=== PATIENT | female | born 1970 | race Caucasian/White ===

== ENCOUNTER 2020-04-07 15:18 | Outpatient (CLI) | payer BC, SELFPAY ==
--- NOTE | 2020-04-07 15:40 | ECG_ITS ---
Measurements Intervals [place] Rate: 66 P: 48 NC: 109 QRS: 61 QRSD: 75 T: 42 QT: 385 QTc: 404 Interpretive Statements SINUS RHYTHM WITH SHORT NC INTERVAL BASELINE ARTIFACT- I, III, V3 BORDERLINE ECG Electronically Signed On 04-07-2020 15:45:09 MARKET RESEARCH EXECUTIVE by Eitan Boles D.O.
== END 2020-04-07 15:19 | disposition home or self-care (01) ==
LOC: CHSCARD 15:20
PROVIDERS: Visit Provider Podiatrist Foot & Ankle Surgery
DX: E11.42 Type 2 diabetes mellitus with diabetic polyneuropathy (principal)
CPT/HCPCS: 93005

== ENCOUNTER 2020-07-25 13:34 | Outpatient (CLI) | payer BC, SELFPAY ==
--- NOTE | ~2020-07-25 | DEXA_ITS ---
Bone Density Report Name: Elaina Mora Age: 50 Sex: Female Ethnicity: White Date of : 1970 Indication: postmenopausal; screening for osteoporosis; hysterectomy; Referring Provider: Sonam Moreland Study: Bone densitometry was performed. Exam Date: July 25, 2020 Accession number: [id number] Bone Density: Region BMD T-score Z-score Classification AP Spine(L1-L4) 1.000 -0.4 0.4 Normal Femoral Neck (Left) 0.926 0.7 1.5 Normal Total Hip (Left) 1.097 1.3 1.8 Normal Femoral Neck (Right) 0.905 0.5 1.3 Normal Total Hip (Right) 1.083 1.2 1.7 Normal Femoral Neck Mean 0.916 0.6 1.4 Normal Total Hip Mean 1.090 1.2 1.7 Normal World Health Organization criteria for BMD impression classify patients as: Normal (T-score at or above -1.0), Osteopenia (T-score between -1.0 and -2.5), or Osteoporosis (T-score at or below -2.5). 10-year Fracture Risk: FRAX not reported because: All T-scores for Spine Total, Hip Total, Femoral Neck at or above -1.0 Clinical Information Provided by Patient: Smokes Has the following medical conditions: Hysterectomy Patient maximum height was 64 Menopause Age: 50 Drinks caffeinated beverages Onset of menses at age 11 Number of children 2 Impression: The patient has normal bone mass. The patient has risk factors, including: smoking. Discussion: BONE DENSITY IS ABOVE THE MINIMUM DESIRABLE LEVEL AT ALL SKELETAL SITES TESTED. This patient?s bone mineral density is above the minimum desirable level (T-score -1.0 or better) at all sites measured. The patient should follow a healthful lifestyle (good nutrition with adequate calcium and vitamin D, and appropriate weight-bearing exercise). Follow-Up: Consider repeating this study in 5 years or sooner if there is some new clinical indication. Reported by: Dr. Aaron Rogers on 07/25/2020 1:57:00 PM. Reviewed, dictated and finalized at location AJaye KINNEY
--- NOTE | ~2020-07-25 | CT_ITS ---
EXAMINATION: CT lung screening DATE: 07/25/2020 14:05 INDICATION: Z87.891 - Personal history of nicotine dependence SMOKER SCREENING,SOB W/EXERTION,CURRENT SMOKER TECHNIQUE: Computed tomography (CT) of the chest was performed without intravenous contrast. Addition al 3D reconstructions utilizing coronal maximum intensity projection (MIP) were performed. Automated exposure control and iterative reconstruction technique were employed. The dose-length product was 65 .85 mGy-cm. COMPARISON: None FINDINGS: There is a region of atelectasis extending anteriorly from a 4.7 x 3.1 cm cavitary right upper lobe m ass. Additional mild discoid atelectasis in the right upper lobe more caudally along the minor fissur e. Remainder of the lungs are clear. No pleural effusion. Heart size is normal. Very small pericardia l effusion. Thoracic aorta is normal in caliber. There is increased soft tissue density extending bet ween the right mainstem bronchus, trachea, aortic arch and superior vena cava suspicious for confluen t metastatic lymphadenopathy. Indeterminate 3.4 x 2.8 cm right adrenal mass which could represent eit her adenoma or metastatic disease. Visualized upper abdomen is otherwise unremarkable. Mild thoracic dextroscoliosis. There are couple mild superior endplate compression fractures at T9 and T11. IMPRESSION: 1. 4.7 x 3.1 cm right upper lobe centrally cavitary mass most concerning for malignancy with differen tial including atypical fungal or mycobacterial pneumonia. The lesion would be amenable to percutaneo us CT-guided biopsy which be recommended. 2. Increased soft tissue density in the mediastinum along the right mainstem bronchus which is concer champ for metastatic disease. 3. Indeterminate 3.4 cm right adrenal mass which could represent either adrenal adenoma or metastatic disease. Reviewed, dictated and finalized at location A. IMPRESSION: 1. 4.7 x 3.1 cm right upper lobe centrally cavitary mass most concerning for ma lignancy with differential including atypical fungal or mycobacterial pneumonia . The lesion would be amenable to percutaneous CT-guided biopsy which be recomm ended. 2. Increased soft tissue density in the mediastinum along the right mainstem br onchus which is concerning for metastatic disease. 3. Indeterminate 3.4 cm right adrenal mass which could represent either adrenal adenoma or metastatic disease.
== END 2020-07-25 13:35 | disposition home or self-care (01) ==
LOC: CHSIMG 13:37
PROVIDERS: PCP Nurse Practitioner; Visit Provider Nurse Practitioner
DX: Z78.0 Asymptomatic menopausal state (principal); Z87.891 Personal history of nicotine dependence
CPT/HCPCS: 71271; 77080

== ENCOUNTER → 2020-08-04 00:17 | Outpatient (CLI) | payer BC, SELFPAY ==
[2020-08-04 19:29] LABS: SARS-CoV-2 RNA PCR Negative
== END ==
PROVIDERS: PCP Nurse Practitioner; Visit Provider Nurse Practitioner
DX: Z01.812 Encounter for preprocedural laboratory examination (principal); Z20.822 Contact with and (suspected) exposure to COVID-19
CPT/HCPCS: C9803; U0003; U0005

== ENCOUNTER 2020-08-07 09:59 | Outpatient (CLI) | payer BC, SELFPAY ==
[2020-07-30 15:51] VITALS: BMI 24.0
[2020-08-07] VITALS (10 sets, daily range): BP systolic 85–105; BP diastolic 53–77; PULSE 70–87; RESP 14–18; O2SAT 96–100
--- NOTE | ~2020-08-07 | XR_ITS ---
EXAMINATION: XR chest 1V portable DATE: 08/07/2020 14:32 INDICATION: Right lung upper lobe mass status post percutaneous biopsy. TECHNIQUE: A single frontal view of the chest was obtained. COMPARISON: Chest single view at 1:10 PM FINDINGS: There is a cavitary mass in right lung upper lobe. There is mild atelectasis in right lung upper lobe. Right hilar lymphadenopathy is noted. No pleural effusion or pneumothorax. The heart size is normal. IMPRESSION: 1. Cavitary mass in right lung upper lobe, consistent with primary bronchogenic carcinoma. 2. Right hilar lymphadenopathy, consistent with metastatic disease. Reviewed, dictated and finalized at location A.
--- NOTE | ~2020-08-07 | XR_ITS ---
EXAMINATION: XR chest 1V portable DATE: 08/07/2020 13:07 INDICATION: Right lung nodule status post percutaneous biopsy. TECHNIQUE: A single frontal view of the chest was obtained. COMPARISON: Chest single view at 11:34 AM FINDINGS: There is a cavitary mass in right lung upper lobe. There is mild atelectasis in right lung upper lobe. Right hilar lymphadenopathy is noted. No pleural effusion or pneumothorax. The heart size is normal. IMPRESSION: 1. Cavitary mass in right lung upper lobe, consistent with primary bronchogenic carcinoma. 2. Right hilar lymphadenopathy, consistent with metastatic disease. Reviewed, dictated and finalized at location A.
--- NOTE | ~2020-08-07 | XR_ITS ---
EXAMINATION: XR chest 1V DATE: 08/07/2020 11:38 INDICATION: Right lung upper lobe nodule status post percutaneous biopsy. TECHNIQUE: A single frontal view of the chest was obtained. COMPARISON: Chest CT 07/25/2020 FINDINGS: There is a cavitary mass in right lung upper lobe. There is mild atelectasis in right upper lobe. There is right hilar lymphadenopathy. No pleural effusion or pneumothorax. The heart size is n ormal. IMPRESSION: 1. Cavitary mass in right lung upper lobe, consistent with primary bronchogenic carcinoma. 2. Right hilar lymphadenopathy, consistent with metastatic disease. Reviewed, dictated and finalized at location A.
--- NOTE | ~2020-08-07 | CT_ITS ---
EXAMINATION: CT biopsy lung w/imaging DATE: 08/07/2020 11:31 INDICATION: Right lung mass. TECHNIQUE: The procedure including the risks, benefits, and alternatives and possibility of chest tub e placement were discussed with the patient. Risks discussed included infection, approximately 1/20 r isk of symptomatic hemorrhage beyond mild hemoptysis, approximately 1/3 risk of pneumothorax, approxi mately 1/10 risk of pneumothorax severe enough to warrant chest tube placement, and rarely . The patient understood the risks and agreed to proceed. The patient was placed supine. The skin overlyi ng the right lung upper lobe was prepped and draped in sterile fashion. Anesthetic was administered with 1% lidocaine subcutaneously. A 19 gauge outer needle was advanced under CT guidance to the lesi on of interest. A 20 gauge core biopsy needle was then used to obtain 3 core biopsy specimens. The ne edle was removed and the entry site was cleaned and dressed. The mA was adjusted according to patient size. Iterative reconstruction technique was employed. The dose-length product was 100.11 mGy-cm. T here were no immediate complications. FINDINGS: CT images demonstrate the outer needle tip in a 5.6 x 3.4 cm cavitary mass in right lung up per lobe. IMPRESSION: 1. CT-guided core needle biopsy of a cavitary mass in right lung upper lobe. Reviewed, dictated and finalized at location A.
[2020-08-07 10:18] LABS: Basophils Absolute Auto 0.1 K/mm3 (0.0-0.1); Basophils Percent Auto 0.7 % (0.2-1.2); Eosinophils Absolute Auto 0.5 K/mm3 (0-0.3); Eosinophils Percent Auto 6.4 % (0-4.4); Hematocrit 37.4 % (37.0-47.0); Hemoglobin 12.4 g/dL (12.0-15.0); Immature Granulocyte Absolute 0.03 K/mm3 (0.00-0.031); Immature Granulocyte Percent A 0.4 % (0-0.5); Lymphocytes Absolute Auto 1.57 K/mm3 (0.9-3.2); Lymphocytes Percent Auto 21.9 % (18.3-44.2); Mean Corpuscular HGB Conc 33.2 g/dl (32-36); Mean Corpuscular Hemoglobin 32.5 pg (26-34); Mean Corpuscular Volume 97.9 fl (80-100); Mean Platelet Volume 8.4 fl (7.4-10.4); Monocytes Absolute Auto 1.1 K/mm3 (0.1-0.6); Monocytes Percent Auto 15.4 % (2.6-8.5); Neutrophils Percent Auto 55.2 % (45.5-73.1); Platelet Count Result 330 k/mm3 (150-375); Red Blood Count 3.82 M/mm3 (4.2-5.4); Red Cell Distribution Width 11.9 % (11.5-14.5); White Blood Count 7.2 K/mm3 (4.5-10.0)
[2020-08-07 10:19] LABS: Mean Platelet Volume 8.3 fl (7.4-10.4); Platelet Count Result 349 k/mm3 (150-375)
[2020-08-07 10:28] LABS: INR 0.9; Prothrombin Time 12.6 Seconds (11.1-14.7)
[2020-08-07 10:30] LABS: Alanine Aminotransferase 13 U/L (4-35); Albumin Level 4.4 g/dL (3.5-5.1); Alkaline Phosphatase 68 U/L (38-126); Anion Gap 5 mmol/L (8-16); Aspartate Amino Transferase 27 U/L (14-36); Bilirubin,Total 0.1 mg/dL (0.2-1.3); Blood Urea Nitrogen 9 mg/dL (7-17); Calcium 9.3 mg/dL (8.4-10.2); Carbon Dioxide 29 mmol/L (22-30); Chloride 105 mmol/L (98-107); Cholesterol 213 mg/dL (0-200); Estimated CRCL calculation 71 ml/min; Estimated Glomerular Filt Rate > 60; Glucose 106 mg/dL (65-105); HDL Direct 55 mg/dL; Potassium 4.5 mmol/L (3.4-5.0); Sodium 139 mmol/L (137-145); Triglycerides 83 mg/dL (<150)
[2020-08-07 10:40] LABS: LDL Cholesterol Direct 127 mg/dL
[2020-08-07 10:43] LABS: Hemoglobin A1C 5.7 % (<5.7)
[2020-08-07 10:46] LABS: Iron 43 ug/dL (37-170)
[2020-08-07 11:13] LABS: Percent Iron Saturation 17 % (20-50)
--- NOTE | 2020-08-07 14:58 | SUR.PHASEII ---
1451- Call from Dr. Gonzalez that patient's chest x-rays are stable and she is cleared for discharge.
== END 2020-08-07 15:15 | disposition home or self-care (01) ==
PROVIDERS: Radiology Diagnostic Radiology; PCP Internal Medicine; Visit Provider Nurse Practitioner
DX: R91.8 Other nonspecific abnormal finding of lung field (principal); D64.9 Anemia, unspecified; Z13.6 Encounter for screening for cardiovascular disorders; Z13.29 Encounter for screening for other suspected endocrine disorder; Z13.220 Encounter for screening for lipoid disorders; Z13.1 Encounter for screening for diabetes mellitus
CPT/HCPCS: 32408; 36415; 71045; 80053; 80061; 83036; 83540; 83550; 84443; 85025; 85049; 85610; 88305

== ENCOUNTER 2020-08-15 13:27 | Outpatient (CLI) | payer BC, SELFPAY ==
--- NOTE | ~2020-08-15 | XR_ITS ---
XR chest 2V DATE: 08/15/2020 13:46 INDICATION: Shortness of breath. Recent lung biopsy. TECHNIQUE: PA and lateral views/ portable upright AP chest COMPARISON: 07/19/2020 CT lung screening FINDINGS: Again noted is a cavitary mass of the right upper lobe and right upper lobe atelectasis. No right pneumothorax post recent CT-guided right upper lobe mass needle biopsy. No pleural effusion is evident. The cardiac silhouette is enlarged with transverse cardiothoracic ratio 16/30 is suggestive of either cardiomegaly or possibly pericardial effusion. No pulmonary infiltrate or consolidation, pulmonary vascular congestion or pneumothorax is evident. Mild thoracic dextroscoliosis. IMPRESSION: Persistent cavitary right upper lobe mass in right upper lobe atelectasis Cardiac silhouette enlargement; consider cardiomegaly or pericardial effusion Reviewed, dictated and finalized at location A. IMPRESSION: Persistent cavitary right upper lobe mass in right upper lobe atele ctasis Cardiac silhouette enlargement; consider cardiomegaly or pericardial effusion
== END 2020-08-15 13:28 | disposition home or self-care (01) ==
LOC: ANHIMG 13:32
PROVIDERS: PCP Internal Medicine; Visit Provider Internal Medicine
DX: R06.02 Shortness of breath (principal); R91.8 Other nonspecific abnormal finding of lung field
CPT/HCPCS: 71046

== ENCOUNTER 2020-08-17 07:28 | Inpatient (IN) | payer BC, SELFPAY ==
[2020-08-17] VITALS (20 sets, daily range): BP systolic 84–118; BP diastolic 57–75; PULSE 90–116; RESP 19–32; TEMP 36.3–36.8; O2SAT 92–100; BMI 24.5
--- NOTE | 2020-08-17 | ECHO_ITS ---
Patient Info Name: Elaina Mora Age: 50 years : 1970 Gender: Female Ht: 64 in Wt: 143 lbs BSA: 1.72 m2 HR: 86 bpm BP: 123 / 65 mmHg Technical Quality: Good Exam Date: 08/17/2020 11:59 AM Exam Location: [facility] Patient Status: Inpatient Admit Date: 08/17/2020 Staff Ordering Physician: Ovidio Urias MD Senior Marketing Specialist: Mitchell Lucio, ANIKA, RT Attending Provider: Junior Huerta MD Exam Type: CA echo doppler color flow Study Info Indications I31.3 - Pericardial effusion (noninflammatory) Complete two-dimensional, color flow and Doppler transthoracic echocardiogram is performed. Summary 1. Complete two-dimensional, color flow and Doppler transthoracic echocardiogram is performed. 2. Left ventricular systolic function is normal, estimated at 60-65%. 3. There is no increased left ventricular wall thickness. 4. The pericardium appears increased echogenicity of the pericardium. 5. There is small pericardial effusion. Left Ventricle Left ventricular chamber dimension is normal. Left ventricular systolic function is normal, estimated at 60-65%. There is no increased left ventricular wall thickness. Left ventricular septal wall motion is normal. The left ventricular diastolic function is normal. Right Ventricle Right ventricular chamber dimension is normal. Right ventricular systolic function is normal. Left Atria Left atrial chamber dimension is normal. Right Atria Right atrial chamber dimension is normal. Aortic Valve The aortic valve is trileaflet. There is no aortic valve sclerosis. There is no aortic valve stenosis. There is no aortic valve regurgitation. Pulmonic Valve The pulmonic valve is normal. There is no pulmonic valve stenosis. There is no pulmonic regurgitation. Mitral Valve The mitral valve has normal leaflets. There is no mitral valve stenosis. There is trace mitral valve regurgitation. Tricuspid Valve The tricuspid valve leaflets are normal. There is no significant tricuspid valve stenosis. There is no tricuspid valve regurgitation. No pulmonary hypertension, estimated pulmonary arterial systolic pressure is Empty. Pericardium/Pleural The pericardium appears increased echogenicity of the pericardium. There is small pericardial effusion. Aorta The aortic root size at the sinus of Valsalva is normal. The prox ascending aorta size is normal. Left Ventricular Outflow Tract Name Value Normal LVOT 2D LVOT Diameter 2.1 cm LVOT Doppler LVOT Peak Gradient 4 mmHg LVOT Mean Gradient 2 mmHg LVOT VTI 21 cm LVOT VTI/AV VTI Ratio 0.9 LVOT Stroke Volume 69 ml LVOT CO 6.3 l/min LVOT CI 3.7 l/min/m2 Mitral Valve Name Value Normal MV Doppler ---------
--- NOTE | 2020-08-17 | ECHOL_ITS ---
Patient Info Name: Elaina Mora Age: 50 years : 1970 Gender: Female Ht: 64 in Wt: 143 lbs BSA: 1.72 m2 HR: 105 bpm BP: 91 / 57 mmHg Technical Quality: Good Exam Date: 08/17/2020 10:48 AM Exam Location: [facility] Patient Status: Inpatient Admit Date: 08/17/2020 Staff Ordering Physician: Dominga Sanches MD Sanitation Worker: Mitchell Lucio, ANIKA, RT Attending Provider: Junior Huerta MD Exam Type: CA echo limited Study Info Indications I31.3 - Pericardial effusion (noninflammatory) Limited two-dimensional transthoracic echocardiogram is performed. Summary 1. There is mildly increased left ventricular wall thickness. 2. Left ventricular systolic function is normal, estimated at 55-60%. 3. There is consistent with cardiac tamponade pericardial effusion. Left Ventricle Left ventricular chamber dimension is normal. Left ventricular systolic function is normal, estimated at 55-60%. There is mildly increased left ventricular wall thickness. Left ventricular septal wall motion is abnormal with septal motion related to bundle branch block. The left ventricular diastolic function is normal. Right Ventricle Right ventricular chamber dimension is decreased. Right ventricular systolic function is normal. collapse noted in systole. Ventricular Septum paradoxical motion due to tamponade. Left Atria Left atrial chamber dimension is normal. Right Atria Right atrial chamber dimension is normal. Aortic Valve The aortic valve is trileaflet. There is no aortic valve sclerosis. There is no aortic valve stenosis. There is no aortic valve regurgitation. Pulmonic Valve The pulmonic valve is normal. There is no pulmonic valve stenosis. There is no pulmonic regurgitation. Mitral Valve The mitral valve has normal leaflets. There is no mitral valve stenosis. There is no mitral valve regurgitation. Tricuspid Valve The tricuspid valve leaflets are normal. There is no significant tricuspid valve stenosis. There is no tricuspid valve regurgitation. No pulmonary hypertension, estimated pulmonary arterial systolic pressure is Empty. Pericardium/Pleural The pericardium appears normal. There is consistent with cardiac tamponade pericardial effusion. Aorta The aortic root size at the sinus of Valsalva is normal. The prox ascending aorta size is normal. Report Signatures
--- NOTE | ~2020-08-17 | XR_ITS ---
EXAMINATION: XR chest 1V DATE: 08/17/2020 09:05 INDICATION: Shortness of breath. Recent right lung biopsy. TECHNIQUE: frontal view of the chest was obtained. COMPARISON: Chest radiograph dated 08/15/2020 FINDINGS: Again seen is consolidation volume loss in the right upper lobe with central lucency corresponding to the biopsied cavitary right upper lobe mass. New opacities at the left lower lung zone with obscurat ion of the apex of the heart which could represent atelectasis and/or pneumonia. No pneumothorax or d efinitive pleural effusion. Enlargement of the cardiac silhouette with globular silhouette which coul d represent cardiomegaly but which is significantly increased since 08/07/2020 or suspicious for perica rdial effusion. IMPRESSION: 1. Enlarged and globular cardiac silhouette significantly increased since 08/07/2020 most concerning fo r pericardial effusion. 2. Cavitary right upper lobe mass with partial collapse of the right upper lobe. 3. New opacities in the left lower lung zone which could represent atelectasis and/or pneumonia. Reviewed, dictated and finalized at location A. IMPRESSION: 1. Enlarged and globular cardiac silhouette significantly increased since 021 most concerning for pericardial effusion. 2. Cavitary right upper lobe mass with partial collapse of the right upper lobe . 3. New opacities in the left lower lung zone which could represent atelectasis and/or pneumonia.
--- NOTE | ~2020-08-17 | US_ITS ---
EXAMINATION: US venous doppler [facility] DATE: 08/17/2020 14:33 INDICATION: Pulmonary embolism. TECHNIQUE: Grayscale ultrasound images without and with compression and Doppler ultrasound images of the bilateral lower extremity veins were obtained. COMPARISON: None. FINDINGS: The visualized portions of right common femoral vein, profunda (deep) femoral vein, femoral vein, pop liteal vein, posterior tibial veins, peroneal veins, gastrocnemius vein and greater saphenous vein ou tflow are patent. The visualized portions of left common femoral vein, profunda femoral vein, femoral vein, popliteal v ein, posterior tibial veins, peroneal veins, gastrocnemius vein and greater saphenous vein outflow ar e patent. There is increased venous pulsatility extending to the popliteal veins at both knees. IMPRESSION: 1. No deep venous thrombosis in either lower limb. 2. Increased venous pulsatility in both lower limbs which can be seen with tricuspid regurgitation, r ight heart failure or other causes of elevated right heart pressures. Reviewed, dictated and finalized at location A. IMPRESSION: 1. No deep venous thrombosis in either lower limb. 2. Increased venous pulsatility in both lower limbs which can be seen with tric uspid regurgitation, right heart failure or other causes of elevated right hear t pressures.
--- NOTE | ~2020-08-17 | XR_ITS ---
XR chest 1V portable DATE: 08/18/2020 05:33 INDICATION: Pericardial effusion TECHNIQUE: Portable upright AP chest on 08/18/2020 at 0513 hours COMPARISON: 08/17/[address] pulmonary scan FINDINGS: Cavitary right upper lobe mass and right upper lobe atelectasis are again noted. There is bilateral infiltrate and/atelectasis in the mid and to a greater extent lower lung zones. Diminished size of cardiac silhouette compared to 08/15/2020. Large pericardial effusion was demonstra levi on 08/17/2020 CT pulmonary scan; a catheter overlies the cardiac silhouette on the current radiogr aph.. IMPRESSION: Catheter overlying cardiac silhouette with interval diminished cardiac size since 08/16/19 21, suggesting diminished pericardial effusion Persistent cavitary right upper lobe mass and right upper lobe atelectasis Infiltrate and/atelectasis in the mid and lower lung zones since 08/15/2020 Reviewed, dictated and finalized at location A. IMPRESSION: Catheter overlying cardiac silhouette with interval diminished card iac size since 08/15/2020, suggesting diminished pericardial effusion Persistent cavitary right upper lobe mass and right upper lobe atelectasis Infiltrate and/atelectasis in the mid and lower lung zones since 08/15/2020
--- NOTE | ~2020-08-17 | CT_ITS ---
EXAMINATION: CTA chest PE abdomen pel DATE: 08/17/2020 08:59 INDICATION: Chest pressure. Abdominal pain and bloating. TECHNIQUE: Computed tomography (CT) pulmonary angiogram of the chest was performed with 100 mL Omnipa que-350 intravenous contrast. Additional 3D reconstructions utilizing coronal maximum intensity proje ction (MIP) were performed. CT of the abdomen and pelvis was performed with intravenous contrast util izing the same contrast bolus following a short delay. Automated exposure control and iterative recon struction technique were employed. The dose-length product was 627.36 mGy-cm. COMPARISON: None FINDINGS: Chest: Excellent contrast opacification of the pulmonary arteries. There is moderate streak artifact from de nse contrast in the superior vena cava and right atrium. Mild scattered respiratory motion artifact. A few small pulmonary arterial filling defects consistent with pulmonary emboli in the left lower lob e at the defecation into the posterior and lateral basilar segmental pulmonary arteries, in the anter ior basilar segmental pulmonary artery and in the right lower lobe in one of the subsegmental pulmona ry arteries in the lateral basilar segment. Mild emphysema. There is a small amount of gas within the necrotic center of the recently biopsied 4. 6 x 4.0 cm cavitary mass in the right upper lobe. There is worsening atelectasis in the anterior and paramediastinal right upper lobe. New small posteriorly layering right pleural effusion. 6 mm infrahi lar left lower lobe nodule. There is additional new compressive atelectasis in the anterior lingula a nd left lower lobe which appears to result from a new large pericardial effusion. This appears to res ult in NOT physiology with new mild relative enlargement of the right ventricle with leftward bowing of the ventricular septum. Again seen is confluent soft tissue density extending between the right ma instem bronchus, trachea, aortic arch superior vena cava suspicious for metastatic lymphadenopathy. C hronic superior endplate compression fractures with mild central vertebral body height loss at T9 and T11. Abdomen/pelvis: 3.2 cm heterogeneously enhancing right adrenal mass. Prominent periportal edema throughout the liver. There is small amount of ascites surrounding the nondistended gallbladder as well as in the pelvis. Mild mesenteric edema. Mild colonic wall thickening which appears combination of fatty infiltration a nd edema. No bowel obstruction. There is moderate colonic diverticulosis with a sigmoid predominance. There is no adjacent inflammatory change to suggest diverticulitis. Normal appendix. Bladder is nor mal. The uterus is not identified and has likely been surgically resected. Mild thoracolumbar levocur vature. No suspicious lytic blastic bone lesions. IMPRESSION: 1. New large pericardial effusion with findings suggestive of cardiac tamponade not including right v entricular enlargement and leftward bowing of the interventricular septum as well as extensive conges tive changes in the abdomen and pelvis including mesenteric and periportal edema and small amount of ascites. Dr. Lopez discussed these findings with Dr. Sanches at 9:15 AM. 2. A few small pulmonary emboli with low clot in a few subsegmental pulmonary arteries of the bilater al lower lobes. 3. Cavitary right upper lobe mass concerning for malignancy with suspicion for confluent metastatic l ymphadenopathy at the right hilum and adjacent mediastinum. 4. New small right pleural effusion. 5. Mild emphysema. 6. Mild colonic wall thickening likely combination of fatty infiltration and congestive changes. Diff erential would include less likely infectious or inflammatory colitis. 7. Indeterminate 3.2 cm right adrenal mass which could represent adenoma, metastatic disease, primary adrenal carcinoma or pheochromocytoma. 8. Diverticulosis.
--- NOTE | 2020-08-17 07:50 | ECG_ITS ---
Measurements Intervals [place] Rate: 101 P: 40 NE: 119 QRS: 51 QRSD: 72 T: 41 QT: 345 QTc: 448 Interpretive Statements SINUS TACHYCARDIA WITH SHORT NE INTERVAL BASELINE ARTIFACT- I, II, V1, V4-V6 BORDERLINE ECG Electronically Signed On 08-17-2020 9:07:38 CDT by Eitan Boles D.O.
--- NOTE | 2020-08-17 07:59 | PCRCNOTE ---
ABG NOT DRAWN; CANCELLED PER DR. MCGEE AT BEDSIDE.
[2020-08-17] MEDS: SODIUM CHLORIDE 0.9% IV 1,000 ML 999 ML IV CONT ×2 (08:04→08:05)
--- NOTE | 2020-08-17 08:04 | ED.GENADULT ---
HPI - General Adult General Chief complaint: Shortness of Breath/Dyspnea Stated complaint: SOB, Chest tightness, n/v Time Seen by Provider: 08/17/20 07:37 Source: patient and family Limitations: no limitations History of Present Illness HPI narrative: Patient is 50 years old white female presented to the ED with shortness of breath and vomiting. The above symptoms started 6 days ago. Patient been vomiting on average 4 times a day. For the upper abdominal discomfort. Patient denies increased coughing compared to the past. History of lung mass, inconclusive biopsy, scheduled for biopsy repeat. Patient denies any fever, back pain, chest pain, headache. Related Data Home Medications Medication Instructions Recorded Confirmed lisinopril 10 mg tablet 10 mg PO DAILY 07/23/20 08/15/20 Allergies Allergy/AdvReac Type Severity Reaction Status Date / Time amoxicillin Allergy Intermediate Blister Verified 08/17/20 08:14 Review of Systems Review of Systems: Narrative: CONSTITUTIONAL: Denies fever, chills, or sweats. EYES: Denies visual changes, redness, or discharge. ENT: Denies rhinorrhea, congestion, sore throat, or otalgia. CARDIOVASCULAR: Denies chest pain, palpitations, or edema. RESPIRATORY: Denies cough or dyspnea. GASTROINTESTINAL: Denies abdominal pain, nausea, vomiting, or diarrhea. GENITOURINARY: Denies dysuria or hematuria. SKIN: Denies rash or itching. MUSCULOSKELETAL: Denies back pain, joint pain, or myalgia. NEUROLOGIC: Denies headache, numbness, or weakness. PSYCHIATRIC: Denies anxiety or depression. [facility] Past Medical History Medical History Anemia Essential hypertension Surgical History Surgical History AC (acromioclavicular) joint bone spurs Bunion of right foot H/O: hysterectomy Family History Family History Grandparent Malignant neoplasm of prostate Grandparent Diabetes mellitus Social History Social History Smoking packs per day: 1 Smoking cigarettes per day: 20.0 Years smoked: 30 Smoking pack-years: 30.00 Tobacco type: cigarettes Second hand tobacco smoke exposure: No Alcohol intake: current Drinks per week: 5 Substance use: never Gender identity (if verbalized by the patient): Female Exam Narrative: Exam Narrative: General appearance: Well-developed, well-nourished, looks ill, hyperventilation Skin: Pale skin Head: Normocephalic, nontraumatic Eyes: Clear conjunctiva ENT: Oropharynx normal, ears normal, nose normal Neck: Supple, nontender Chest and respiratory: Airway patent, no respiratory distress, no accessory muscle use Heart: Regular rate/rhythm Abdomen: Soft, distended, severe tenderness epigastric area Vascular: Normal peripheral pulses, normal capillary refill. Musculoskeletal: Normal range of motion, nontender back Neurologic: Alert and oriented ?3, DIRECTOR SEMICONDUCTOR is normal as tested, no gross motor deficit Course Course Emergency Course: Stable Consultations Consultation #1: Dr. Urias Patient to go to cardiac cath for pericardiocentesis Date: 08/17/20 Time: 10:02 Consultation #2: DR MILLER Date: 08/17/20 Time: 10:03 Vital Signs Vital signs: Vital Signs Temperature 36.3 C L 08/17/20 07:37 Pulse Rate 116 H 08/17/20 07:37 Respiratory Rate 24 H 08/17/20 07:37 Blood Pressure 84/66 L 08/17/20 07:37 Pulse Oximetry 99 08/17/20 07:37 Temperature 36.3 C L 08/17/20 07:37 Pulse Rate 116 H 08/17/20 07:37 Respiratory Rate 24 H 08/17/20 07:37 Blood Pressur
[2020-08-17] MEDS: ONDANSETRON INJ 4 MG/2 ML VIAL IV PUSH (08:13)
[2020-08-17 08:18] LABS: Basophils Percent Auto 0.2 % (0.2-1.2); Hematocrit 29.8 % (37.0-47.0); Hemoglobin 9.9 g/dL (12.0-15.0); Immature Granulocyte Absolute 0.07 K/mm3 (0.00-0.031); Immature Granulocyte Percent A 0.4 % (0-0.5); Lymphocytes Absolute Auto 1.51 K/mm3 (0.9-3.2); Lymphocytes Percent Auto 9.4 % (18.3-44.2); Mean Corpuscular HGB Conc 33.2 g/dl (32-36); Mean Corpuscular Hemoglobin 32.2 pg (26-34); Mean Corpuscular Volume 97.1 fl (80-100); Mean Platelet Volume 9.6 fl (7.4-10.4); Monocytes Absolute Auto 1.2 K/mm3 (0.1-0.6); Monocytes Percent Auto 7.3 % (2.6-8.5); Neutrophils Absolute Auto 13.3 K/mm3 (1.3-6.7); Neutrophils Percent Auto 82.7 % (45.5-73.1); Platelet Count Result 420 k/mm3 (150-375); Red Blood Count 3.07 M/mm3 (4.2-5.4); Red Cell Distribution Width 12.4 % (11.5-14.5); White Blood Count 16.1 K/mm3 (4.5-10.0)
[2020-08-17 08:31] LABS: INR 1.2; Partial Thromboplastin Time 27.1 SECONDS (22.3-36.8); Prothrombin Time 15.6 Seconds (11.1-14.7)
[2020-08-17] MEDS: HYDROmorphone HCL INJ (*CRX) 1 MG/ML SYR 0.5 MG IV PUSH (08:40)
--- NOTE | 2020-08-17 08:44 | PC.NURSE ---
Pt to CT via stretcher on tele monitor.
[2020-08-17 09:03] LABS: Estimated CRCL calculation 40 ml/min; Estimated Glomerular Filt Rate 43
[2020-08-17 09:09] LABS: Alanine Aminotransferase 87 U/L (4-35); Alkaline Phosphatase 78 U/L (38-126); Anion Gap 10 mmol/L (8-16); Aspartate Amino Transferase 50 U/L (14-36); Bilirubin,Total 0.5 mg/dL (0.2-1.3); Blood Urea Nitrogen 24 mg/dL (7-17); Calcium 9.2 mg/dL (8.4-10.2); Carbon Dioxide 21 mmol/L (22-30); Chloride 100 mmol/L (98-107); Estimated CRCL calculation 40 ml/min; Estimated Glomerular Filt Rate 43; Glucose 229 mg/dL (65-105); Lipase 22 U/L (23-300); Magnesium 1.9 mg/dL (1.6-2.3); Potassium 4.7 mmol/L (3.4-5.0); Sodium 131 mmol/L (137-145)
[2020-08-17 09:17] LABS: NT Pro B Type Natriuretic Pept 571 PG/ML (5-100)
[2020-08-17 09:44] LABS: Add Urine Microscopic? YES; Appearance Urine Cloudy (Clear); Bacteria Urine Trace /hpf; Bilirubin Urine Negative (Negative); Blood Urine Negative (Negative); Color Urine Yellow (Yellow); Glucose Urine UA Negative (Negative); Ketones Urine Negative (Negative); Leukocyte Esterase Ur Negative LEU/UL (Negative); Nitrate Urine Negative (Negative); Protein Urine 1+ mg/dL (Negative); Squamous Epithelial Cell Urine Many /hpf (Few); Urobilinogen Urine Negative mg/dL (<2.0); WBC Urine 0-3 /hpf
--- NOTE | 2020-08-17 10:26 | PC.NURSE ---
Template Reproduction Technician at bedside with EDP discussing POC.
--- NOTE | 2020-08-17 10:32 | WPDMODSED ---
Moderate Sedation Note-Pt Data Patient Data Allergies Allergy/AdvReac Type Severity Reaction Status Date / Time amoxicillin Allergy Intermediate Blister Verified 08/17/20 08:14 Home Medications Medication Instructions Recorded Confirmed Type lisinopril 10 mg tablet 10 mg PO DAILY 07/23/20 08/15/20 History Sedation/Anesthesia: No previous sedation/anesthesia problems (including family history). PMFSH Past Medical History Medical History Anemia Essential hypertension Surgical History Surgical History AC (acromioclavicular) joint bone spurs Bunion of right foot H/O: hysterectomy Family History Family History Grandparent Malignant neoplasm of prostate Grandparent Diabetes mellitus Social History Social History Smoking packs per day: 1 Smoking cigarettes per day: 20.0 Years smoked: 30 Smoking pack-years: 30.00 Tobacco type: cigarettes Second hand tobacco smoke exposure: No Alcohol intake: current Drinks per week: 5 Substance use: never Gender identity (if verbalized by the patient): Female Mod Sed Physical Exam Physical Exam Pre Procedural Exam: Normal: Appearance, Eyes, Ears, Nose, Neck, Throat, Airway, Lungs, Heart Size, Heart Rate, Heart Rhythm, Neuro Exam, Abdomen, Liver, Kidneys, Spleen, Breasts, Genitalia, Extremities and Skin Hours since solid foods: 6 Hours since liquid intake: 6 Internal Medicine - PN: Obj Da Vital Signs Vital Signs: Vital Signs - 24 hr 08/17/20 07:37 08/17/20 08:25 08/17/20 08:38 Temperature 36.3 C L Pulse Rate 116 H 101 H 101 H Respiratory Rate 24 H 31 H Blood Pressure 84/66 L 97/71 L Pulse Oximetry 99 100 08/17/20 09:05 08/17/20 09:13 08/17/20 09:58 Temperature Pulse Rate 101 H 104 H Respiratory Rate 23 H 31 H Blood Pressure 94/73 L 91/72 L Pulse Oximetry 97 100 96 08/17/20 10:27 Temperature Pulse Rate 105 H Respiratory Rate 27 H Blood Pressure 91/57 L Pulse Oximetry 98 Intake/Output Intake/Output: Intake & Output 08/14/20 08/15/20 08/16/20 08/17/20 23:59 23:59 23:59 23:59 Intake Total 1999 Balance 1999 Meds/Results Radiology Results: ITS Impressions Chest X-Ray 08/17/20 09:12 IMPRESSION: 1. Enlarged and globular cardiac silhouette significantly increased since 08/07/2020 most concerning for pericardial effusion. 2. Cavitary right upper lobe mass with partial collapse of the right upper lobe. 3. New opacities in the left lower lung zone which could represent atelectasis and/or pneumonia. Chest/Abdomen/Pelvis CTA 08/17/20 09:17 IMPRESSION: 1. New large pericardial effusion with findings suggestive of cardiac tamponade not including right ventricular enlargement and leftward bowing of the interventricular septum as well as extensive congestive changes in the abdomen and pelvis including mesenteric and periportal edema and small amount of ascites. Dr. Lopez discussed these findings with Dr. Sanches at 9:15 AM. 2. A few small pulmonary emboli with low clot in a few subsegmental pulmonary arteries of the bilateral lower lobes. 3. Cavitary right upper lobe mass concerning for malignancy with suspicion for confluent metastatic lymphadenopathy at the right hilum and adjacent mediastinum. 4. New small right pleural effusion. 5. Mild emphysema. 6. Mild colonic wall thickening likely combination of fatty infiltration and congestive changes. Differential would include less likely infectious or inflammatory colitis. 7. Indeterminate 3.2 cm right adrenal mass which could represent adenoma, metastatic disease, primary adrenal carcinoma or pheochromocytoma. 8. Diverticulosis. Labs CBC & Chem 7: 08/17/20 08:07 08/17/20 08:52 Labs: Laboratory Results - last 24 hr 0
--- NOTE | 2020-08-17 10:36 | PM.CNCAR ---
Assessment and Plan Assessment and plan (1) Pericardial effusion with cardiac tamponade: Code(s): I31.3 - Pericardial effusion (noninflammatory); I31.4 - Cardiac tamponade Status: Acute Assessment and Plan: per CT she has large effusion with clinical finding of hypotension and distended veins of the neck indicating possible tamponade. Will proceed with emergent pericardiocentesis, procedure was discussed with the patient, risks, benefits, and alternatives were explained. clinical genetics laboratory chief staff are available now and will proceed with pericardiocentesis (2) Pleural effusion: Code(s): J90 - Pleural effusion, not elsewhere classified Status: Acute (3) Shortness of breath: Code(s): R06.02 - Shortness of breath Status: Acute Assessment and Plan: multifactorial, likely is due to pericardial tamponade, along with the lung lesions, and possible PE. Will proceed with pericardiocentesis, continue further evaluation workup for other causes of her shortness of breath History of Present Illness History of Present Illness Consult date/time: 08/17/20 10:36 50 years old lady with history of hypertension, and history of lung lesions, under workup recently, came to hospital because of abdominal pain and shortness of breath started 3 days ago. Came to the hospital noted to have slight tachycardia and borderline hypotension, noted on CT to have large pericardial effusion with possible tamponade. I had to come see her in emergency room because of the above findings, upon further history has no cardiac history, she has lung lesions, currently under workup to consider metastatic disease, but no known primary at. She has [id number] orthopnea mild leg swelling significant fatigue and currently blood pressure is 91/60 heart rate is 104. No history of chest pain history of previous myocardial infarction or history of arrhythmia no history of known coronary artery disease Reason For Visit: Precardiac tamponade Review of Systems Constitutional: Constitutional: Reports fatigue Cardiovascular: Cardiovascular: Reports as per HPI Respiratory: Respiratory: Reports as per HPI [facility] Past Medical History Medical History Anemia Essential hypertension Surgical History Surgical History AC (acromioclavicular) joint bone spurs Bunion of right foot H/O: hysterectomy Family History Family History Grandparent Malignant neoplasm of prostate Grandparent Diabetes mellitus Social History Social History Smoking packs per day: 1 Smoking cigarettes per day: 20.0 Years smoked: 30 Smoking pack-years: 30.00 Tobacco type: cigarettes Second hand tobacco smoke exposure: No Alcohol intake: current Drinks per week: 5 Substance use: never Gender identity (if verbalized by the patient): Female Meds Home Medications and Allergies Home Medications Medication Instructions Recorded Confirmed Type lisinopril 10 mg tablet 10 mg PO DAILY 07/23/20 08/15/20 History Allergies Allergy/AdvReac Type Severity Reaction Status Date / Time amoxicillin Allergy Intermediate Blister Verified 08/17/20 08:14 Vital Signs Vital Signs - 24 hr 08/17/20 07:37 08/17/20 08:25 08/17/20 08:38 Temperature 36.3 C L Pulse Rate 116 H 101 H 101 H Respiratory Rate 24 H 31 H Blood Pressure 84/66 L 97/71 L Pulse Oximetry 99 100 08/17/20 09:05 08/17/20 09:13 08/17/20 09:58 Temperature Pulse Rate 101 H 104 H Respiratory Rate 23 H 31 H Blood Pressure 94/73 L 91/72 L Pulse Oximetry 97 100 96 08/17/20 10:27 Temperature Pulse Rate 105 H Respiratory Rate 27 H Blood Pressure 91/57 L Pulse Oximetry 98 Exam Narrative: Exam Narrative: Awake alert oriented x3 not in acute d
--- NOTE | 2020-08-17 10:48 | PC.NURSE ---
Received report from Doug De Paz. Patient to go to [facility] prior to ICU.
--- NOTE | 2020-08-17 11:14 | PC.NURSE ---
Received report from Control Equipment Electrician Rn
--- NOTE | 2020-08-17 11:23 | P.PCNCC_ITS ---
Cardiac Cath Procedure Note Date of procedure:: 08/17/20 Performing physician:: Ovidio Urias MD Procedure: 1. pericardiocentesis using subxiphoid access 2. Echocardiographic guidance for drainage 3. Conscious sedation. Field Pipe Lines Supervisor: Dr. Ovidio Urias Complications: None. Sedation: Conscious sedation, local anesthesia, using 25 mcg of fentanyl, and using 1% lidocaine for local anesthesia. History: 50-year-old lady with history of lung mass, came to hospital shortness breath and noted to have hypotension with large effusion, suspected of for cardiac tamponade. Brought to the starch factory laborer on urgent basis for drainage Technique: After informed consent was obtained from patient, was brought to the starch factory laborer, put in the starch factory laborer table, prepped and draped in usual sterile fashion. initial ultrasound with echo was done, prior to draping the patient, subsequently with cover the probe, I was able to access the fusion from the subxiphoid area, and subsequently immediately fluid came out seems to be serosanguineous dark red fluid, I was able to drain about 600-700 cc of homogeneous serosanguineous fluid, will be sent for cytology culture CBC and cell count. over the wire short pigtail catheter inserted, and subsequently connected to the drainage bag, the catheter will be left in place for further drainage. And subsequently the catheter was sutured to the abdominal wall, and covered with sterile cover. Patient tolerated showed no complication taken the starch factory laborer to her room in stable condition stable vital signs Summary: large pericardial effusion with pericardial tamponade, status post successful pericardiocentesis, with serous sanguinous homogeneous fluid, suggestive possible malignancy Recommendation: continued drainage and monitor output for next 24 hours. Will send the fluid for analysis
--- NOTE | 2020-08-17 11:45 | ADMGEN ---
This patient, Elaina Mora, was admitted to Intensive Care Unit-9. Patient/family oriented to hospital policies and general routines including ID bracelet, bed and alarms, visiting hours, pain management, procedures, bathroom and other care routines, personal items, smoking policy, room service/diet, and visiting hours. Information on how to activate the Rapid Response Team has been discussed. Patient/Family are encouraged to report perceived risks to care and to ask questions if they do not understand what they are told or what they should do.
--- NOTE | 2020-08-17 11:58 | WPDCNINT ---
Assessment and Plan Assessment and plan (1) Pericardial effusion with cardiac tamponade: Code(s): I31.3 - Pericardial effusion (noninflammatory); I31.4 - Cardiac tamponade Status: Acute Assessment and Plan: Patient presented with shortness of breath, abdominal pain, nausea, vomiting -CT chest abdomen and pelvis in the ERs on 08/17/2020 showed large pericardial effusion with tamponade physiology -patient was taken by Cardiology to photofinishing laboratory worker in a pericardiocentesis with 700 mL of bloody and serosanguineous fluid was drained. -pericardial drain in place -cardiology following closely -echocardiogram has been ordered (2) AMI (acute kidney injury): Code(s): N17.9 - Acute kidney failure, unspecified Status: Acute Assessment and Plan: Patient with acute kidney injury most likely related to decreased p.o. intake, possible hypotension due to cardiac tamponade. -patient did receive adequate IV fluids in the ER -continue to monitor renal function, electrolytes and urine output (3) Mass of right lung: Code(s): R91.8 - Other nonspecific abnormal finding of lung field Status: Acute Assessment and Plan: Patient has a mass on the right lung which was biopsied on 08/07/2020, biopsy was indeterminate/inconclusive, pathology showed diffuse pulmonary necrosis with possible tumor necrosis -will consult pulmonology and Oncology in the morning (4) Pulmonary embolism: Qualifiers: Pulmonary embolism type: single subsegmental (without acute cor pulmonale) Qualified Code(s): I26.93 - Single subsegmental pulmonary embolism without acute cor pulmonale Code(s): I26.99 - Other pulmonary embolism without acute cor pulmonale Status: Acute Assessment and Plan: CTA chest shows subsegmental PEs bilateral lower lobes with low clot burden. -discussed with Cardiology Dr. Urias regarding heparin infusion since patient has bloody pericardial effusion. He said he will be looking at the CT scans and get back to me regarding anticoagulation -patient currently on room air with good O2 sats (5) Adrenal mass, right: Code(s): E27.8 - Other specified disorders of adrenal gland Status: Acute Assessment and Plan: Right adrenal mass likely primary or metastatic disease (6) Pleural effusion: Code(s): J90 - Pleural effusion, not elsewhere classified Status: Acute Assessment and Plan: Small right pleural effusion (7) Hypertension: Code(s): I10 - Essential (primary) hypertension Status: Acute Assessment and Plan: Patient with history of hypertension, currently blood pressures have been within normal limits, will hold lisinopril for now (8) Abdominal pain: Code(s): R10.9 - Unspecified abdominal pain Status: Acute Assessment and Plan: CT scan of the abdomen and pelvis showed mild colonic wall thickening likely combination of fatty infiltration and congestive changes. This could have been related to pericardial effusion -abdominal pain, nausea vomiting has resolved after pericardiocentesis -continue to monitor Additional Plan DVT prophylaxis: SCDs Discuss with patient and her at bedside and updated them with patient's condition and plan of care. I answered all questions Code status: Full code Critical care time spent: 49 minutes This dictation may have been done utilizing a voice recognition system. Attempts have been made to correct errors. However, there may be uncorrected grammatical, spelling, and recognition errors present. Due to a high probability of clinically significant, life threatening deterioration, the patient required my highest level of preparedness to intervene emergently and I personally spent this critical care time directly and personally managing the patient. This critical care time included obtaining a history; examining the patient; pulse oximetry; ordering and review of studies; arranging
[2020-08-17 12:41] LABS: Anion Gap 10 mmol/L (8-16); Blood Urea Nitrogen 22 mg/dL (7-17); Calcium 8.4 mg/dL (8.4-10.2); Carbon Dioxide 20 mmol/L (22-30); Chloride 104 mmol/L (98-107); Estimated CRCL calculation 46 ml/min; Estimated Glomerular Filt Rate 52; Glucose 170 mg/dL (65-105); Potassium 4.9 mmol/L (3.4-5.0); Sodium 134 mmol/L (137-145)
--- NOTE | 2020-08-17 13:25 | PM.IMHP ---
H&P: HPI History of Present Illness Date/Time: 08/17/20 13:25 Chief Complaint: Shortness of breath. Narrative: This is a 50-year-old female smoker with hypertension who presented to the emergency department earlier today from home for evaluation of shortness of breath. She is a former patient of Dr. Horowitz and established care with Dr. Goodson on 07/23/2020 at which time several screening procedures were ordered to include a lung CT due to her smoking history. A 4.7 x 3.1 centimeter right upper lobe cavitary mass was noted on chest CT and a subsequent percutaneous biopsy on 08/07/2020 was inconclusive, demonstrating diffuse pulmonary necrosis with possible tumor necrosis. Several days after the biopsy she developed increasing dyspnea on exertion and was seen by the MANUGRAPHER at Dr. Goodson's office 2 days ago with complaints of shortness of breath, difficulties sleeping, and lightheadedness. A chest x-ray performed that day demonstrated cardiac silhouette enlargement which was not present on x-ray just 1 week prior and it is also noted that her blood pressure was 95/65, quite a bit lower than the 140/80 that was documented 3 weeks ago. She has since developed mild, diffuse upper abdominal cramping with nausea and she had had on average 4 episodes of emesis a day for the past 2 days. On arrival to the emergency department today she was tachycardic, tachypneic, and had soft blood pressures. A CT of the chest, abdomen, and pelvis demonstrated a new, large pericardial effusion with evidence of tamponade as well as small scattered pulmonary emboli with low clot burden as well as several other findings. She was taken emergently to the microbiology laboratory manager and is status post pericardiocentesis per Dr. Urias. Serosanguineous fluid was obtained and sent for laboratory analysis and cytology. At the time of my evaluation she is feeling quite a bit better and is much less short of breath and lightheaded. She has not had any episodes of emesis since arrival to her room and was able to hold down some Jell-O a couple of hours ago. She has not had a fever but reports chills and sweats. No weight loss and in fact she has gained about 4 to 5 pounds in the last 1 week. She denies overt orthopnea and PND bit tells me that she has been sleeping poorly because she wakes up every 45 minutes. She reports a mild, nonproductive cough for the last several days intermittent, mild chest tightness which has improved since the pericardiocentesis. No known exposure to those positive for COVID-19; she completed her vaccine series on 08/04/2020. She has no known history of malignancy and denies recent travel, exposure to tuberculosis, environmental exposures, and history of venous thromboembolism. Review of Systems Review of Systems: Narrative: Twelve systems were reviewed with pertinent positives and negatives as per HPI. Some lightheadedness but no syncope or near syncope. No pleuritic chest pain. She denies headache, sinus congestion, rhinorrhea, otalgia, and odynophagia. No dysphagia. No diarrhea or dysuria. Except as documented, all other systems were reviewed and are negative. [facility] Past Medical History Medical History (Updated 08/17/20 @ 16:27 by June Rivera PA-C) Anemia Cavitating mass in right upper lung lobe (~07/25/20) Noted on screening chest CT. Essential hypertension Tobacco abuse Reportedly quit smoking on 08/07/2020. Surgical History Surgical History (Updated 08/17/20 @ 13:34 by June Rivera PA-C) History of arthroscopic surgery of shoulder Removal of bone spurs from the AC joint. History of bunionectomy of right great toe History of dilation and curettage History of hysterectomy [place] teeth removed Family History Family History Grandparent Malignant neoplasm of prostate Grandparent Diabetes mellitus Father Acute myocardial infarction Mother Gastric disease Social History Social Histor
--- NOTE | 2020-08-17 13:40 | PC.NURSE ---
Dr. Urias notified of 500ml of drainage noted in drain bag. No new orders given.
[2020-08-17] MEDS: SODIUM CHLORIDE 0.9% IV 1,000 ML 125 ML IV CONT (13:55)
[2020-08-17 16:08] LABS: Appearance Pericardial Fluid Bloody (Clear); Color Pericardial Fluid Red (Colorless); Pericardial fluid source Pericardial fluid
[2020-08-17 16:09] LABS: Lymphocytes Pericardial Fluid 50 %; Macrophages Pericardial Fluid 28 %; Monocytes Pericardial Fluid 20 %; Neutrophils Pericardial Fluid 0 % (0-25); Other Cells Pericardial Fluid 2 %
[2020-08-18] VITALS (16 sets, daily range): BP systolic 90–129; BP diastolic 53–73; PULSE 87–103; RESP 18–26; TEMP 36.4–37.2; O2SAT 90–98
[2020-08-18 05:04] LABS: Basophils Percent Auto 0.3 % (0.2-1.2); Eosinophils Absolute Auto 0.1 K/mm3 (0-0.3); Eosinophils Percent Auto 0.3 % (0-4.4); Hematocrit 28.8 % (37.0-47.0); Hemoglobin 9.3 g/dL (12.0-15.0); Immature Granulocyte Absolute 0.08 K/mm3 (0.00-0.031); Immature Granulocyte Percent A 0.6 % (0-0.5); Lymphocytes Absolute Auto 1.86 K/mm3 (0.9-3.2); Mean Corpuscular HGB Conc 32.3 g/dl (32-36); Mean Platelet Volume 9.1 fl (7.4-10.4); Monocytes Absolute Auto 1.7 K/mm3 (0.1-0.6); Neutrophils Absolute Auto 10.6 K/mm3 (1.3-6.7); Neutrophils Percent Auto 73.8 % (45.5-73.1); Platelet Count Result 356 k/mm3 (150-375); Red Blood Count 2.91 M/mm3 (4.2-5.4); Red Cell Distribution Width 12.5 % (11.5-14.5); White Blood Count 14.4 K/mm3 (4.5-10.0)
[2020-08-18 05:34] LABS: Alanine Aminotransferase 78 U/L (4-35); Albumin Level 3.1 g/dL (3.5-5.1); Alkaline Phosphatase 65 U/L (38-126); Anion Gap 1 mmol/L (8-16); Aspartate Amino Transferase 68 U/L (14-36); Bilirubin,Total 0.2 mg/dL (0.2-1.3); Blood Urea Nitrogen 10 mg/dL (7-17); CRP 5.9 mg/dL (<1.0); Calcium 8.3 mg/dL (8.4-10.2); Carbon Dioxide 27 mmol/L (22-30); Chloride 108 mmol/L (98-107); Estimated CRCL calculation 71 ml/min; Estimated Glomerular Filt Rate > 60; Glucose 106 mg/dL (65-105); Phosphorus 2.6 mg/dL (2.5-4.5); Sodium 136 mmol/L (137-145)
--- NOTE | 2020-08-18 09:41 | WPDINTPN ---
Progress Note: A&P Assessment and Plan (1) Pericardial effusion with cardiac tamponade: Code(s): I31.3 - Pericardial effusion (noninflammatory); I31.4 - Cardiac tamponade Status: Acute Assessment and Plan: Patient presented with shortness of breath, abdominal pain, nausea, vomiting -CT chest abdomen and pelvis in the ERs on 08/17/2020 showed large pericardial effusion with tamponade physiology -patient was taken by Cardiology to laborer livestock in a pericardiocentesis with 700 mL of bloody and serosanguineous fluid was drained. -pericardial drain in place with minimal drainage, discussed with Cardiology, they will remove the drain today -cardiology following closely -echocardiogram 08/17/2020 showed LV systolic function to be normal, EF 60-65%, no LV 1 tracheal wall thickness, there i increased echogenicity of the pericardium, small pericardial effusion (2) AMI (acute kidney injury): Code(s): N17.9 - Acute kidney failure, unspecified Status: Acute Assessment and Plan: RESOLVED Patient with acute kidney injury most likely related to decreased p.o. intake, possible hypotension due to cardiac tamponade. -patient did receive adequate IV fluids in the ER -continue to monitor renal function, electrolytes and urine output (3) Mass of right lung: Code(s): R91.8 - Other nonspecific abnormal finding of lung field Status: Acute Assessment and Plan: Patient has a mass on the right lung which was biopsied on 08/07/2020, biopsy was indeterminate/inconclusive, pathology showed diffuse pulmonary necrosis with possible tumor necrosis -will consult pulmonology and Oncology (4) Pulmonary embolism: Qualifiers: Pulmonary embolism type: single subsegmental (without acute cor pulmonale) Qualified Code(s): I26.93 - Single subsegmental pulmonary embolism without acute cor pulmonale Code(s): I26.99 - Other pulmonary embolism without acute cor pulmonale Status: Acute Assessment and Plan: CTA chest shows subsegmental PEs bilateral lower lobes with low clot burden. -discussed with Cardiology Dr. Urias regarding heparin infusion since patient has bloody pericardial effusion. -patient currently on room air with good O2 sats -discuss with cardiology regarding the small subsegmental bilateral pulmonary emboli, with the pericardial drain is out will wait for 6 hours before starting heparin infusion (5) Adrenal mass, right: Code(s): E27.8 - Other specified disorders of adrenal gland Status: Acute Assessment and Plan: Right adrenal mass likely primary or metastatic disease -oncology to follow (6) Pleural effusion: Code(s): J90 - Pleural effusion, not elsewhere classified Status: Acute Assessment and Plan: Small right pleural effusion -continue to monitor (7) Hypertension: Code(s): I10 - Essential (primary) hypertension Status: Acute Assessment and Plan: Patient with history of hypertension, currently blood pressures have been within normal limits, will hold lisinopril for now (8) Abdominal pain: Code(s): R10.9 - Unspecified abdominal pain Status: Acute Assessment and Plan: CT scan of the abdomen and pelvis showed mild colonic wall thickening likely combination of fatty infiltration and congestive changes. This could have been related to pericardial effusion -abdominal pain, nausea vomiting has resolved after pericardiocentesis -continue to monitor Additional Plan DVT prophylaxis: SCDs Discuss with patient and her at bedside and updated them with patient's condition and plan of care. I answered all questions Code status: Full code Critical care time spent: 34 minutes This dictation may have been done utilizing a voice recognition system. Attempts have been made to correct errors. However, there may be uncorrected grammatical, spelling, and recognition errors present. Due to a high probabil
--- NOTE | 2020-08-18 09:52 | PM.PNCARD ---
Progress Note: A&P Assessment and Plan (1) Pericardial effusion with cardiac tamponade: Code(s): I31.3 - Pericardial effusion (noninflammatory); I31.4 - Cardiac tamponade Status: Acute Assessment and Plan: Unclear etiology. Further fluid analysis pending s/p pericardiocentesis, total of ~800 cc removed Minimal drainage from tube this am. Will remove pig tail catheter and plan repeat limited echo in am to reassess recurrence of effusion (2) Hypertension: Code(s): I10 - Essential (primary) hypertension Status: Acute Assessment and Plan: On lisinopril at home which is on hold now as BP borderline low (3) Pulmonary embolism: Qualifiers: Pulmonary embolism type: single subsegmental (without acute cor pulmonale) Qualified Code(s): I26.93 - Single subsegmental pulmonary embolism without acute cor pulmonale Code(s): I26.99 - Other pulmonary embolism without acute cor pulmonale Status: Acute Assessment and Plan: Small subsegmental PE noted on CT. Pig tail catheter was just removed from the pericardial space this am. May start Heparin in 6 hours. (4) Shortness of breath: Code(s): R06.02 - Shortness of breath Status: Acute Assessment and Plan: multifactorial, likely is due to pericardial tamponade, along with the lung lesions, and small PE. Better since pericardiocentesis Pulmonary and oncology consults are pending for possible underlying malignancy. She had inconclusive biopsy last week Subjective Date/time seen: 08/18/20 09:52 She feels better overall today. Dyspnea is much better. Continues to have some abdominal pain but that also improved. Review of Systems Constitutional: Constitutional: Reports fatigue Cardiovascular: Cardiovascular: Reports as per HPI Respiratory: Respiratory: Reports as per HPI Endocrine: Endocrine: Reports fatigue Exam Narrative: Exam Narrative: Awake alert oriented x3 not in acute distress Neck is supple JVD noted, no carotid bruit Chest: Good air entry bilaterally, lungs are clear to auscultation and percussion bilaterally Cardiovascular: Regular rate and rhythm, 2/6 systolic murmur noted left sternal border Abdomen: Soft nontender bowel sounds positive Extremities: No edema has good pulses distally bilaterally Objective Data Vital Signs Vital Signs: Vital Signs - 24 hr 08/17/20 09:58 08/17/20 10:27 08/17/20 11:49 Temperature 36.4 C L Pulse Rate 104 H 105 H 90 Respiratory Rate 31 H 27 H 23 H Blood Pressure 91/72 L 91/57 L 113/63 Pulse Oximetry 96 98 98 08/17/20 12:00 08/17/20 12:04 08/17/20 12:19 Temperature Pulse Rate 98 98 92 Respiratory Rate 25 H 25 H 27 H Blood Pressure 115/75 114/75 Pulse Oximetry 98 98 97 08/17/20 12:34 08/17/20 13:04 08/17/20 13:34 Temperature Pulse Rate 102 H 101 H 106 H Respiratory Rate 21 H 26 H 21 H Blood Pressure 112/64 106/75 101/69 Pulse Oximetry 97 99 98 08/17/20 14:00 08/17/20 16:00 08/17/20 16:21 Temperature 36.7 C Pulse Rate 102 H 108 H Respiratory Rate 25 H 32 H Blood Pressure 108/68 116/72 Pulse Oximetry 98 99 95 08/17/20 18:00 08/17/20 20:00 08/17/20 22:00 Temperature 36.8 C Pulse Rate 108 H 105 H 103 H Respiratory Rate 19 31 H 21 H Blood Pressure 114/74 118/73 110/58 L Pulse Oximetry 95 94 92 08/18/20 00:00 08/18/20 02:00 08/18/20 04:00 Temperature 36.7 C 36.6 C Pulse Rate 100 95 100 Respiratory Rate 25 H 18 26 H Blood Pressure 101/64 107/73 106/67 Pulse Oximetry 91 90 94 08/18/20 06:00 Temperature Pulse Rate 87 Respiratory Rate 19 Blood Pressure 97/53 L Pulse Oximetry 94 Intake/Output Intake/Output: Intake & Output 08/15/20 08/16/20 08/17/20 08/18/20 23:59 23:59 23:59 23:59 Intake Total 3030 250 Output Total 8623 8300 Balance 1105 -4592 Meds/Results Medications: Active Medications Generic Name Dose Route Start Last Admin Trade Name Freq PRN Reason St
--- NOTE | 2020-08-18 10:27 | PM.CNPUL ---
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 There's also a possible met to adrenal gland. - if enough cells are present to do all proper staining and any mutation/genetic testing then no further biopsies are needed. If further biopsies are needed. I would recommend starting with CT guided core biopsy of adrenal gland if accessible (2) Pericardial effusion with cardiac tamponade: Code(s): I31.3 - Pericardial effusion (noninflammatory); I31.4 - Cardiac tamponade Status: Acute (3) Pulmonary embolism: Qualifiers: Pulmonary embolism type: single subsegmental (without acute cor pulmonale) Qualified Code(s): I26.93 - Single subsegmental pulmonary embolism without acute cor pulmonale Code(s): I26.99 - Other pulmonary embolism without acute cor pulmonale Status: Acute Assessment and Plan: Given the presence of malignant pericardial effusion causing tamponade and she is at high risk for bleeding into the pericardium and causing another tamponade with anticoagulation therapy. Given the small burden risks of the left lower lobe pulmonary embolisms, one may consider an IVC filter instead of anticoagulation as an option. If anticoagulation must be started I would recommend starting unfractionated heparin so that she could be monitored closely with a a routine echocardiogram done 24-48 hours after initiation of therapy. Low molecular weight heparin and diuretic to oral anticoagulants with would carry a higher risk of recurrent hemorrhagic pericardial tamponade in this scenario. Would recommend oncology to help assess the risks versus benefits and this case History of Present Illness History of Present Illness Consult date: 08/18/20 Chief complaint: Precardiac tamponade Narrative: This is a very pleasant 50-year-old female who was admitted yesterday with shortness of breath, lightheadedness with standing up as well as chest pressure and abdominal pain for the past few days. She was found to have a large pericardial effusion with possible emerging tamponade physiology. blood pressure was 86/54 on admission. She was given IV fluids and taken for emergent pericardiocentesis with pericardial drain left in place by Cardiology. This morning the pericardial drain was removed. This lady has a right upper lobe cavitating lesion that underwent a CT-guided biopsy a few weeks ago and was inconclusive for malignancy. Viewing the CT scan myself it appears highly suspicious for primary lung carcinoma with mets to the ipsilateral mediastinum. There is also some narrowing of the right mainstem bronchus which may indicate invasion. The pericardial fluid this morning has come back for malignant cells and further staining is pending to identify the type of malignancy. I did inform the patient of the findings. She was also noted to have a left lower lobe segmental and subsegmental pulmonary embolisms But the clot burden appears to be low and are not likely causing any hemodynamic compromise. In fact this morning she says she feels much better after she had the pericardial fluid drained and her vitals are stable. She has a 15-20 pack year smoking history and was smoking up to half a pack a day but recently quit. Prior to this event she would only get short of breath with strenuous activity but denied any chest tightness, wheezing or coughing. She has never been on inhalers and denies frequent chest infections. She was otherwise healthy and only other medications were lisinopril for hypertension. She denies any decrease in appetite or weight loss and denies any hemoptysis. Family history is significant for an aunt who had breast cancer and a grandfather who had prosta
--- NOTE | 2020-08-18 13:43 | PM.IMPN ---
Progress Note: A&P Assessment and Plan (1) Pericardial effusion with cardiac tamponade: Code(s): I31.3 - Pericardial effusion (noninflammatory); I31.4 - Cardiac tamponade Status: Acute Assessment and Plan: Concerning for malignant effusion given the history and the constellation of findings noted on CT. Patient had a pericardiocentesis with removal of 700 mL of bloody fluid. Patient had a total of 450mL out overnight but output dropped off. Cardiology is managing the drain and this was removed this morning. Further management per Cardiology. (2) Pulmonary embolism: Qualifiers: Pulmonary embolism type: single subsegmental (without acute cor pulmonale) Qualified Code(s): I26.93 - Single subsegmental pulmonary embolism without acute cor pulmonale Code(s): I26.99 - Other pulmonary embolism without acute cor pulmonale Status: Acute Assessment and Plan: A few small, bilateral subsegmental pulmonary emboli were noted on CT with low clot burden. Venous Doppler ultrasounds of the lower extremities were negative for DVT. Anticoagulation on hold at this time given pericardiocentesis with bloody effusion. Appreciate Heme/Onc input. (3) Cavitating mass in right upper lung lobe: Onset Date: ~07/25/20 Code(s): J98.4 - Other disorders of lung Status: Acute Assessment and Plan: Ptient noted to have a right upper lobe cavitary mass status post biopsy on 08/07/[address] with [address] showing necrosis. Paracardial effusion showing malignant cessl probably carcinoma and suspect from the lung primary. Oncology consulted. (4) Right adrenal mass: Code(s): E27.8 - Other specified disorders of adrenal gland Status: Acute Assessment and Plan: Indeterminate 3.2 centimeter right adrenal mass noted on CT suspect metastatic. (5) Elevated LFTs: Code(s): R79.89 - Other specified abnormal findings of blood chemistry Status: Acute Assessment and Plan: LFTs were normal on labs drawn on 08/07/2020. AST/ALT mildly elevated on admission. Prominent periportal edema of the liver noted on CT today. Probably related to mild shock liver or congestion. LFTs about the same today. Follow. (6) Elevated serum creatinine: Code(s): R79.89 - Other specified abnormal findings of blood chemistry Status: Acute Assessment and Plan: Creatinine was normal on 08/07/2020. Kidneys and bladder normal on CT. Creatinine 1.3 on presentation. Possibly related to poor renal perfusion due to the tamponade. She did receive IV fluids. Creatinine has improved. Continue to monitor. (7) Hypertension: Code(s): I10 - Essential (primary) hypertension Status: Acute Assessment and Plan: Patient's blood pressure was reviewed on 08/18 Blood pressure remains soft. Lisinopril remains on hold. Monitor blood pressure closely. (8) Anemia: Code(s): D64.9 - Anemia, unspecified Status: Acute Assessment and Plan: Hemoglobin was 12.4 on 08/07/2020. Hemoglobin 9.9 on admission. Possibly related to bloody pericardial effusion. Hemoglobin today is 3. Continue to monitor. (9) Tobacco abuse: Code(s): Z72.0 - Tobacco use Status: Acute Assessment and Plan: Patient reportedly quit smoking on 08/07/2020 and she was encouraged to continue on with smoking cessation. (10) Abdominal pain: Code(s): R10.9 - Unspecified abdominal pain Status: Acute Assessment and Plan: CT shows mild colonic wall thickening. Doubt colitis. Eating normally without problems. Will continue to monitor for now Subjective Date/time seen: 08/18/20 13:43 Interval history: 50yo female with known RUL cavitary mass, HTN and tobacco abuse here for SOB and chest pain. Patient states she feels much better. No CP but some discomfort at the old drain site. She had the pericardial drain removed ea
--- NOTE | 2020-08-18 17:57 | PDONCCN ---
HPI - Date of Consult Date/Time: 08/18/20 17:57 Requesting Physician: Junior Huerta MD Primary Care Provider: John Goodson, DO - Consult Narrative Reason for consult: Likely lung cancer. Narrative: Elaina Mora is a 50 year old female with history of hypertension came into the hospital with worsening of shortness of breath. Patient has a history of smoking for more than 40 years duration. She had CT scan done for screening that showed 4.7 x 3.1 cm right upper lobe cavitary mass. She had biopsy performed on August 07, 2020 that came back inconclusive with possible tumor necrosis. After her biopsy she developed worsening of her shortness of breath along with lightheadedness and dizziness. Chest x-ray was performed that showed cardiac silhouette enlargement. CT chest abdomen and pelvis was performed that showed large pericardial effusion with evidence of tamponade. CT scan also showed 3.2 cm right adrenal mass as well as few small pulmonary emboli with low clot burden in subsegmental pulmonary arteries of bilateral lower lobes. Patient had pericardiocentesis performed with removal of 700 cc of serosanguineous fluid. Pathology showed malignant cell probable carcinoma. Clinically she is feeling better after pericardiocentesis. She denies any weight loss in fact she has gained weight. Denies any hemoptysis. Denies any headache and bone pain. Review of Systems - Review of Systems All systems reviewed & are unremarkable except as noted in [facility] and [facility] Medical History: Medical History (Last Updated 08/17/20 @ 16:08 by June Rivera PA-C) Anemia Cavitating mass in right upper lung lobe Onset Date: ~07/25/20 Noted on screening chest CT. Essential hypertension Tobacco abuse Reportedly quit smoking on 08/07/2020. Surgical History: Surgical History (Last Updated 08/17/20 @ 13:34 by June Rivera PA-C) History of arthroscopic surgery of shoulder Removal of bone spurs from the AC joint. History of bunionectomy of right great toe History of dilation and curettage History of hysterectomy Blanchard teeth removed Family History: Family History (Last Reviewed 08/17/20 @ 13:34 by June Rivera PA-C) Grandparent Malignant neoplasm of prostate Grandparent Diabetes mellitus Father Acute myocardial infarction Mother Gastric disease - Social History Social History: Social History (Last Updated 08/17/20 @ 13:34 by June Rivera PA-C) Gender Identity: Gender identity (if verbalized by the patient): Female Alcohol Use: Alcohol intake: current Drinks per week: 5 Substance Use: Substance use: never Others: Spiritual care concerns: No Smoking Status: Smoking status: Former smoker Tobacco type: cigarettes Second hand tobacco smoke exposure: No Smoking end date: 06/30/20 Approximate Smoking End Date: 06/30/20 Smoking Pack-years: Smoking packs per day: 1 Smoking cigarettes per day: 20.0 Years smoked: 30 Smoking pack-years: 30.00 Meds Home Medications Medication Instructions Recorded Confirmed Type lisinopril 10 mg tablet 10 mg PO DAILY 07/23/20 08/17/20 History Allergies Allergy/AdvReac Type Severity Reaction Status Date / Time amoxicillin Allergy Intermediate Blister Verified 08/17/20 08:14 Results - Labs CBC & Chem 7: 08/18/20 04:28 08/18/20 04:28 Labs: Short CBC 08/18/20 Range/Units 04:28 WBC 14.4 H (4.5-10.0) K/mm3 Hgb 9.3 L (12.0-15.0) g/dL Hct 28.8 L (37.0-47.0) % Plt Count 356 (150-375) k/mm3 BMP 08/18/20 04:28 Sodium 136 L Potassium 4.0 Chloride 108 H Carbon Dioxide 27 BUN 10 D Creatinine 0.70 Glucose 106 H Calcium 8.3 L Liver Function 08/18/20 Range/Units 04:28 Total Bilirubin 0.2 (0.2-1.3) mg/dL AST 68 H (14-36) U/L ALT 78 H (4-35) U/L Alkaline Phosphatase 65 (38-126) U/L Albumin 3.1 L (3.5
[2020-08-18 18:01] LABS: Basophils Absolute Auto 0.1 K/mm3 (0.0-0.1); Basophils Percent Auto 0.4 % (0.2-1.2); Eosinophils Absolute Auto 0.1 K/mm3 (0-0.3); Hematocrit 32.9 % (37.0-47.0); Hemoglobin 10.5 g/dL (12.0-15.0); Immature Granulocyte Absolute 0.07 K/mm3 (0.00-0.031); Immature Granulocyte Percent A 0.5 % (0-0.5); Lymphocytes Absolute Auto 2.28 K/mm3 (0.9-3.2); Lymphocytes Percent Auto 16.1 % (18.3-44.2); Mean Corpuscular HGB Conc 31.9 g/dl (32-36); Mean Corpuscular Volume 100.3 fl (80-100); Mean Platelet Volume 9.1 fl (7.4-10.4); Monocytes Absolute Auto 1.5 K/mm3 (0.1-0.6); Monocytes Percent Auto 10.2 % (2.6-8.5); Neutrophils Absolute Auto 10.2 K/mm3 (1.3-6.7); Neutrophils Percent Auto 71.8 % (45.5-73.1); Nucleated Red Blood Cells Perc 0.1 % (0.0-0.2); Platelet Count Result 356 k/mm3 (150-375); Red Blood Count 3.28 M/mm3 (4.2-5.4); Red Cell Distribution Width 12.4 % (11.5-14.5); White Blood Count 14.2 K/mm3 (4.5-10.0)
[2020-08-18 18:10] LABS: INR 1.1; Prothrombin Time 14.4 Seconds (11.1-14.7)
--- NOTE | 2020-08-18 18:29 | PC.NURSE ---
This patient, Elaina Mora, was received from [ ICU-9 ] on 08/18/20 at 1820. Patient/family oriented to unit policies and routines
--- NOTE | 2020-08-18 18:55 | PC.NURSE ---
This patient, Elaina Mora, was transferred to [facility] on 08/18/20 at 1820. Personal belongings sent with patient. Report given to Ezekiel Queen RN. Appropriate documentation sent with patient.
[2020-08-19] VITALS (9 sets, daily range): BP systolic 104–116; BP diastolic 58–65; PULSE 67–101; RESP 20; TEMP 36.5–36.6; O2SAT 96–97
[2020-08-19 05:04] LABS: Basophils Absolute Auto 0.1 K/mm3 (0.0-0.1); Basophils Percent Auto 0.4 % (0.2-1.2); Eosinophils Absolute Auto 0.3 K/mm3 (0-0.3); Eosinophils Percent Auto 2.1 % (0-4.4); Hematocrit 28.4 % (37.0-47.0); Hemoglobin 9.3 g/dL (12.0-15.0); Immature Granulocyte Absolute 0.05 K/mm3 (0.00-0.031); Immature Granulocyte Percent A 0.4 % (0-0.5); Lymphocytes Absolute Auto 2.37 K/mm3 (0.9-3.2); Lymphocytes Percent Auto 20.2 % (18.3-44.2); Mean Corpuscular HGB Conc 32.7 g/dl (32-36); Mean Corpuscular Volume 97.6 fl (80-100); Mean Platelet Volume 9.2 fl (7.4-10.4); Monocytes Absolute Auto 1.4 K/mm3 (0.1-0.6); Monocytes Percent Auto 12.1 % (2.6-8.5); Neutrophils Absolute Auto 7.6 K/mm3 (1.3-6.7); Neutrophils Percent Auto 64.8 % (45.5-73.1); Platelet Count Result 333 k/mm3 (150-375); Red Blood Count 2.91 M/mm3 (4.2-5.4); Red Cell Distribution Width 12.2 % (11.5-14.5); White Blood Count 11.8 K/mm3 (4.5-10.0)
[2020-08-19 05:09] LABS: Alanine Aminotransferase 66 U/L (4-35); Albumin Level 2.9 g/dL (3.5-5.1); Alkaline Phosphatase 62 U/L (38-126); Anion Gap 2 mmol/L (8-16); Aspartate Amino Transferase 56 U/L (14-36); Bilirubin,Total 0.1 mg/dL (0.2-1.3); Blood Urea Nitrogen 8 mg/dL (7-17); Calcium 7.9 mg/dL (8.4-10.2); Carbon Dioxide 29 mmol/L (22-30); Chloride 105 mmol/L (98-107); Estimated CRCL calculation 81 ml/min; Estimated Glomerular Filt Rate > 60; Glucose 92 mg/dL (65-105); Potassium 3.6 mmol/L (3.4-5.0); Sodium 136 mmol/L (137-145)
--- NOTE | 2020-08-19 08:00 | ECHOL_ITS ---
Patient Info Name: Elaina Mora Age: 50 years : 1970 Gender: Female Ht: 64 in Wt: 142 lbs BSA: 1.72 m2 HR: 86 bpm BP: 104 / 63 mmHg Technical Quality: Good Exam Date: 08/19/2020 8:34 AM Exam Location: [facility] Pulmonary Patient Status: Inpatient Admit Date: 08/17/2020 Staff Ordering Physician: Yelena Her MD (nicki/snow) Cigar Head Holer: Mitchell Lucio, RDCS, RT Attending Provider: Vance Grant MD Exam Type: CA echo limited Study Info Indications I31.3 - Pericardial effusion (noninflammatory) Limited two-dimensional transthoracic echocardiogram is performed. Summary 1. Left ventricular systolic function is normal, estimated at 65-70%. 2. There is small pericardial effusion. Left Ventricle Left ventricular chamber dimension is normal. Left ventricular systolic function is normal, estimated at 65-70%. There is no increased left ventricular wall thickness. Left ventricular septal wall motion is normal. The left ventricular diastolic function is normal. Right Ventricle Right ventricular chamber dimension is normal. Right ventricular systolic function is normal. Left Atria Left atrial chamber dimension is normal. Right Atria Right atrial chamber dimension is normal. Aortic Valve The aortic valve is trileaflet. There is no aortic valve sclerosis. There is no aortic valve stenosis. There is no aortic valve regurgitation. Pulmonic Valve The pulmonic valve is normal. There is no pulmonic valve stenosis. There is no pulmonic regurgitation. Mitral Valve The mitral valve has normal leaflets. There is no mitral valve stenosis. There is no mitral valve regurgitation. Tricuspid Valve The tricuspid valve leaflets are normal. There is no significant tricuspid valve stenosis. There is no tricuspid valve regurgitation. Pericardium/Pleural The pericardium appears thickened pericardium. There is small pericardial effusion. Aorta The aortic root size at the sinus of Valsalva is normal. The prox ascending aorta size is normal. Report Signatures
--- NOTE | 2020-08-19 09:46 | PM.PNCARD ---
Progress Note: A&P Assessment and Plan (1) Pericardial effusion with cardiac tamponade: Code(s): I31.3 - Pericardial effusion (noninflammatory); I31.4 - Cardiac tamponade Status: Acute Assessment and Plan: Malignant effusion,echocardiogram done today at the bedside showed small pericardial effusion, and significant pericardial linear densities suggestive of fibrinous tissue, but no evidence of tamponade and no significant recurrence of large effusion s/p pericardiocentesis, total of ~800 cc removed will need to repeat echo in about a week or so to consider pericardial window in case there is significant effusion at that time. For the time being no immediate indication for pericardial window, she is okay to be discharged home from cardiac standpoint to have a follow-up in our office in 1 week and repeated echo at that time, to consider referral for pericardial window if there is significant effusion at that time (2) Hypertension: Code(s): I10 - Essential (primary) hypertension Status: Acute Assessment and Plan: On lisinopril at home which is on hold now as BP borderline low (3) Pulmonary embolism: Qualifiers: Pulmonary embolism type: single subsegmental (without acute cor pulmonale) Qualified Code(s): I26.93 - Single subsegmental pulmonary embolism without acute cor pulmonale Code(s): I26.99 - Other pulmonary embolism without acute cor pulmonale Status: Acute Assessment and Plan: Small subsegmental PE noted on CT. the risk of bleeding from anticoagulation due to hemorrhagic effusion is more than the benefit of anticoagulation for the small PE, will continue to watch closely now since her venous Doppler showed no DVT (4) Shortness of breath: Code(s): R06.02 - Shortness of breath Status: Acute Assessment and Plan: multifactorial, likely is due to pericardial tamponade, along with the lung lesions, and small PE. Better since pericardiocentesis Pulmonary and oncology consults are pending for possible underlying malignancy. Subjective Date/time seen: 08/19/20 09:46 She feels well today, no chest pain no shortness of breath, feeling fairly well overall, cytology from effusion showed malignant cells Exam Narrative: Exam Narrative: Awake alert oriented x3 not in acute distress Neck is supple JVD noted, no carotid bruit Chest: Good air entry bilaterally, lungs are clear to auscultation and percussion bilaterally Cardiovascular: Regular rate and rhythm, 2/6 systolic murmur noted left sternal border Abdomen: Soft nontender bowel sounds positive Extremities: No edema has good pulses distally bilaterally Objective Data Vital Signs Vital Signs: Vital Signs - 24 hr 08/18/20 10:00 08/18/20 10:14 08/18/20 12:00 Temperature 36.7 C Pulse Rate 103 H 99 92 Respiratory Rate 22 H 18 20 Blood Pressure 105/71 91/55 L Pulse Oximetry 95 95 94 08/18/20 14:00 08/18/20 16:00 08/18/20 18:00 Temperature 36.9 C Pulse Rate 98 96 101 H Respiratory Rate 18 Blood Pressure 101/64 Pulse Oximetry 95 08/18/20 18:33 08/18/20 20:00 08/18/20 22:00 Temperature 37.2 C 36.4 C Pulse Rate 98 99 88 Respiratory Rate 22 H 18 Blood Pressure 110/64 129/70 Pulse Oximetry 96 95 08/18/20 23:10 08/18/20 23:27 08/19/20 00:00 Temperature 36.7 C Pulse Rate 96 101 H Respiratory Rate 18 Blood Pressure 113/70 Pulse Oximetry 96 95 08/19/20 02:00 08/19/20 04:00 08/19/20 06:00 Temperature 36.6 C Pulse Rate 67 95 85 Respiratory Rate 20 Blood Pressure 104/63 Pulse Oximetry 96 08/19/20 07:54 08/19/20 08:00 Temperature 36.6 C Pulse Rate 85 85 Respiratory Rate 20 Blood Pressure 114/65 Pulse Oximetry 96 Intake/Output Intake/Output: Intake & Output 08/16/20 08/17/20 08/18/20 08/19/20 23:59 23:59 23:59 23:59 Intake Total 3030 1510 500 Output Total 9041 7425 1000 Balance 1105 -1015 -500 Meds/Results
--- NOTE | 2020-08-19 10:12 | PM.PNPUL ---
Progress Note: A&P Assessment and Plan (1) Emphysema lung: Code(s): J43.9 - Emphysema, unspecified Status: Acute Assessment and Plan: Will order outpatient pulmonary function test and follow up with us in [facility]monary [facility] in about 4 weeks. No need for bronchodilator therapy at this stage. (2) Pericardial effusion with cardiac tamponade: Code(s): I31.3 - Pericardial effusion (noninflammatory); I31.4 - Cardiac tamponade Status: Acute (3) Mass of right lung: Code(s): R91.8 - Other nonspecific abnormal finding of lung field Status: Acute (4) Pulmonary embolism: Qualifiers: Pulmonary embolism type: single subsegmental (without acute cor pulmonale) Qualified Code(s): I26.93 - Single subsegmental pulmonary embolism without acute cor pulmonale Code(s): I26.99 - Other pulmonary embolism without acute cor pulmonale Status: Acute Assessment and Plan: The risks and benefits of mcc anticoagulation needs to be weighed carefully in the setting of her pulmonary embolism induced by active malignancy versus the possibility of recurrent hemorrhagic pericardial effusion. Appreciate Dr. Desai's input on this matter. I will leave that in has hands to determine Subjective Date/time seen: 08/19/20 10:12 Interval history: She is doing well and her vitals are stable. Still awaiting on complete analysis of pleural fluid. Metastatic non-small cell lung cancer is highly suspected. She does have mild emphysematous changes on her CT scan but not much in the way of symptoms for COPD. Review of Systems Review of Systems: All systems reviewed & are unremarkable except as noted in HPI and below Exam Const: General: cooperative, healthy appearing, comfortable, no acute distress, well developed, alert and awake Nutritional Appearance: average body habitus and well nourished Orientation/consciousness: oriented to person, oriented to place, oriented to time and patient oriented x3 Limitations: no limitations HENMT: Head: normal to inspection and normocephalic Eyes: General: appearance normal, both eyes and all related structures Neck: Neck: normal visual inspection, trachea midline and supple Resp: Effort & Inspection: normal respiratory effort and able to speak in complete sentences Auscultation: clear to auscultation bilaterally Cardio: Jugular venous distension: no JVD Rate: regular rate Rhythm: regular rhythm Heart sounds: S1 normal heart sound present, S2 normal heart sound present and no rubs GI: Inspection: normal to inspection Auscultation: normal bowel sounds Skin: General skin exam: normal color and no rashes or lesions noted Neuro: General: oriented to person, oriented to place, oriented to time and patient oriented x3 Cognition (Neuro): normal cognition Speech: normal speech Extrem: General: normal to inspection Psych: Appearance: grossly normal and well kempt Mental Status: mental status grossly normal Objective Data Vital Signs Vital Signs: Vital Signs - 24 hr 08/18/20 10:14 08/18/20 12:00 08/18/20 14:00 Temperature 36.7 C Pulse Rate 99 92 98 Respiratory Rate 18 20 Blood Pressure 91/55 L Pulse Oximetry 95 94 08/18/20 16:00 08/18/20 18:00 08/18/20 18:33 Temperature 36.9 C 37.2 C Pulse Rate 96 101 H 98 Respiratory Rate 18 22 H Blood Pressure 101/64 110/64 Pulse Oximetry 95 96 08/18/20 20:00 08/18/20 22:00 08/18/20 23:10 Temperature 36.4 C Pulse Rate 99 88 Respiratory Rate 18 Blood Pressure 129/70 Pulse Oximetry 95 96 08/18/20 23:27 08/19/20 00:00 08/19/20 02:00 Temperature 36.7 C Pulse Rate 96 101 H 67 Respiratory Rate 18 Blood Pressure 113/70 Pulse Oximetry 95 08/19/20 04:00 08/19/20 06:00 08/19/20 07:54 Temperature 36.6 C 36.6 C Pulse Rate 95 85 85 Respiratory Rate 20 20 Blood Pressure 104/63 114/65 Pulse Oximetry 96 96 08/19/20 08:00 Temperature Pulse Rate 85 R
--- NOTE | 2020-08-19 13:06 | WPDONCPN ---
Progress Note: A/P - Additional Plan Metastatic non-small cell lung cancer adenocarcinoma in histology is status post pericardial centesis. I have discussed this pathology report with Dr. Brand .I have ordered molecular marker for non-small cell lung cancer. I will recommend MediPort placement. Patient will receive chemotherapy in my office. I provided her my office information. Pericardial effusion. Not status post pericardiocentesis. Cardiology will follow-up as an outpatient for repeat echocardiogram and possible pericardial window if needed. Pulmonary embolism. Clot burden was small. Anticoagulation will be on hold due to risk of her bleeding. We will manage this as an outpatient in my office. - Time Spent With Patient Total time spent is greater than 50% in coordination of care (as documented) at patient's floor/unit and/or counseling patient: 15 - 25 minutes Subjective Interval history: Metastatic non-small cell lung cancer Review of Systems - Review of Systems Patient is feeling much better. Denies any chest pain and shortness of breath. Denies any bleeding. No other new complaints today. Exam Vital signs: Temp Pulse Resp BP Pulse Ox 36.5 C 95 20 116/58 L 96 08/19/20 12:00 08/19/20 12:00 08/19/20 12:00 08/19/20 12:00 08/19/20 12:00 Narrative: Lungs are clear to auscultation bilaterally Cardiovascular regular rate rhythm no murmurs Abdomen soft nontender nondistended Extremities no edema PN: Objective Data - Labs CBC & Chem 7: 08/19/20 04:15 08/19/20 04:15 Labs: Laboratory Results - last 24 hr 08/18/20 08/18/20 08/19/20 17:50 17:50 04:15 WBC 14.2 H 11.8 H RBC 3.28 L 2.91 L Hgb 10.5 L 9.3 L Hct 32.9 L 28.4 L MCV 100.3 H 97.6 MCH 32.0 32.0 MCHC 31.9 L 32.7 RDW 12.4 12.2 Plt Count 356 333 MPV 9.1 9.2 Immature Gran % (Auto) 0.5 0.4 Neut % (Auto) 71.8 64.8 Lymph % (Auto) 16.1 L 20.2 [place] % (Auto) 10.2 H 12.1 H Eos % (Auto) 1.0 2.1 Baso % (Auto) 0.4 0.4 Lymph # (Auto) 2.28 2.37 [place] # (Auto) 1.5 H 1.4 H Eos # (Auto) 0.1 0.3 Baso # (Auto) 0.1 0.1 Abs Immat Gran (auto) 0.07 H 0.05 H Absolute Neuts (auto) 10.2 H 7.6 H Absolute Nucleated RBC 0.0 0.0 Nucleated RBC % 0.1 0.0 PT 14.4 INR 1.1 Sodium Potassium Chloride Carbon Dioxide Anion Gap BUN Creatinine Estim Creat Clear Calc Estimated GFR Glucose Calcium Total Bilirubin AST ALT Alkaline Phosphatase Total Protein Albumin 08/19/20 04:15 WBC RBC Hgb Hct MCV MCH MCHC RDW Plt Count MPV Immature Gran % (Auto) Neut % (Auto) Lymph % (Auto) [place] % (Auto) Eos % (Auto) Baso % (Auto) Lymph # (Auto) [place] # (Auto) Eos # (Auto) Baso # (Auto) Abs Immat Gran (auto) Absolute Neuts (auto) Absolute Nucleated RBC Nucleated RBC % PT INR Sodium 136 L Potassium 3.6 Chloride 105 Carbon Dioxide 29 Anion Gap 2 L BUN 8 Creatinine 0.60 L Estim Creat Clear Calc 81 Estimated GFR > 60 Glucose 92 Calcium 7.9 L Total Bilirubin 0.1 L AST 56 H ALT 66 H Alkaline Phosphatase 62 Total Protein 6.0 L Albumin 2.9 L
--- NOTE | 2020-08-19 14:56 | PM.DS ---
DS: Admitting Diagnosis Admitting Diagnosis Admitting Diagnosis: lung mass DS: Discharge Diagnosis Discharge Diagnosis (1) Emphysema lung: Code(s): J43.9 - Emphysema, unspecified Status: Acute (2) Right adrenal mass: Code(s): E27.8 - Other specified disorders of adrenal gland Status: Acute (3) Cavitating mass in right upper lung lobe: Onset Date: ~07/25/20 Code(s): J98.4 - Other disorders of lung Status: Acute (4) Tobacco abuse: Code(s): Z72.0 - Tobacco use Status: Acute (5) Pulmonary embolism: Qualifiers: Pulmonary embolism type: single subsegmental (without acute cor pulmonale) Qualified Code(s): I26.93 - Single subsegmental pulmonary embolism without acute cor pulmonale Code(s): I26.99 - Other pulmonary embolism without acute cor pulmonale Status: Acute (6) Pericardial effusion with cardiac tamponade: Code(s): I31.3 - Pericardial effusion (noninflammatory); I31.4 - Cardiac tamponade Status: Acute (7) AMI (acute kidney injury): Code(s): N17.9 - Acute kidney failure, unspecified Status: Acute DS: Summary Hospital Course Reason for hospitalization: Pulmonary embolism Hospital Course: # Pericardial effusion with cardiac tamponade: s/p pericardiocentesis with removal of 700 ml bloody fluid. drain has been remvoed by cardiology 08/18. repeat limited echo 08/19 with minimal fluid. the pericarial fluid came back positive for malignant cells, likely of lung origin. further determiantion in process. plan is to repeat echo in 1 week to evaluate for reaccumulation and if needed pericardial window will be planned. # Pulmoanry embolism: A few small, bilateral subsegmental pulmonary emboli were noted on CT with low clot burden. Venous Doppler ultrasounds of the lower extremities were negative for DVT. Anticoagulation on hold at this time given pericardiocentesis with bloody effusion. Appreciate Heme/Onc input. hold off on anticoagulation per all the team members due to high risk for bleeding at this point. she will likely need to be on anticoagulation down the line. disucsed this with the patient as well. PE likely from malignancy related. # Metastaic lung cancer: patient noted to avhe right upper lobe cavitary mass s/p biospy on 08/07/[address] showing necrosis. pericardial efffusion showing malignant cells probalby carcinoma with lung primary. oncology consulted. plans for port placement and chemotherapy as op basis. shcedul for port placement obtained. # Right adrenal mass: indeterminate 3.2 cm suspicious for metastasis. # Elevated LFTS: mildly elevaetd AST/ALT mildly elevated on admission. Prominent periportal edema of the liver noted on CT . Probably related to mild shock liver or congestion. LFTs about the same today. Follow. # MAI: resovled. # Hypertension: BP meds on hold. will contineu to hold at [place] [facility]. fuwith PCP in 1 week for evaluation. # ANemia: hb on 08/07/2020 at 12.4. hb 9.9 on admission. possibly from bloody pericaridal effusion. hb stable. continue to mointor as opb asi. # tobacco abuse Status at Discharge Functional status at discharge: independent ambulation Overall status at discharge: patient is back to baseline Time Spent with Patient Time attestation: Total time spent providing and/or coordinating discharge services:45 mins Time spent: Greater than 30 minutes Exam Narrative: Exam Narrative: Gen - NARD sitting up in chair Chest -no respiratory distress, clear to auscultation. Normal respiratory rate. CV - RRR S1/S2. Abd - Soft, NT/ND, Positive BS Ext - No pedal edema. 2+ DP pulses bilaterally Neuro - Alert and oriented. Nonfocal exam. Psych - Nml mood and affect Skin - Warm and dry DS: Data Data Completed and Pending Pending studies at discharge: Pending at discharge 08/17/20 13:42 Cytology [PTH] Routine Labs on day of discharge: Labs from last 24 hours 08/19/20 08/19/20
--- NOTE | 2020-08-19 16:01 | PM.CNGS ---
Assessment and Plan Assessment and plan (1) Cavitating mass in right upper lung lobe: Onset Date: ~07/25/20 Code(s): J98.4 - Other disorders of lung Status: Acute Assessment and Plan: Oncology following and feels this is likely metastatic non-small cell lung cancer. They have requested Port-A-Cath placement by our service. Due to her recent cardiac events, we would like cardiac clearance and her follow-up with the glass checker prior to proceeding with Port-A-Cath placement. Description of the procedure, risks, benefits, expected outcomes, and expected recovery were discussed with the patient in detail. All questions were answered. The patient is scheduled to follow-up with her glass checker on Tuesday, in 3 days. We will coordinate proceeding with outpatient surgery after receiving clearance. Thank you for allowing us to see the patient in consultation. Okay to discharge her today from our standpoint. (2) Adrenal mass, right: Code(s): E27.8 - Other specified disorders of adrenal gland Status: Acute (3) Pericardial effusion with cardiac tamponade: Code(s): I31.3 - Pericardial effusion (noninflammatory); I31.4 - Cardiac tamponade Status: Acute (4) Hypertension: Code(s): I10 - Essential (primary) hypertension Status: Acute (5) Pulmonary embolism: Qualifiers: Pulmonary embolism type: single subsegmental (without acute cor pulmonale) Qualified Code(s): I26.93 - Single subsegmental pulmonary embolism without acute cor pulmonale Code(s): I26.99 - Other pulmonary embolism without acute cor pulmonale Status: Acute Additional Plan I have discussed the patient's case and plan of care with Dr. Landon. History of Present Illness Consult details Consult date: 08/19/20 Reason for consult: other (Port-A-Cath placement) Requesting physician: Arthur Desai MD Narrative: This is a 50-year-old female who came into the emergency department with complaints of shortness of breath and chest pain. She was found to have a large pericardial effusion with tamponade. She underwent pericardiocentesis on 08/17/2020 with 800 mL of fluid drained and pericardial drain in place. She also presented with acute kidney injury. She was treated in ICU and pericardial drain was removed on 08/18/2020. She had a CTA of the chest, abdomen, and pelvis which showed a few small pulmonary emboli with low clot burden, a right upper lobe mass concerning for malignancy with suspicion for confluent metastatic lymphadenopathy at the right hilum and adjacent mediastinum, new small right pleural effusion, indeterminate 3.2 cm right adrenal mass, mild emphysema, mild colonic wall thickening, and diverticulosis. Decision was made to defer anticoagulation at this time due to risk of bleeding with a hemorrhagic effusion versus benefits of anticoagulating for the small PE. She had a CT-guided core biopsy of a right upper lobe lung mass on 08/07/2020 that showed diffuse pulmonary necrosis with possible tumor necrosis, but tissue was insufficient for further diagnosis. Pericardial fluid was sent for pathology and cytology, which showed malignant cells, probable carcinoma. Flow cytometry and cytologic examination pending. Oncology was consulted and has evaluated the patient. They would like to start chemotherapy as an outpatient. They have consulted our service for Port-A-Cath placement. Oncology would like this done as soon as possible, but feels this can be done as an outpatient. The patient is now seen in the IMU. Review of Systems Review of Systems: All systems reviewed & are unremarkable except as noted in HPI and below Constitutional: Constitutional: Reports as per HPI, Denies chills, Denies fatigue and Denies fever(s) Eyes: Eyes: Denies change in vision ENT: Reports Normal hearing present Cardiovascular: Cardiovascular: Denies chest pain, Denies leg edema and Denies dyspnea Respiratory:
[2020-08-23 13:07] LABS: Glucose Pleural Fluid <10 mg/dL
== END 2020-08-19 15:45 | disposition home or self-care (01) | DRG 314 ==
LOC: ANHED 10:31 → ANHICU 12:30 → ANHIMU 08-19 07:35 → ANHICU 08-21 09:55 → ANHIMU 08-21 09:55
PROVIDERS: Internal Medicine; Radiology Diagnostic Radiology; Specialist; Admitting Provider Family Medicine; Emergency Provider Emergency Medicine; PCP Internal Medicine; Visit Provider Internal Medicine
PROC: 0W9D3ZX Drainage of Pericardial Cavity, Percutaneous Approach, Diagnostic (ICD-10-PCS; CPT 33016; principal; 2020-08-17 10:20)
DX: I31.3 Pericardial effusion (noninflammatory) (principal); I26.94 Multiple subsegmental thrombotic pulmonary emboli without acute cor pulmonale; C34.11 Malignant neoplasm of upper lobe, right bronchus or lung; C79.89 Secondary malignant neoplasm of other specified sites; C79.71 Secondary malignant neoplasm of right adrenal gland; J90 Pleural effusion, not elsewhere classified; N17.9 Acute kidney failure, unspecified; I31.4 Cardiac tamponade; R10.9 Unspecified abdominal pain; J43.9 Emphysema, unspecified; D64.9 Anemia, unspecified; I10 Essential (primary) hypertension; R91.8 Other nonspecific abnormal finding of lung field; Z90.710 Acquired absence of both cervix and uterus; Z87.891 Personal history of nicotine dependence
CPT/HCPCS: 33016; 36415; 71045; 71046; 71275; 74177; 80048; 80053; 81001; 82150; 82945; 83605; 83615; 83690; 83735; 83880; 84100; 84155; 84157; 85025; 85610; 85730; 86140; 87040; 87070; 87075; 87205; 87804; 88104; 88108; 88184; 88185; 88305; 88313; 88321; 88342; 89051; 93005; 93306; 93308; 93970; 96361; 96374; 96375; 99291; J0131; J1170; J1644; J2405; J3010; J7030; J7040; Q9967

== ENCOUNTER → 2020-08-23 00:47 | Outpatient (CLI) | payer BC, SELFPAY ==
[2020-08-23 20:54] LABS: SARS-CoV-2 RNA PCR Negative
== END ==
PROVIDERS: PCP Internal Medicine; Visit Provider Surgery
DX: Z01.812 Encounter for preprocedural laboratory examination (principal); Z20.822 Contact with and (suspected) exposure to COVID-19
CPT/HCPCS: C9803; U0003; U0005

== ENCOUNTER 2020-08-27 00:56 | Day surgery (SDC) | payer BC, SELFPAY ==
[2020-08-22 08:31] VITALS: BMI 23.3
--- NOTE | 2020-08-26 14:38 | WPDANESEPPF ---
Anes - Initial Pre Proc Eval Procedure: Operation Date: 08/27/20 13:30 Proposed Procedures p Insertion Leann Cath - Ashwin Landon MD <Dimas Vasquez MD - Last Filed: 08/28/20 16:13> Date/Time: 08/26/20 14:38 <Dimas Vasquez MD - Last Filed: 08/28/20 16:13> Surgeon: Ashwin Landon MD <Dimas Vasquez MD - Last Filed: 08/28/20 16:13> Pre Op Diagnosis: lung CA <Dimas Vasquez MD - Last Filed: 08/28/20 16:13> Patient Data Age: 50 Gender: F Height: 1.63 m Weight: 61.7 kg <Dimas Vasquez MD - Last Filed: 08/28/20 16:13> Allergies Allergy/AdvReac Type Severity Reaction Status Date / Time amoxicillin AdvReac Intermediate Blister on Verified 08/27/20 11:32 palms of hands <Dimas Vasquez MD - Last Filed: 08/28/20 16:13> Home Medications Medication Instructions Recorded Confirmed Type acetaminophen-codeine 1 tablet PO Q6H PRN #10 tablet 08/27/20 Rx <Dimas Vasquez MD - Last Filed: 08/28/20 16:13> Patient hx anesthesia problems: none <Collin Diehl DO - Last Filed: 08/27/20 12:54> Family hx anesthesia problems: none <Collin Diehl DO - Last Filed: 08/27/20 12:54> [facility] Past Medical History Medical History: Medical History (Updated 08/27/20 @ 14:26 by Ashwin Landon MD) Anemia Cavitating mass in right upper lung lobe (~07/25/20) Noted on screening chest CT. Elevated LFTs Emphysema lung Essential hypertension Metastatic non-small cell lung cancer Pericardial effusion with cardiac tamponade effusion drained on 08/17/20 Pulmonary embolism Right adrenal mass Tobacco abuse Reportedly quit smoking on 08/07/2020. <Dimas Vasquez MD - Last Filed: 08/28/20 16:13> Surgical History Surgical History: Surgical History History of arthroscopic surgery of shoulder Removal of bone spurs from the AC joint. History of bunionectomy of right great toe History of dilation and curettage History of hysterectomy [place] teeth removed <Dimas Vasquez MD - Last Filed: 08/28/20 16:13> Family History Family History: Family History Grandparent Malignant neoplasm of prostate Grandparent Diabetes mellitus Father Acute myocardial infarction Mother Gastric disease <Dimas Vasquez MD - Last Filed: 08/28/20 16:13> Social History Social History: Social History Social History: Surrogate decision maker: Yosef Morgan, . Code status: Full code. Smoking packs per day: 1 Smoking cigarettes per day: 20.0 Years smoked: 30 Smoking pack-years: 30.00 Smoking status: Former smoker Tobacco type: cigarettes Second hand tobacco smoke exposure: No Smoking end date: 06/30/20 Alcohol intake: current Drinks per week: 5 Substance use: never Substance use type: does not use Living arrangements: with family Additional living arrangements comments: Patient is and lives with her and 2 children in [place]. Additional occupation/education comments: Works for [employer]. Gender identity (if verbalized by the patient): Female Spiritual care concerns: No <Dimas Vasquez MD - Last Filed: 08/28/20 16:13> Anes - Eval Final PreProcedure Day of Procedure 08/26/20 14:38 <Dimas Vasquez MD - Last Filed: 08/28/20 16:13> Patient weight: normal <Dimas Vasquez MD - Last Filed: 08/28/20 16:13> Heart: regular rate and rhythm <Dimas Vasquez MD - Last Filed: 08/28/20 16:13> Lungs: clear to auscultation and normal air movement <Dimas Vasquez MD - Last Filed: 08/28/20 16:13> Airway: Mallampati scale class II <Dimas Vasquez MD - Last Filed: 08/28/20 16:13> Neurological: alert and oriented <Dimas Vasquez MD
--- NOTE | ~2020-08-27 | XR_ITS ---
XR fl guide central line place 08/27/2020 14:18 Indication: Insertion of portacatheter Procedure: Single AP view of the right chest. 30 seconds of fluoroscopy. Comparison: Chest dated 08/18/2020 Findings: Portacatheter tip in the SVC. Resolution is limited for evaluation of the lung parenchyma. Please refer to procedural report for details. Impression: 1: Portacatheter tip in the SVC. Reviewed, dictated and finalized at location B. Impression: 1: Portacatheter tip in the SVC.
--- NOTE | ~2020-08-27 | XR_ITS ---
EXAMINATION: XR chest port-a-cath/central DATE: 08/27/2020 14:39 INDICATION: Port placement. TECHNIQUE: A single frontal view of the chest was obtained. COMPARISON: Chest single view 08/18/2020, 08/17/2020 FINDINGS: There is a cavitary mass in right lung upper lobe. There is partial collapse of right upper lobe. No pleural effusion or pneumothorax. The heart size is normal. There is a right internal jugul ar port with tip in superior vena cava. IMPRESSION: 1. Port tip in superior vena cava. 2. Right lung upper lobe mass, consistent with primary bronchogenic carcinoma. 3. Partial collapse of right lung upper lobe. Reviewed, dictated and finalized at location A.
[2020-08-27 11:40] VITALS: BP 101/70; PULSE 99; RESP 20; TEMP 36.8; O2SAT 98
[2020-08-27] MEDS: LACTATED RINGERS 1,000 ML 30 ML IV CONT (12:10)
[2020-08-27] MEDS: KETOROLAC 15 MG/ML VIAL (*BKC) IV PUSH (12:17)
--- NOTE | 2020-08-27 12:23 | SUR.PREOP ---
0825-SPOKE WITH MICHEAL DING RE: CARDIAC CLEARANCE REQUESTED IN H/P NOTED. SHE STATES OFFICE RECEIVED FAX OF CLEARANCE, WILL PROCEED.
--- NOTE | 2020-08-27 12:36 | SUR.PREOP ---
1200-PT AWARE PREVIOUS SURGEON DELAYS DR. HOFFMANN ~30 MINUTES.
--- NOTE | 2020-08-27 13:19 | SUR.PREOP ---
1315-DISCUSSED AMOXICILLIN REACTION WITH DR. HOFFMANN, WILL PROCEED WITH [facility] [place].
--- NOTE | 2020-08-27 13:34 | WPDHPUPDATE1 ---
History and Physical Update Update Date/Time: 08/27/20 13:34 History and Physical has been reviewed, including an updated exam of the patient. There are NO changes in the patient's condition. Risks, benefits, and alternatives of placement of a moisés-cath have been discussed and questions answered. Patient agrees to proceed with procedure.
[2020-08-27] MEDS: ceFAZolin 2 GM/D5W 50 ML 2 GM/50 ML BAG IVPB (13:58)
[2020-08-27] MEDS: BUPIVACAINE/EPINEPHRINE 0.5% 30 ML VIAL INFILTRATE (14:00)
[2020-08-27] MEDS: HEPARIN SODIUM 5,000 UNITS/ML VIAL 5000 UNITS IRRIGATION (14:03)
[2020-08-27 14:27] VITALS: BP 84/32; PULSE 85; RESP 12; O2SAT 96
--- NOTE | 2020-08-27 14:31 | PM.PROC ---
Procedure Note - Detailed Date of procedure: 08/27/20 Pre-op diagnosis: lung CA History of malignant pericardial effusion Procedure performed: Ultrasound-guided placement of Port-A-Cath Description of procedure: Patient was seen and marked in the pre-op area prior to coming to the OR. Patient was brought to the operating room. She was placed supine on the operating table and general IV sedation was induced. The nurse housing management representative provided oxygen and IV sedation. Patient's head was carefully turned to the left side while in the supine position and the patient's entire neck and anterior chest on both sides was prepped and draped in the usual sterile fashion. Following this the appropriate time-out was completed confirming procedure and patient. We confirmed that all the needed equipment was present in the room. Following this the ultrasound probe was draped into the field and using the probe we carefully identified the carotid artery and jugular vein on the right neck. We took a picture of the vascular anatomy in this area. This was recorded on the ultrasound machine and transferred to the medical record. I marked the skin directly over the Rt. internal jugular vein. After placing local anesthetic I made a small slit with an 11 blade knife right over the right internal jugular vein. Following this, using the continuous ultrasound guidance, a Cook needle was placed through the skin into this vein. I then was able to draw back good dark blood. Once this was completed a guidewire using a J-tip was advanced through the needle and then the needle and the guidewire cover were withdrawn. C-arm fluoroscopy was used to confirm that the guidewire was nicely in the central venous system. Once this was confirmed with the C - arm I preceded on by making the pocket for the port on the patient's anterior right chest approximately 3 centimeters below the clavicle overlying the chest wall. Local anesthetic was infiltrated into the skin where there was a transverse incision marked out. Incision was made and we made a pocket inferior to the incision with just a little dissection superior. The low-profile port was tried in the pocket and seemed to fit well. Following this the catheter which had been placed on a tunneling device was tunneled from the port site on the anterior right chest up to the right neck where a small incision had been made with an #11 blade knife. Then the catheter was pulled through so that we would have 15 centimeters to put into the central venous system once the dilation took place. Following this we placed the dilator and sheath over the guidewire in the jugular vein and carefully dilated the tract into the central venous system. The guidewire and dilator were then removed, carefully covering the end of the sheath to prevent air embolus. The end of the catheter which had been cut off straight across and the tip checked was then inserted into the sheath and into the neck. I then carefully pulled the 2 arms of the tear-away sheath away as the assistant speech language pathologist held the catheter in position with a DeBakey forceps. Following this we checked the position of the catheter with C-arm fluoroscopy confirming that the tip seemed to be in the distal superior vena cava near the junction with the right atrium. I felt that it was in good position and so the rest of the catheter was pulled down toward the feet into the port site. We then measured to the appropriate position to cut the catheter to attach it to the port stem. Then the connector sealing device for the catheter port was placed onto the catheter and then the catheter cut to the appropriate length and inserted onto the stem of the port. Then the connector was advanced onto the stem over the catheter sealing it to the port. A single 3- 0 Prolene suture was also used during this to suture the connector to the port and to the underlying musculature. Following this at one other site the port was sutured to the underlying
[2020-08-27 14:57] VITALS: BP 91/64; PULSE 85; RESP 12
--- NOTE | 2020-08-27 14:59 | SUR.PHASEII ---
DR HOFFMANN READ XRAY REPORT AND SAID WE ARE OK TO PROCEED TO DISCHARGE PT HOME.
[2020-08-27] MEDS: oxyCODONE HCL (*CRX) 5 MG TAB IR PO (15:16)
[2020-08-27 15:27] VITALS: BP 92/66; PULSE 85; RESP 12
== END 2020-08-27 15:35 | disposition home or self-care (01) ==
PROVIDERS: Visit Provider Surgery
PROC: (CPT 36561; principal; 2020-08-27 13:30)
DX: C34.90 Malignant neoplasm of unspecified part of unspecified bronchus or lung (principal); J91.0 Malignant pleural effusion; I10 Essential (primary) hypertension; F17.210 Nicotine dependence, cigarettes, uncomplicated
CPT/HCPCS: 36561; 76937; 77001; A9270; C1788; C9803; J0690; J1644; J1885; J2250; J2704; J3010; J7030; J7120; U0003; U0005

== ENCOUNTER 2020-09-22 09:04 | Emergency (ER) | payer BC, SELFPAY ==
[2020-09-22] VITALS (17 sets, daily range): BP systolic 94–140; BP diastolic 64–105; PULSE 99–117; RESP 16–39; TEMP 36.3–36.8; O2SAT 92–99
--- NOTE | 2020-09-22 | ECHOL_ITS ---
Patient Info Name: Elaina Mora Age: 50 years : 1970 Gender: Female Ht: 64 in Wt: 139 lbs BSA: 1.70 m2 HR: 101 bpm BP: 140 / 79 mmHg Exam Date: 09/22/2020 1:09 PM Exam Location: [facility] Pulmonary Patient Status: Emergency Admit Date: 09/22/2020 Staff Ordering Physician: Harmeet Bedoya DO Battery Tester: Suzi Arevalo RDCS Attending Provider: Harmeet Bedoya DO Referring Physician: Elke NGUYEN; Exam Type: CA echo limited Study Info Indications I31.3 - Pericardial effusion (noninflammatory) Limited two-dimensional transthoracic echocardiogram is performed. Summary 1. Left ventricular systolic function is normal, estimated at 60-65%. 2. There is moderate pericardial effusion. 3. The pericardium appears extra-pericardial mass. Left Ventricle Left ventricular chamber dimension is normal. Left ventricular systolic function is normal, estimated at 60-65%. There is no increased left ventricular wall thickness. Left ventricular septal wall motion is normal. The left ventricular diastolic function is normal. Right Ventricle Right ventricular chamber dimension is normal. Right ventricular systolic function is normal. Left Atria Left atrial chamber dimension is normal. Right Atria Right atrial chamber dimension is normal. Aortic Valve The aortic valve is trileaflet. There is no aortic valve sclerosis. There is no aortic valve stenosis. There is no aortic valve regurgitation. Pulmonic Valve The pulmonic valve is normal. There is no pulmonic valve stenosis. There is no pulmonic regurgitation. Mitral Valve The mitral valve has normal leaflets. There is no mitral valve stenosis. There is no mitral valve regurgitation. Tricuspid Valve The tricuspid valve leaflets are normal. There is no significant tricuspid valve stenosis. There is no tricuspid valve regurgitation. No pulmonary hypertension, estimated pulmonary arterial systolic pressure is 33 mmHg. Pericardium/Pleural The pericardium appears extra-pericardial mass. There is moderate pericardial effusion. Inferior Vena Cava Normal inferior vena cava with >50% collapse upon inspiration consistent with elevated right atrial pressure, 15 mmHg. Aorta The aortic root size at the sinus of Valsalva is normal. The prox ascending aorta size is normal. Tricuspid Valve Name Value Normal Estimated PAP/RSVP RA Pressure 15 mmHg <=5 PA Systolic Pressure 33 mmHg <36 Report Signatures
--- NOTE | ~2020-09-22 | CT_ITS ---
EXAMINATION: CTA chest PE protocol DATE: 09/22/2020 10:42 INDICATION: Dyspnea. Chest tightness. TECHNIQUE: Computed tomography angiography (CTA) of the chest was performed with 100 mL Omnipaque-350 intravenous contrast timed to evaluate the pulmonary arteries. Coronal maximum intensity projection 3D-reconstructions were created by the technologist. Automated exposure control and iterative reconst ruction technique were employed. The dose-length product was 232.58 mGy-cm. COMPARISON: Chest CT 08/17/2020 FINDINGS: There is a 5.8 x 5.8 cm mass with central cavitation in right lung upper lobe. There is par tial collapse of right upper lobe. There is smooth septal thickening in the lungs, consistent with mi ld pulmonary edema. There is mild atelectasis in left lung. There are moderate-sized pleural effusion s. There is a moderate-sized pericardial effusion with pericardial thickening. There is mass effect o n the heart. There is a right internal jugular port with tip in right atrium. There is a right hilar and paratracheal lymphadenopathy with stenosis of perihilar right pulmonary arteries. There are acute emboli in right lower lobe, right middle lobe, and left lower lobe pulmonary arteries. There is mode rate thoracic spondylosis. There are chronic compression fractures of T9 and T11. IMPRESSION: 1. Acute pulmonary emboli in the lower lobes and right middle lobe with mildly worsened distribution from 08/17/20. 2. Moderate-sized malignant pericardial effusion with mass effect on the heart. 3. 5.8 cm right upper lobe mass and right hilar and paratracheal lymphadenopathy with stenosis of per ihilar right pulmonary arteries, consistent with primary bronchogenic carcinoma and metastatic diseas e. 4. Mild pulmonary edema. 5. Moderate-sized bilateral pleural effusions. Reviewed, dictated and finalized at location B. IMPRESSION: 1. Acute pulmonary emboli in the lower lobes and right middle lobe with mildly worsened distribution from 08/17/20. 2. Moderate-sized malignant pericardial effusion with mass effect on the heart. 3. 5.8 cm right upper lobe mass and right hilar and paratracheal lymphadenopath y with stenosis of perihilar right pulmonary arteries, consistent with primary bronchogenic carcinoma and metastatic disease. 4. Mild pulmonary edema. 5. Moderate-sized bilateral pleural effusions.
--- NOTE | ~2020-09-22 | US_ITS ---
EXAMINATION:US venous doppler LE BI INDICATION:Pulmonary embolism. Lung cancer. TECHNIQUE: Multiple grayscale, color flow and Doppler images of the right and left lower extremity de ep venous systems were obtained and reviewed. COMPARISON:Ultrasound dated 08/17/2020 FINDINGS: The common femoral, superficial femoral and popliteal veins demonstrate normal respiratory variation, augmentation and compressibility. Color flow is also seen within the posterior tibial, pe roneal, greater saphenous and profunda veins. IMPRESSION: 1: No lower extremity deep venous thrombosis. Reviewed, dictated and finalized at location A.
--- NOTE | 2020-09-22 09:21 | ECG_ITS ---
Measurements Intervals [place] Rate: 101 P: 56 CT: 146 QRS: 60 QRSD: 78 T: 193 QT: 363 QTc: 470 Interpretive Statements SINUS TACHYCARDIA POSSIBLE LEFT ATRIAL ENLARGEMENT ST-T WAVE ABNORMALITY IN ANTEROLAT/HIGH LAT LEADS- CONSIDER ISCHEMIA BASELINE WANDER- V5-V6 ABNORMAL ECG Electronically Signed On 09-22-2020 9:33:14 CDT by Eitan Boles D.O.
--- NOTE | 2020-09-22 09:49 | ED.SOB ---
HPI - SOB/Dyspnea General Chief Complaint: Shortness of Breath/Dyspnea Stated Complaint: sob Time Seen by Provider: 09/22/20 09:14 Source: RN notes reviewed History of Present Illness HPI Narrative: Patient presents emergency room from home for shortness of breath. Patient states she has had increasing shortness of breath over the past 3 days. States that her chest feels tight and that she cannot take a deep breath associated with a mild nonproductive cough she denies any fevers or chills chest pain abdominal pain nausea vomiting or any other symptoms. The patient was recently diagnosed with lung cancer to start chemo approximately a week ago Related Data Home Medications Medication Instructions Recorded Confirmed aspirin 325 mg PO DAILY 09/03/20 09/12/20 black cohosh 20 mg PO DAILY 09/03/20 09/12/20 cyanocobalamin (vitamin B-12) 1,000 mcg SUBLINGUAL DAILY 09/12/20 09/12/20 [Vitamin B-12] ferrous sulfate 325 mg PO DAILY 09/12/20 09/12/20 folic acid 1 mg PO DAILY 09/12/20 09/12/20 ondansetron 8 mg PO Q8H PRN 09/12/20 09/12/20 Allergies Allergy/AdvReac Type Severity Reaction Status Date / Time amoxicillin AdvReac Intermediate Blister on Verified 09/16/20 13:45 palms of hands Review of Systems Review of Systems: Narrative: Gen.: Denies fevers or chills ENT: Denies congestion Respiratory: See HPI CV: Denies chest pain or palpitations GI: Denies abdominal pain nausea, emesis or diarrhea Musculoskeletal: Denies back pain or muscle pain Neuro: Denies numbness, tingling, weakness or focal weakness Skin: Denies rash Except as documented, all other systems reviewed and negative [facility] Past Medical History Medical History Anemia Cavitating mass in right upper lung lobe (~07/25/20) Noted on screening chest CT. Elevated LFTs Emphysema lung Essential hypertension Metastatic non-small cell lung cancer Pericardial effusion with cardiac tamponade effusion drained on 08/17/20 Pulmonary embolism Right adrenal mass Tobacco abuse Reportedly quit smoking on 08/07/2020. Surgical History Surgical History History of arthroscopic surgery of shoulder Removal of bone spurs from the AC joint. History of bunionectomy of right great toe History of dilation and curettage History of hysterectomy [place] teeth removed Family History Family History Grandparent Malignant neoplasm of prostate Grandparent Diabetes mellitus Father Acute myocardial infarction Mother Gastric disease Social History Social History Social History: Surrogate decision maker: Yosef Mora, . Code status: Full code. Smoking packs per day: 1 Smoking cigarettes per day: 20.0 Years smoked: 25 Smoking pack-years: 25.00 Smoking status: Former smoker Tobacco type: cigarettes Second hand tobacco smoke exposure: No Smoking end date: 07/31/20 Alcohol intake: current Drinks per week: 5 Substance use: never Substance use type: does not use Additional living arrangements comments: Patient is and lives with her and 2 children in [place]. Additional occupation/education comments: Works for [employer]. Gender identity (if verbalized by the patient): Female Spiritual care concerns: No Exam Narrative: Exam Narrative: APPEARANCE: No acute distress, nontoxic, resting in bed EYES: EOMI HEENT: Normocephalic, atraumatic, OMM RESPIRATORY: No respiratory distress Clear to auscultation bilaterally with no rhonchi wheezing or rales. CARDIOVASCULAR: Regular rate and rhythm without murmurs rubs or gallops. ABDOMINAL: Soft, nontender, nondistended, no rebound or guarding MUSCULOSKELETAl: Moves all extremities. No clubbing, cyanosis or edema. NEURO: Awake and alert. Following
[2020-09-22] MEDS: ALBUTEROL SULFATE NEB 2.5 MG/0.5 ML INH 5 MG INHALATION (09:58)
[2020-09-22] MEDS: IPRATROPIUM BR 0.02% INH SOLN 0.5 MG/2.5 ML VIAL INHALATION (09:58)
[2020-09-22 10:11] LABS: Basophils Percent Auto 0.3 % (0.2-1.2); Eosinophils Percent Auto 0.3 % (0-4.4); Hemoglobin 8.4 g/dL (12.0-15.0); Immature Granulocyte Absolute 0.02 K/mm3 (0.00-0.031); Immature Granulocyte Percent A 0.5 % (0-0.5); Lymphocytes Absolute Auto 1.19 K/mm3 (0.9-3.2); Lymphocytes Percent Auto 32.1 % (18.3-44.2); Mean Corpuscular HGB Conc 32.3 g/dl (32-36); Mean Corpuscular Hemoglobin 30.1 pg (26-34); Mean Corpuscular Volume 93.2 fl (80-100); Mean Platelet Volume 10.2 fl (7.4-10.4); Monocytes Absolute Auto 0.8 K/mm3 (0.1-0.6); Monocytes Percent Auto 20.2 % (2.6-8.5); Neutrophils Absolute Auto 1.7 K/mm3 (1.3-6.7); Neutrophils Percent Auto 46.6 % (45.5-73.1); Platelet Count Result 231 k/mm3 (150-375); Red Blood Count 2.79 M/mm3 (4.2-5.4); Red Cell Distribution Width 12.6 % (11.5-14.5); White Blood Count 3.7 K/mm3 (4.5-10.0)
[2020-09-22 10:22] LABS: INR 1.2; Prothrombin Time 15.7 Seconds (11.1-14.7)
[2020-09-22 10:23] LABS: Partial Thromboplastin Time 27.3 SECONDS (22.3-36.8)
[2020-09-22 10:25] LABS: Alanine Aminotransferase 32 U/L (4-35); Albumin Level 3.4 g/dL (3.5-5.1); Alkaline Phosphatase 86 U/L (38-126); Anion Gap 5 mmol/L (8-16); Aspartate Amino Transferase 35 U/L (14-36); Bilirubin,Total 0.3 mg/dL (0.2-1.3); Blood Urea Nitrogen 5 mg/dL (7-17); Carbon Dioxide 27 mmol/L (22-30); Chloride 95 mmol/L (98-107); Estimated CRCL calculation 117 ml/min; Estimated Glomerular Filt Rate > 60; Glucose 141 mg/dL (65-105); Potassium 3.8 mmol/L (3.4-5.0); Sodium 127 mmol/L (137-145)
[2020-09-22 10:29] LABS: Anisocytosis 2+ (NORMAL); Platelet Estimate Adequate (Adequate); Poikilocytosis 1+ (NORMAL)
[2020-09-22 10:31] LABS: Hypochromasia 1+ (NORMAL); Ovalocytes 1+ (NORMAL)
[2020-09-22 10:37] LABS: Troponin I < 0.012 ng/mL (0.000-0.034)
--- NOTE | 2020-09-22 11:46 | PC.NURSE ---
[facility] for [facility] to call back for Bed status
[2020-09-22] MEDS: FUROSEMIDE INJ 40 MG/4 ML VIAL IV PUSH (12:33)
--- NOTE | 2020-09-22 15:36 | PM.CNCAR ---
Assessment and Plan Assessment and plan (1) Metastatic non-small cell lung cancer: Code(s): C34.90 - Malignant neoplasm of unspecified part of unspecified bronchus or lung Status: Acute (2) Pericardial effusion with cardiac tamponade: Code(s): I31.3 - Pericardial effusion (noninflammatory); I31.4 - Cardiac tamponade Status: Acute Assessment and Plan: She has a recurrent effusion, status post drainage last admission, now she has moderate size effusion but no evidence of tamponade at this time, her echocardiogram however showed possible mass in the pericardium, which is most likely metastatic disease (3) Malignant pericardial effusion: Code(s): I31.3 - Pericardial effusion (noninflammatory); C80.1 - Malignant (primary) neoplasm, unspecified Status: Acute Assessment and Plan: Echo showed mass in the pericardium suggestive of metastatic disease (4) Pulmonary embolism: Qualifiers: Pulmonary embolism type: single subsegmental (without acute cor pulmonale) Qualified Code(s): I26.93 - Single subsegmental pulmonary embolism without acute cor pulmonale Code(s): I26.99 - Other pulmonary embolism without acute cor pulmonale Status: Acute Assessment and Plan: She has filling defects on pulmonary arteries, could be PE but also could be metastatic disease, venous Doppler was done in emergency room showed no evidence of DVT, for the time being will start on heparin without a bolus and watch her overall effusion and overall status, once she gets the window done and she treated for her malignancy then we consider small dose anticoagulation if he is still suspected History of Present Illness History of Present Illness Consult date/time: 09/22/20 15:36 Chief complaint is shortness of breath 50 years old lady with history of recently diagnosed lung cancer, and history of pericardial effusion status post pericardial tamponade and pericardial drainage, came into the hospital because of worsening shortness breath for the past week or so. She was here few weeks ago at that time she was in with significant dizziness at that time she was found to have pericardial tamponade. She underwent pericardiocentesis with about 1.1 L of fluid out, subsequently she did well, but at that time she was noted to have malignant cells in her effusion. Subsequent echocardiogram done as an outpatient for follow-up showed no recurrence of effusion, she started chemotherapy last week, and since then she has been feeling fatigue and weak, and worsening shortness of breath. Her last CT at that time when she was in showed possible small PE, this CT now this time showed significant effusion but also possible filling defect in the pulmonary artery with suspected PE. No leg pain or leg swelling no chest pain. No orthopnea no PNDs Reason For Visit: sob Review of Systems Constitutional: Constitutional: Reports difficulty sleeping, Reports fatigue, Reports lethargy and Reports malaise Cardiovascular: Cardiovascular: Reports as per HPI Respiratory: Respiratory: Reports as per HPI [facility] Past Medical History Medical History Anemia Cavitating mass in right upper lung lobe (~07/25/20) Noted on screening chest CT. Elevated LFTs Emphysema lung Essential hypertension Metastatic non-small cell lung cancer Pericardial effusion with cardiac tamponade effusion drained on 08/17/20 Pulmonary embolism Right adrenal mass Tobacco abuse Reportedly quit smoking on 08/07/2020. Surgical History Surgical History History of arthroscopic surgery of shoulder Removal of bone spurs from the AC joint. History of bunionectomy of right great toe History of dilation and curettage History of hysterectomy [place] teeth removed Family History Family History Grandparent
[2020-09-22] MEDS: MORPHINE SULFATE (*CRX) 2 MG/ML INJ IV PUSH (15:42)
[2020-09-22] MEDS: HEPARIN SOD/D5W 100 UNITS/ML 25,000 UNITS/250 ML BAG 11 UNITS IV CONT (15:45)
[2020-09-22] MEDS: HYDROmorphone HCL INJ (*CRX) 1 MG/ML SYR 0.5 MG IV PUSH ×2 (18:38→21:16)
[2020-09-22] MEDS: ONDANSETRON INJ 4 MG/2 ML VIAL IV PUSH (18:38)
--- NOTE | 2020-09-22 23:23 | PC.NURSE ---
ems pending for transport.
[2020-09-22 23:31] LABS: INR 1.2; Prothrombin Time 15.8 Seconds (11.1-14.7)
[2020-09-22 23:32] LABS: Partial Thromboplastin Time 56.6 SECONDS (22.3-36.8)
--- NOTE | 2020-09-22 23:51 | PC.NURSE ---
called pinky and converse with sung.advised of heparin change.
== END 2020-09-22 23:54 | disposition short-term general hospital (02) ==
PROVIDERS: Emergency Medicine; Emergency Provider Emergency Medicine; PCP Internal Medicine
DX: I26.93 Single subsegmental thrombotic pulmonary embolism without acute cor pulmonale (principal); I31.4 Cardiac tamponade; I31.3 Pericardial effusion (noninflammatory); C34.90 Malignant neoplasm of unspecified part of unspecified bronchus or lung; D64.9 Anemia, unspecified; J43.9 Emphysema, unspecified; I10 Essential (primary) hypertension; Z86.711 Personal history of pulmonary embolism; Z87.891 Personal history of nicotine dependence; Z79.82 Long term (current) use of aspirin; R00.0 Tachycardia, unspecified; R94.31 Abnormal electrocardiogram [ECG] [EKG]
CPT/HCPCS: 36415; 71275; 80053; 84484; 85025; 85610; 85730; 93005; 93308; 93970; 94640; 96365; 96366; 96375; 96376; 99291; J1170; J1644; J1940; J2270; J2405; Q9967

== ENCOUNTER 2020-09-29 09:18 | Observation (INO) | payer BC, SELFPAY ==
[2020-09-29] VITALS (15 sets, daily range): BP systolic 118–146; BP diastolic 75–103; PULSE 87–98; RESP 16–36; TEMP 36–36.7; O2SAT 97–100; BMI 25.0
--- NOTE | 2020-09-29 | ECHOL_ITS ---
Patient Info Name: Elaina Mora Age: 50 years : 1970 Gender: Female Ht: 64 in Wt: 140 lbs BSA: 1.70 m2 HR: 92 bpm BP: 119 / 75 mmHg Technical Quality: Good Exam Date: 09/29/2020 12:02 PM Exam Location: [facility] Pulmonary Patient Status: Emergency Admit Date: 09/29/2020 Staff Ordering Physician: Jade Nascimento PA-C Sound Controller: CARLENE Attending Provider: Dominga Sanches MD Referring Physician: Azam YIP; Exam Type: CA echo limited Study Info Limited two-dimensional transthoracic echocardiogram is performed. Summary 1. Limited echo without Doppler. Normal LV size and wall thickness; normal overall LV systolic function, EF 60-65%; paradoxical septal motion. Normal structure of the valves. Small pericardial effusion with fibrinous material; large left pleural effusion with atelectasis. Left Ventricle Left ventricular chamber dimension is normal. Left ventricular systolic function is normal, estimated at 60-65%. There is no increased left ventricular wall thickness. Right Ventricle Right ventricular chamber dimension is normal. Right ventricular systolic function is normal. Left Atria Left atrial chamber dimension is normal. Right Atria Right atrial chamber dimension is not well visualized. Aortic Valve The aortic valve is normal. There is no aortic valve stenosis. Mitral Valve The mitral valve has normal leaflets. Pericardium/Pleural There is small pericardial effusion. Aorta The aortic root size at the sinus of Valsalva is normal. Report Signatures
--- NOTE | ~2020-09-29 | XR_ITS ---
EXAMINATION: XR chest 1V portable EXAM DATE: 09/30/2020 14:02 INDICATION: Pleural effusion and lung cancer. TECHNIQUE: Portable AP frontal chest x-ray was obtained. Comparison is made to prior examination from 09/29/2020. FINDINGS: There is right upper lobe mass and atelectasis, opacified with evidence of volume loss. The re is small right pleural effusion. Small to moderate left pleural effusion with adjacent multisegmen merissa atelectasis. No pneumothorax or significant interval change. Cardiomediastinal silhouette is norm al. There are no osteoblastic or osteolytic lesions identified. There is no significant interval garcia ge. IMPRESSION: 1. Right upper lobe mass and resultant postobstructive atelectasis. 2. Small to moderate left pleural effusion, adjacent multisegmental atelectasis. Reviewed, dictated and finalized at location B. IMPRESSION: 1. Right upper lobe mass and resultant postobstructive atelectasis. 2. Small to moderate left pleural effusion, adjacent multisegmental atelectasi s.
--- NOTE | ~2020-09-29 | XR_ITS ---
EXAMINATION: XR chest 1V portable DATE: 10/01/2020 06:00 INDICATION: Pleural effusions TECHNIQUE: frontal view of the chest was obtained. COMPARISON: Chest radiograph dated 09/30/[address] dated 09/22/2020 FINDINGS: No significant change in bilateral airspace opacities most prominent in the right upper lobe, left lo wer lung zone consistent with small right and small to moderate left pleural effusions and associated atelectasis. The opacity in the right upper lobe is also due in part to a cavitary mass concerning f or primary bronchogenic carcinoma based upon the appearance on prior CT. No pneumothorax. The cardiom ediastinal silhouette is normal. Right internal jugular central venous port catheter with distal tip at the superior cavoatrial junction. IMPRESSION: 1. Right upper lobe mass with secondary postobstructive atelectasis. 2. No significant change in small right and [id number] left pleural effusions and associated a telectasis although pneumonia not excludable. Reviewed, dictated and finalized at location A. IMPRESSION: 1. Right upper lobe mass with secondary postobstructive atelectasis. 2. No significant change in small right and [id number] left pleural effu sions and associated atelectasis although pneumonia not excludable.
--- NOTE | ~2020-09-29 | US_ITS ---
EXAMINATION: US venous doppler [facility] EXAM DATE: 09/30/2020 15:43 INDICATION: Pulmonary embolism. TECHNIQUE: Multiple grayscale, color flow and Doppler images of the lower extremity deep venous syste ms bilaterally were obtained and reviewed. Comparison is made to prior examination from 09/22/2020. FINDINGS: Again, there are pulsatile biphasic waveforms bilaterally which is likely being transmitted from the heart, could indicate tricuspid regurgitation or right heart failure. Right side: The right common femoral, femoral and profunda veins demonstrate normal color flow and co mpressibility. Compressibility, color flow confirmed within the right popliteal, posterior tibial, p eroneal, and greater saphenous veins. Left side: The left common femoral, femoral and profunda veins demonstrate normal color flow and comp ressibility. Compressibility, color flow confirmed within the left popliteal, posterior tibial, elizabeth oumar, and greater saphenous veins. IMPRESSION: 1. No lower extremity deep venous thrombosis bilaterally. 2. Abnormal biphasic pulsatile lower extremity venous waveforms, likely transmitted from the heart. Reviewed, dictated and finalized at location B. IMPRESSION: 1. No lower extremity deep venous thrombosis bilaterally. 2. Abnormal biphasic pulsatile lower extremity venous waveforms, likely transm itted from the heart.
--- NOTE | ~2020-09-29 | CT_ITS ---
EXAMINATION: CT brain wo con DATE: 10/01/2020 11:27 INDICATION: Dizziness. Hyponatremia. TECHNIQUE: Computed tomography (CT) of the head was performed without intravenous contrast. The mA wa s adjusted according to patient size. Iterative reconstruction technique was employed. The dose-lengt h product was 756.67 mGy-cm. COMPARISON: None FINDINGS: There is no intracranial hemorrhage, acute infarction, or abnormal intracranial mass lesion . There are scattered areas of low attenuation in the cerebral white matter. The ventricles are hunter l in size. The mastoid air cells are normal. The paranasal sinuses are clear. The orbits are normal. IMPRESSION: 1. Mild nonspecific cerebral white matter disease, which likely represents chronic small vessel ische emir disease. Reviewed, dictated and finalized at location A. IMPRESSION: 1. Mild nonspecific cerebral white matter disease, which likely represents manager cardiovascular beth small vessel ischemic disease.
--- NOTE | ~2020-09-29 | XR_ITS ---
EXAMINATION: XR chest 2V DATE: 09/29/2020 09:57 INDICATION: Shortness of breath. TECHNIQUE: Frontal and lateral views of the chest were obtained. COMPARISON: Chest single view 08/27/2020, chest CT 09/22/2020 FINDINGS: There is a mass in right lung upper lobe with right upper lobe atelectasis. There are small pleural effusions. There are airspace opacities at the lung bases. No pneumothorax. There is enlarge ment of the cardiac silhouette. There is a right internal jugular port with tip at superior cavoatria l junction. IMPRESSION: 1. Mass in right lung upper lobe, consistent with primary bronchogenic carcinoma. 2. Partial collapse of right upper lobe. 3. Small pleural effusions. 4. Airspace opacities at the lung bases, left worse than right, consistent with atelectasis or less l ikely pneumonia. 5. Enlargement of the cardiac silhouette, likely secondary to pericardial effusion. Reviewed, dictated and finalized at location A. IMPRESSION: 1. Mass in right lung upper lobe, consistent with primary bronchogenic carcinom a. 2. Partial collapse of right upper lobe. 3. Small pleural effusions. 4. Airspace opacities at the lung bases, left worse than right, consistent with atelectasis or less likely pneumonia. 5. Enlargement of the cardiac silhouette, likely secondary to pericardial effus ion.
--- NOTE | 2020-09-29 09:33 | ECG_ITS ---
Measurements Intervals [place] Rate: 100 P: 44 [place]: 145 QRS: 55 QRSD: 82 T: 176 QT: 363 QTc: 469 Interpretive Statements SINUS TACHYCARDIA ST-T WAVE ABNORMALITY IN LATERAL LEADS- CONSIDER ISCHEMIA BASELINE ARTIFACT- I, II, V4 ABNORMAL ECG Electronically Signed On 09-29-2020 10:23:43 CDT by Eitan Boles D.O.
[2020-09-29 09:53] LABS: Basophils Percent Auto 0.3 % (0.2-1.2); Eosinophils Percent Auto 0.4 % (0-4.4); Hematocrit 25.9 % (37.0-47.0); Hemoglobin 8.5 g/dL (12.0-15.0); Immature Granulocyte Percent A 2.7 % (0-0.5); Lymphocytes Percent Auto 19.9 % (18.3-44.2); Mean Corpuscular HGB Conc 32.8 g/dl (32-36); Mean Corpuscular Hemoglobin 30.1 pg (26-34); Mean Corpuscular Volume 91.8 fl (80-100); Mean Platelet Volume 9.6 fl (7.4-10.4); Monocytes Absolute Auto 1.7 K/mm3 (0.1-0.6); Monocytes Percent Auto 22.1 % (2.6-8.5); Neutrophils Absolute Auto 4.1 K/mm3 (1.3-6.7); Neutrophils Percent Auto 54.6 % (45.5-73.1); Platelet Count Result 405 k/mm3 (150-375); Red Blood Count 2.82 M/mm3 (4.2-5.4); Red Cell Distribution Width 13.7 % (11.5-14.5); White Blood Count 7.5 K/mm3 (4.5-10.0)
[2020-09-29 10:04] LABS: Anisocytosis 1+ (NORMAL); Hypochromasia 2+ (NORMAL); Ovalocytes 1+ (NORMAL); Platelet Estimate Adequate (Adequate)
[2020-09-29 10:18] LABS: Anion Gap 10 mmol/L (8-16); Blood Urea Nitrogen 9 mg/dL (7-17); Calcium 8.9 mg/dL (8.4-10.2); Carbon Dioxide 30 mmol/L (22-30); Chloride 79 mmol/L (98-107); Estimated CRCL calculation 81 ml/min; Estimated Glomerular Filt Rate > 60; Glucose 134 mg/dL (65-105); Potassium 3.2 mmol/L (3.4-5.0); Sodium 119 mmol/L (137-145)
[2020-09-29 10:40] LABS: INR 1.4; Prothrombin Time 18.2 Seconds (11.1-14.7)
[2020-09-29 10:41] LABS: NT Pro B Type Natriuretic Pept 2690 pg/mL (5-100)
[2020-09-29 10:42] LABS: Partial Thromboplastin Time 44.4 SECONDS (22.3-36.8)
--- NOTE | 2020-09-29 10:44 | ED.SOB ---
HPI - SOB/Dyspnea General Chief Complaint: Shortness of Breath/Dyspnea <Jade Nascimento PA-C - Last Filed: 09/29/20 15:46> Stated Complaint: sob <CHARLIE Alex Last Filed: 09/29/20 15:46> Time Seen by Provider: 09/29/20 10:16 <CHARLIE Alex Last Filed: 09/29/20 15:46> Source: patient <CHARLIE Alex Last Filed: 09/29/20 15:46> Mode of arrival: ambulatory <CHARLIE Alex Last Filed: 09/29/20 15:46> Limitations: no limitations <CHARLIE Alex Last Filed: 09/29/20 15:46> History of Present Illness HPI Narrative: This is a 50-year-old female that presents to the emergency department for shortness of breath increasing over the last 2 days. Reports she was discharged from [facility] after having a pericardial window. She was discharged on 2 L nasal cannula. She has continued to feel short of breath. She also has a chest tightness due to her difficulty breathing that has been constant. She has history of recently diagnosed lung cancer and pulmonary emboli. Her oncologist is Dr. Desai. Her playground monitor is Dr. Urias. Does report a mild cough that is intermittently productive of sputum. Also reports lower extremity edema. Denies fevers. <Jade Nascimento PA-C - Last Filed: 09/29/20 15:46> Related Data Home Medications: Home Medications Medication Instructions Recorded Confirmed black cohosh 20 mg PO DAILY 09/03/20 09/12/20 cyanocobalamin (vitamin B-12) 1,000 mcg SUBLINGUAL DAILY 09/12/20 09/12/20 [Vitamin B-12] ferrous sulfate 325 mg PO DAILY 09/12/20 09/12/20 folic acid 1 mg PO DAILY 09/12/20 09/12/20 ondansetron 8 mg PO Q8H PRN 09/12/20 09/12/20 apixaban [Eliquis] 10 mg PO BID 09/29/20 benzonatate mg PO 09/29/20 09/29/20 docusate sodium 100 mg PO 09/29/20 furosemide 40 mg PO 09/29/20 09/29/20 guaifenesin 600 mg PO BID 09/29/20 pantoprazole 40 mg PO 09/29/20 tramadol 50 mg PO 09/29/20 <Jade Nascimento PA-C - Last Filed: 09/29/20 15:46> Allergies/Adverse Reactions: Allergies Allergy/AdvReac Type Severity Reaction Status Date / Time amoxicillin AdvReac Intermediate Blister on Verified 09/29/20 09:32 palms of hands <Jade Nascimento PA-C - Last Filed: 09/29/20 15:46> Review of Systems Review of Systems: Narrative: CONSTITUTIONAL: Denies fever CARDIOVASCULAR: Reports chest pain, and edema. RESPIRATORY: Reports cough and dyspnea. <CHARLIE Alex Last Filed: 09/29/20 15:46> All systems reviewed & are unremarkable except as noted in HPI and below <Jade Nascimento PA-C - Last Filed: 09/29/20 15:46> [facility] Past Medical History Medical History: Medical History Anemia Cavitating mass in right upper lung lobe (~07/25/20) Noted on screening chest CT. Elevated LFTs Emphysema lung Essential hypertension Metastatic non-small cell lung cancer Pericardial effusion with cardiac tamponade effusion drained on 08/17/20 Pulmonary embolism Right adrenal mass Tobacco abuse Reportedly quit smoking on 08/07/2020. <Jade Nascimento PA-C - Last Filed: 09/29/20 15:46> Surgical History Surgical History: Surgical History History of arthroscopic surgery of shoulder Removal of bone spurs from the AC joint. History of bunionectomy of right great toe History of dilation and curettage History of hysterectomy [place] teeth removed <CHARLIE Alex Last Filed: 09/29/20 15:46> Family History Family History: Family History Grandparent Malignant neoplasm of prostate Grandparent Diabetes mellitus Father Acute myocardial infarction Mother Gastric disease <Jade Nascimento PA-C - Last Filed: 09/29/20 15:46> Social History Social History: Social History (Reviewed 09/22/20 @ 09:50 by Harmeet Interiano
[2020-09-29 11:00] LABS: Troponin I < 0.012 ng/mL (0.000-0.034)
[2020-09-29] MEDS: FUROSEMIDE 40 MG TABLET PO ×2 (11:43→17:49)
[2020-09-29 12:18] LABS: Magnesium 1.5 mg/dL (1.6-2.3)
[2020-09-29] MEDS: traMADol HCL (*CRX) 50 MG TABLET PO ×2 (12:22→21:30)
[2020-09-29] MEDS: POTASSIUM CHLORIDE 20 MEQ TABLET 40 MEQ PO (12:22)
[2020-09-29 12:48] LABS: Sodium Urine Random < 5 meq/L
--- NOTE | 2020-09-29 13:07 | PC.NURSE ---
Called down to lab for add on osmolality.
[2020-09-29 13:21] LABS: Free T4 Free Thyroxine Reflex 1.29 ng/dL (0.78-2.19)
[2020-09-29 14:32] LABS: Total Triiodothyronine (T3) 0.73 NG/ML (0.97-1.69)
[2020-09-29] MEDS: MORPHINE SULFATE (*CRX) 4 MG/ML INJ IV PUSH (15:23)
[2020-09-29 16:15] LABS: Anion Gap 9 mmol/L (8-16); Blood Urea Nitrogen 7 mg/dL (7-17); Calcium 8.8 mg/dL (8.4-10.2); Carbon Dioxide 31 mmol/L (22-30); Chloride 79 mmol/L (98-107); Estimated CRCL calculation 81 ml/min; Estimated Glomerular Filt Rate > 60; Glucose 117 mg/dL (65-105); Potassium 3.7 mmol/L (3.4-5.0); Sodium 119 mmol/L (137-145)
--- NOTE | 2020-09-29 16:44 | ADMGEN ---
This patient, Elaina Mora, was admitted to Medical Room 344-01. Patient/family oriented to hospital policies and general routines including ID bracelet, bed and alarms, visiting hours, pain management, procedures, bathroom and other care routines, personal items, smoking policy, room service/diet, and visiting hours. Information on how to activate the Rapid Response Team has been discussed. Patient/Family are encouraged to report perceived risks to care and to ask questions if they do not understand what they are told or what they should do.
[2020-09-29] MEDS: guaiFENesin 12 HR 600 MG TABCR PO (17:49)
[2020-09-29] MEDS: ALBUTEROL SULFATE (*SP) AEROSOL 1 PUFF 2 PUFF INHALATION ×2 (17:53→21:31)
--- NOTE | 2020-09-29 22:00 | PM.IMHP ---
H&P: HPI History of Present Illness Date/Time: 09/29/20 22:00 Chief Complaint: Shortness of breath. Narrative: This is a pleasant 50-year-old female with fairly recent diagnosis of non-small cell lung cancer and pulmonary embolism within the past couple of months who presented to the emergency department earlier today from home for evaluation of increasing shortness of breath over last 2 days. She is known to myself and the hospitalist service when she was admitted on 08/17/2020 with shortness of breath, found to have evidence of tamponade for which she underwent pericardiocentesis for a malignant effusion. She was also found to have a pulmonary embolism at that time and was started on Eliquis. Since that time she has had her 1st chemotherapy treatment on 09/14/[address] Desai and is due for chemotherapy this coming Tuesday. In any event, she was recently admitted to this facility and was transferred to [facility] for pericardial window performed on 09/24/2020 due to malignant effusion. The 2 days following her pericardial window she ?felt awful? with nausea and vomiting. Tuesday evening and Tuesday during the day she felt pretty good however on Tuesday evening she developed increasing shortness of breath with development of orthopnea and lower extremity edema. She feels as though her chest is tight and that she cannot get in a deep breath. In the emergency department today she was found to have partial collapse of the right upper lobe likely related to the right upper lobe mass as well as small pleural effusion and an enlarged cardiac silhouette. A stat, limited echocardiogram showed only a small pericardial effusion with fibrinous material and a fairly large left-sided pleural effusion. After discussions with Dr. Urias it was decided that the patient was okay to stay here for further treatment. Additionally she was found to have pretty significant hyponatremia and she was told at [facility] that her sodium level was starting to trend downwards. Aside from no appetite she has also been extremely fatigued and a bit confused today. She has a mild cough occasionally productive of pink tinged sputum. She denies fever, chills, sweats, cold and flu symptoms, recent vomiting, and diarrhea. No exertional chest pain but she does note discomfort at the operative site where she had her pericardial window. Review of Systems Review of Systems: Narrative: Twelve systems were reviewed with pertinent positives and negatives as per HPI. She denies fever, chills, and sweats. No syncope or near syncope. She has had a poor appetite since but has not had any vomiting since Tuesday morning. No sick contacts. She denies calf pain. Except as documented, all other systems were reviewed and are negative. [facility] Past Medical History Medical History Anemia Emphysema lung Essential hypertension Metastatic non-small cell lung cancer (06/2020) Pericardial effusion with cardiac tamponade Effusion drained on 08/17/20. Pericardial window at [facility] 09/23/2020. Pulmonary embolism Right adrenal mass Tobacco abuse Reportedly quit smoking on 08/07/2020. Surgical History Surgical History (Updated 09/29/20 @ 23:21 by June Rivera PA-C) History of arthroscopic surgery of shoulder Removal of bone spurs from the AC joint. History of bunionectomy of right great toe History of dilation and curettage History of hysterectomy Status post creation of pericardial window (09/24/20) [place] teeth removed Family History Family History Grandparent Malignant neoplasm of prostate Grandparent Diabetes mellitus Father Acute myocardial infarction Mother Gastric disease Other Pulmonary embolism Social History Social History (Updated 09/29/20 @ 22:25 by June Rivera PA-C) Social History: Surrogate decision make
[2020-09-29] MEDS: MORPHINE SULFATE (*CRX) 2 MG/ML INJ IV PUSH (22:03)
[2020-09-29 22:15] LABS: Alanine Aminotransferase 23 U/L (4-35); Albumin Level 3.4 g/dL (3.5-5.1); Alkaline Phosphatase 92 U/L (38-126); Anion Gap 10 mmol/L (8-16); Aspartate Amino Transferase 50 U/L (14-36); Bilirubin,Total 0.3 mg/dL (0.2-1.3); Blood Urea Nitrogen 8 mg/dL (7-17); Calcium 8.7 mg/dL (8.4-10.2); Carbon Dioxide 31 mmol/L (22-30); Chloride 79 mmol/L (98-107); Estimated CRCL calculation 71 ml/min; Estimated Glomerular Filt Rate > 60; Glucose 160 mg/dL (65-105); Magnesium 1.4 mg/dL (1.6-2.3); Potassium 3.3 mmol/L (3.4-5.0); Sodium 120 mmol/L (137-145)
[2020-09-30] VITALS (17 sets, daily range): BP systolic 122–144; BP diastolic 70–87; PULSE 92–99; RESP 16–18; TEMP 36.1–36.8; O2SAT 96–100
[2020-09-30] MEDS: MAGNESIUM SULF 2 GM/WATER 50ML 2 GM/50 ML BAG IVPB (00:09)
[2020-09-30] MEDS: POTASSIUM CHLORIDE 20 MEQ TABLET 40 MEQ PO (00:09)
[2020-09-30] MEDS: MORPHINE SULFATE (*CRX) 2 MG/ML INJ IV PUSH ×5 (02:11→22:05)
[2020-09-30] MEDS: ALBUTEROL SULFATE (*SP) AEROSOL 1 PUFF 2 PUFF INHALATION (02:12)
[2020-09-30 05:41] LABS: Hematocrit 24.6 % (37.0-47.0); Hemoglobin 8.3 g/dL (12.0-15.0); Mean Corpuscular HGB Conc 33.7 g/dl (32-36); Mean Corpuscular Hemoglobin 30.5 pg (26-34); Mean Corpuscular Volume 90.4 fl (80-100); Mean Platelet Volume 9.5 fl (7.4-10.4); Platelet Count Result 411 k/mm3 (150-375); Red Blood Count 2.72 M/mm3 (4.2-5.4); Red Cell Distribution Width 13.6 % (11.5-14.5); White Blood Count 8.9 K/mm3 (4.5-10.0)
[2020-09-30 06:37] LABS: Anion Gap 5 mmol/L (8-16); Blood Urea Nitrogen 7 mg/dL (7-17); Calcium 8.8 mg/dL (8.4-10.2); Carbon Dioxide 33 mmol/L (22-30); Chloride 81 mmol/L (98-107); Estimated CRCL calculation 81 ml/min; Estimated Glomerular Filt Rate > 60; Glucose 146 mg/dL (65-105); Magnesium 1.9 mg/dL (1.6-2.3); Sodium 119 mmol/L (137-145)
--- NOTE | 2020-09-30 07:04 | PM.CNNEP ---
Assessment and Plan Assessment and plan (1) Hyponatremia: Code(s): E87.1 - Hypo-osmolality and hyponatremia Status: Acute Assessment and Plan: the patient has a low sodium. Looking back in the records are sodium was mildly low for the last couple of months but nothing like it is now. She has several issues that might contribute to a low sodium. This includes her bronchogenic carcinoma. She is pre renal as her urine sodium is very low. She is on diuretics. She is on tramadol. Things the cause low sodium include: Meds like narcotics diuretics an antidepressant, cancer, lung processes like COPD and large volume changing processes, and BALANCE WEIGHER lesions like large strokes or tumors. Dehydration can do this as well. Her TSH is okay. Her cortisol level is okay. She has a adrenal mass but this is not interfering with her adrenal function it seems at least from the glucocorticoid standpoint. She is not on any antidepressants. That was point will check serum and urine osmolality. These were already drawn. Will check a serum protein electrophoresisn to rule out pseudo hyponatremia from a high-protein standpoint. Will continue fluid restriction of 800cc per day. The patient has pleural effusions and swelling. We can try salt tablets and diuretics to see if we can decrease her fluid burden but bring the sodium level up at the same time. (2) Pericardial effusion: Code(s): I31.3 - Pericardial effusion (noninflammatory) Status: Acute Assessment and Plan: The patient had a pericardial window. Cardiology is on the case. (3) COPD (chronic obstructive pulmonary disease): Code(s): J44.9 - Chronic obstructive pulmonary disease, unspecified Status: Acute Assessment and Plan: The patient has a history of heavy smoking use. Is on inhalers. (4) Metastatic non-small cell lung cancer: Onset Date: 06/2020 Code(s): C34.90 - Malignant neoplasm of unspecified part of unspecified bronchus or lung Status: Acute Assessment and Plan: Dr.. Desai is on the case and giving chemotherapy. (5) Pulmonary embolism: Qualifiers: Pulmonary embolism type: single subsegmental (without acute cor pulmonale) Qualified Code(s): I26.93 - Single subsegmental pulmonary embolism without acute cor pulmonale Code(s): I26.99 - Other pulmonary embolism without acute cor pulmonale Status: Acute Assessment and Plan: The patient is on Eliquis. (6) Right adrenal mass: Code(s): E27.8 - Other specified disorders of adrenal gland Status: Acute History of Present Illness Reason for Consult Consult date: 09/30/20 Chief Complaint Chief complaint: Pleural effusion/pericardial effusion/lung cancer History of Present Illness Narrative: Elaina is a very pleasant 50-year-old with multiple medical problems including lung cancer on chemotherapy, malignant pericardial effusion status post window earlier this month at [facility], hypertension which has not needed treatment since she has had the pericardial effusion, reversible airways disease, GERD on PPI, edema, and now hyponatremia. Patient has been in the hospital a couple of times over last month dealing with a pericardial effusion. Ultimately she had a window placed and she was discharged 2 days before this admission. Since discharge the patient has not felt very well. She has had shortness of breath and a feeling that she can't take a deep breath. She also is having back pain between her scapulae. She had had nausea and vomiting while at [facility] however she did not have any of this at home. She has been eating fairly well at home but not great. She has been drinking lots of fluid to keep her urine output going for the chemotherapy. She has been taking tramadol at home for her back pain. She has been on furosemide at home as well treating the edema. she does not take any
[2020-09-30] MEDS: POTASSIUM CHLORIDE 20 MEQ TABLET.ER PO ×2 (08:05→16:04)
[2020-09-30] MEDS: guaiFENesin 12 HR 600 MG TABCR PO ×2 (08:05→16:04)
[2020-09-30] MEDS: FUROSEMIDE 20 MG TABLET PO ×3 (08:06→21:01)
[2020-09-30] MEDS: FOLIC ACID 1 MG TABLET PO (08:06)
[2020-09-30] MEDS: DOCUSATE SODIUM 100 MG CAPSULE PO (08:06)
[2020-09-30] MEDS: CYANOCOBALAMIN 1,000 MCG TABLET 1000 MCG BY MOUTH (08:06)
[2020-09-30] MEDS: SODIUM CHLORIDE 1 GM TABLET PO ×3 (08:06→21:01)
[2020-09-30] MEDS: APIXABAN 5 MG TABLET 10 MG PO ×2 (08:06→16:04)
[2020-09-30] MEDS: PANTOPRAZOLE 40 MG TABLET PO (08:06)
[2020-09-30] MEDS: FERROUS SULFATE 324 MG TABLET PO (08:06)
[2020-09-30] MEDS: ALBUTEROL SULFATE (*SP) INHALER 2 PUFF INHALATION ×4 (08:10→22:05)
[2020-09-30] MEDS: traMADol HCL (*CRX) 50 MG TABLET PO ×2 (08:19→21:01)
--- NOTE | 2020-09-30 08:50 | PM.CNCAR ---
Assessment and Plan Assessment and plan (1) Malignant pericardial effusion: Code(s): I31.3 - Pericardial effusion (noninflammatory); C80.1 - Malignant (primary) neoplasm, unspecified Status: Acute Assessment and Plan: s/p pericardiocentesis and subsequently pericardial window last week Per op report of the pericardial window significant adhesions and loculated effusion noted however all fluids were drained. Will repeat limited echo to rule out loculated effusion. Will also assess LV/RV function and PA presser in the setting of recent PE (2) Shortness of breath: Code(s): R06.02 - Shortness of breath Status: Acute Assessment and Plan: Multifactorial with lung cancer, PE, pleural effusions and possible COPD Check limited echo as above. She was started on lasix on Tuesday however her Na now is remarkable low. Appreciate nephrology input. Pulmonary consult (3) Metastatic non-small cell lung cancer: Onset Date: 06/2020 Code(s): C34.90 - Malignant neoplasm of unspecified part of unspecified bronchus or lung Status: Acute Assessment and Plan: management per oncology History of Present Illness History of Present Illness Consult date/time: 09/30/20 08:50 50 y/o with no significant past medical history up until July of this year when she was diagnosed with lung cancer. She was initially found to have lung lesion and underwent non diagnostic biopsy, subsequently presented with pericardial tamponade and underwent pericardiocentesis which confirmed malignant effusion and diagnosis of adenocarcinoma of the lung was made. She was also found to have small PE. She presented last week with dyspnea and was found to have reaccumulation of pericardial fluids and also CT showed pleural effusion and worsening of pulmonary embolism compared to prior study. She. was transferred to [facility] where she underwent pericardial window by CT surgery on 09/24/20 . At that time she also had chest tube for left pleura effusion. She was discharged 2 days ago on Eliquis 10 mg BID and lasix 40 mg daily (both were new medications for her). She returns now again with dyspnea. She reports dyspnea on minimal exertion as well as laying flat. Chest X ray shows bilateral pleural effusions worse on the left. enlarged cardiac silhouette was also noted per radiology report and felt could be due to pericardial effusion. Labs were notable for Na of 119. Creatinine is 0.6. Hg 8.3. EKG shows sinus tachycardia at HR [address] changes She quit smoking at the time of diagnosis of cancer in July. Reason For Visit: Pleural effusion/pericardial effusion/lung cancer Review of Systems Review of Systems: All systems reviewed & are unremarkable except as noted in HPI and below Constitutional: Constitutional: Denies fatigue and Denies headache(s) Eyes: Eyes: Denies blurry vision ENT: Reports Normal hearing present and Denies headache(s) Cardiovascular: Cardiovascular: Denies chest pain, Denies diaphoresis, Denies pedal edema, Denies leg edema, Denies lightheadedness, Denies palpitations and Denies dyspnea Respiratory: Respiratory: Denies cough and Denies dyspnea Gastrointestinal: Gastrointestinal: Denies abdominal pain Musculoskeletal: Musculoskeletal: Denies back pain Neurologic: Reports Normal hearing present and Denies headache(s) Psychiatric: Psychiatric: Denies anxiety Endocrine: Endocrine: Denies fatigue and Denies palpitations PMFSH Past Medical History Medical History Anemia Emphysema lung Essential hypertension Metastatic non-small cell lung cancer (06/2020) Pericardial effusion with cardiac tamponade Effusion drained on 08/17/20. Pericardial window at [facility] 09/23/2020. Pulmonary embolism Right adrenal mass Tobacco abuse Reportedly quit smoking on 08/07/2020. Surgical History Surgical History (Reviewed
--- NOTE | 2020-09-30 09:06 | ECHOL_ITS ---
Patient Info Name: Elaina Mora Age: 50 years : 1970 Gender: Female Ht: 64 in Wt: 145 lbs BSA: 1.73 m2 HR: 92 bpm BP: 135 / 85 mmHg Technical Quality: Good Exam Date: 09/30/2020 2:29 PM Exam Location: [facility] Pulmonary Patient Status: Inpatient Admit Date: 09/29/2020 Staff Ordering Physician: Yelena Her MD (vicki) Electrologist: Suzi Arevalo RDCS Attending Provider: Janina Naik MD Exam Type: CA echo limited Study Info Indications - PERICARDIAL EFFUSION Limited two-dimensional transthoracic echocardiogram is performed. Summary 1. Left ventricular systolic function is normal, estimated at 55-60%. 2. Right ventricular systolic function is reduced. 3. Right ventricular chamber dimension is mildly enlarged. 4. Left ventricular septal wall motion is abnormal. 5. Mild pulmonary hypertension, estimated pulmonary arterial systolic pressure is 42 mmHg. 6. There is small circumferential pericardial effusion. Left Ventricle Left ventricular chamber dimension is normal. Left ventricular systolic function is normal, estimated at 55-60%. There is no increased left ventricular wall thickness. Left ventricular septal wall motion is abnormal. The left ventricular diastolic function is normal. Right Ventricle Right ventricular chamber dimension is mildly enlarged. Right ventricular systolic function is reduced. Ventricular Septum PARADOXICAL septal motion due to right ventricular pressure and volume overload. Left Atria Left atrial chamber dimension is normal. Right Atria Right atrial chamber dimension is normal. Aortic Valve The aortic valve is trileaflet. There is no aortic valve sclerosis. There is no aortic valve stenosis. There is no aortic valve regurgitation. Pulmonic Valve The pulmonic valve is normal. There is no pulmonic valve stenosis. There is no pulmonic regurgitation. Mitral Valve The mitral valve has normal leaflets. There is no mitral valve stenosis. There is no mitral valve regurgitation. Tricuspid Valve The tricuspid valve leaflets are normal. There is no significant tricuspid valve stenosis. There is mild tricuspid valve regurgitation. Mild pulmonary hypertension, estimated pulmonary arterial systolic pressure is 42 mmHg. Other Findings Large pleural effusion noted on the left side. Pericardium/Pleural The pericardium appears increased echogenicity of the pericardium. There is small circumferential pericardial effusion. Significant echodensity noted throughout the pericardium indicative of metastatic disease to the pericardial space. Inferior Vena Cava Normal inferior vena cava with >50% collapse upon inspiration consistent with elevated right atrial pressure, 15 mmHg. Aorta The aortic root size at the sinus of Valsalva is normal. The prox ascending aorta size is normal. Pulmonic Valve Name Value Normal RVOT Doppler RVOT Peak Gradient 1 mmHg PV Doppler PV Peak Gradient 1 mmHg Tricuspid Valve Name Valu
--- NOTE | 2020-09-30 11:56 | P.PNIM_ITS ---
Progress Note: A&P Assessment and Plan (1) Shortness of breath: Code(s): R06.02 - Shortness of breath Status: Acute Assessment and Plan: * Likely multifactorial in etiology: Large right upper lobe lung mass, collapse of the right upper lobe, pleural effusions and pulmonary emboli. * Pericardial effusion was only mild on echocardiogram today. * Echo showed normal function with an EF of 60-65% * Pulmonology on board thank you for recommendations * Albuterol PRN * Lasix 20mg PO q8hr * Strict I&O * Fluid restriction 800ml daily * Heart healthy diet * Supplemental oxygen to maintain saturations above 88% (2) Hyponatremia: Code(s): E87.1 - Hypo-osmolality and hyponatremia Status: Acute Assessment and Plan: * Multiple episodes of vomiting over the last few days * Probably fluid overloaded * 2-3+ pitting edema in the bilateral lower extremities * NA is 119, urine sodium <5, Urine osmolality pending, BNP 2690 on 09/29/20 * Dr. Bonner is consulted thank you for recommendations * Sodium tabs 1gm PO Q8hr * Fluid restriction 800ml daily * Lasix 20mg PO Q8hr * Trend sodium * Labs in the AM (3) Bilateral pleural effusion: Code(s): J90 - Pleural effusion, not elsewhere classified Status: Acute Assessment and Plan: * Unable to drain due to size * Furosemide 20mg PO Q8hr * Pulmonology consult * Supplemental oxygen * Wonder if IS would help (4) Lung cancer: Qualifiers: Laterality: right Lung location: upper lobe of lung Qualified Code(s): C34.11 - Malignant neoplasm of upper lobe, right bronchus or lung Code(s): C34.90 - Malignant neoplasm of unspecified part of unspecified bronchus or lung Status: Acute Assessment and Plan: * Patient of Dr. Desai, due for chemotherapy * Dr. Desai consulted * To be managed by oncology (5) Malignant pericardial effusion: Code(s): I31.3 - Pericardial effusion (noninflammatory); C80.1 - Malignant (primary) neoplasm, unspecified Status: Acute Assessment and Plan: * Status post pericardial window at [facility] on 09/24/2020. * Limited echo showed mild pericardial effusion. * Dr. Her consulted for cardiology thank you for recommendations (6) Anemia: Qualifiers: Anemia type: unspecified type Qualified Code(s): D64.9 - Anemia, unspecified Code(s): D64.9 - Anemia, unspecified Status: Acute Assessment and Plan: * Hemoglobin and hematocrit are stable 8.3/24.6 * Could be a part of the shortness of breath as well * Could be dilutional from fluid overload * Trend H/H * Transfuse if needed * Labs in the AM * Continue Ferrous sulfate 325mg PO daily Time Spent With Patient Time with patient: 25 - 35 minutes Subjective Date/time seen: 09/30/20 11:56 Patient is a 50-year-old female with a past medical history of anemia, emphysema, and small cell carcinoma Who presented to the ED for shortness of breath. Recently patient had pericardial window performed at [facility]. Chest x-ray did show the patient has a large left-sided plural effusion. Patient also has a very low sodium at 119. Patient stated that she is feeling a lot better today however had some concerns about her urination pattern. Patient stated that she has abnormal swelling in her bilateral lower extremities, and that she felt like she was not urinating as much as she did
--- NOTE | 2020-09-30 11:56 | PM.IMPN ---
Progress Note: A&P Assessment and Plan (1) Shortness of breath: Code(s): R06.02 - Shortness of breath Status: Acute Assessment and Plan: Likely multifactorial in etiology: Large right upper lobe lung mass, collapse of the right upper lobe, pleural effusions and pulmonary emboli. Pericardial effusion was only mild on echocardiogram today. Echo showed normal function with an EF of 60-65% Pulmonology on board thank you for recommendations Albuterol PRN Lasix 20mg PO q8hr Strict I&O Fluid restriction 800ml daily Heart healthy diet Supplemental oxygen to maintain saturations above 88% (2) Hyponatremia: Code(s): E87.1 - Hypo-osmolality and hyponatremia Status: Acute Assessment and Plan: Multiple episodes of vomiting over the last few days Probably fluid overloaded 2-3+ pitting edema in the bilateral lower extremities NA is 119, urine sodium <5, Urine osmolality pending, BNP 2690 on 09/29/20 Dr. Bonner is consulted thank you for recommendations Sodium tabs 1gm PO Q8hr Fluid restriction 800ml daily Lasix 20mg PO Q8hr Trend sodium Labs in the AM (3) Bilateral pleural effusion: Code(s): J90 - Pleural effusion, not elsewhere classified Status: Acute Assessment and Plan: Unable to drain due to size Furosemide 20mg PO Q8hr Pulmonology consult Supplemental oxygen Wonder if IS would help (4) Lung cancer: Qualifiers: Laterality: right Lung location: upper lobe of lung Qualified Code(s): C34.11 - Malignant neoplasm of upper lobe, right bronchus or lung Code(s): C34.90 - Malignant neoplasm of unspecified part of unspecified bronchus or lung Status: Acute Assessment and Plan: Patient of Dr. Desai, due for chemotherapy Dr. Desai consulted To be managed by oncology (5) Malignant pericardial effusion: Code(s): I31.3 - Pericardial effusion (noninflammatory); C80.1 - Malignant (primary) neoplasm, unspecified Status: Acute Assessment and Plan: Status post pericardial window at [facility] on 09/24/2020. Limited echo showed mild pericardial effusion. Dr. Her consulted for cardiology thank you for recommendations (6) Anemia: Qualifiers: Anemia type: unspecified type Qualified Code(s): D64.9 - Anemia, unspecified Code(s): D64.9 - Anemia, unspecified Status: Acute Assessment and Plan: Hemoglobin and hematocrit are stable 8.3/24.6 Could be a part of the shortness of breath as well Could be dilutional from fluid overload Trend H/H Transfuse if needed Labs in the AM Continue Ferrous sulfate 325mg PO daily Time Spent With Patient Time with patient: 25 - 35 minutes Subjective Date/time seen: 09/30/20 11:56 Patient is a 50-year-old female with a past medical history of anemia, emphysema, and small cell carcinoma Who presented to the ED for shortness of breath. Recently patient had pericardial window performed at [facility]. Chest x-ray did show the patient has a large left-sided plural effusion. Patient also has a very low sodium at 119. Patient stated that she is feeling a lot better today however had some concerns about her urination pattern. Patient stated that she has abnormal swelling in her bilateral lower extremities, and that she felt like she was not urinating as much as she did yesterday. I talked to the patient about how yesterday she was getting 40 mg of p.o. Lasix while today she is only getting 20. Patient also stated that her pain is better controlled today and that she does not have any after getting pain medication. Patient also stated that the shortness of breath was better and that she does have any nausea or vomiting at the time. Patient also stated that she has had a bowel movement since admission. Patient stated that her chest feels tight however in feels as that h
--- NOTE | 2020-09-30 13:05 | PDONCCN ---
HPI - Date of Consult Date/Time: 09/30/20 13:06 Requesting Physician: Janina Naik MD Primary Care Provider: John Goodson, DO - Consult Narrative Reason for consult: Metastatic non-small cell lung cancer Narrative: Elaina Mora is a 50 year old female This is the 50-year-old pleasant female diagnosed with metastatic non-small cell lung cancer and has received 1st round of chemotherapy with carboplatin and Alimta and Keytruda on September 14, 2020. She had pericardial window performed on September 24 at [facility] due to malignant effusion. She also had right-sided thoracentesis done during that hospitalization. She felt better after the pericardial window performed initially but started having more shortness of breath and lung with nausea afterwards. She was also diagnosed to have pulmonary embolism and was started on Eliquis 10 mg twice a day. She denies any bleeding including melena hematochezia. She has been complaining of tiredness and fatigue and some dyspnea. Her labs showed hemoglobin of 8.3. She also developed hyponatremia with sodium of 119. She denies any fevers and chills. No other new complaints. Review of Systems - Review of Systems All systems reviewed & are unremarkable except as noted in HPI and bel - Neurologic Reports system reviewed and no additional complaints, except as documented, Reports hearing normal, Denies headache(s) [facility] Medical History: Medical History (Last Reviewed 09/30/20 @ 07:07 by Jc Bonner MD) Anemia Emphysema lung Essential hypertension Metastatic non-small cell lung cancer Onset Date: 06/2020 Pericardial effusion with cardiac tamponade Effusion drained on 08/17/20. Pericardial window at [facility] 09/23/2020. Pulmonary embolism Right adrenal mass Tobacco abuse Reportedly quit smoking on 08/07/2020. Surgical History: Surgical History (Last Reviewed 09/30/20 @ 07:07 by Jc Bonner MD) History of arthroscopic surgery of shoulder Removal of bone spurs from the AC joint. History of bunionectomy of right great toe History of dilation and curettage History of hysterectomy Status post creation of pericardial window Onset Date: 09/24/20 [place] teeth removed Family History: Family History (Last Reviewed 09/30/20 @ 07:07 by Jc Bonner MD) Grandparent Malignant neoplasm of prostate Grandparent Diabetes mellitus Father Acute myocardial infarction Mother Gastric disease Other Pulmonary embolism - Social History Social History: Social History (Last Reviewed 09/30/20 @ 07:07 by Jc Bonner MD) Gender Identity: Gender identity (if verbalized by the patient): Female Alcohol Use: Alcohol intake: current Drinks per week: 3 Substance Use: Substance use: never Substance use type: does not use Others: Spiritual care concerns: No Smoking Status: Smoking status: Former smoker Second hand tobacco smoke exposure: No Smoking Pack-years: Smoking packs per day: 1 Smoking cigarettes per day: 20.0 Years smoked: 25 Smoking pack-years: 25.00 Meds Home Medications Medication Instructions Recorded Confirmed Type cyanocobalamin (vitamin B-12) 1,000 mcg SUBLINGUAL DAILY 09/12/20 09/29/20 History [Vitamin B-12] ferrous sulfate 325 mg PO DAILY 09/12/20 09/29/20 History folic acid 1 mg PO DAILY 09/12/20 09/29/20 History ondansetron 8 mg PO Q8H PRN 09/12/20 09/29/20 History albuterol sulfate 90 mcg/actuation 2 inh INHALATION Q4H PRN #6.7 g 09/16/20 09/29/20 Rx aerosol inhaler tiotropium bromide 2.5 2 puff INHALATION DAILY #4 g 09/16/20 09/29/20 Rx mcg/actuation mist for inhalation apixaban [Eliquis] 10 mg PO BID 09/29/20 09/29/20 History benzonatate 100 mg PO Q8H PRN 09/29/20 09/29/20 History docusate sodium 100 mg PO Q12H 09/29/20 09/29/20 History furosemide 40 mg PO BID 09/29/20 09/29/20 History guaifenesin 600 mg P
--- NOTE | 2020-09-30 13:08 | PM.CNPUL ---
Assessment and Plan Assessment and plan (1) Bilateral pleural effusion: Code(s): J90 - Pleural effusion, not elsewhere classified Status: Acute Assessment and Plan: Patient with a history of lung cancer with a malignant pericardial effusion status post pericardial window and now small bilateral pleural effusions left greater than right. patient also has a history of pulmonary emboli on Eliquis. Most recent chest x-ray was from 09/29 and I will repeat a chest x-ray to assess the size of the pleural effusions. The left pleural oral effusion is expected given her recent pericardial window and right pleural effusion is likely to rated related to her right lung cancer. Of note patient also has a elevated BNP with peripheral edema and fluid overload may also be contributing to these pleural effusions. At this time I do not think there is an active infection and/or empyema and do not recommend antibiotics. Patient is to have a formal echocardiogram, she is being diuresed and Cardiology is following her. she had lower extremity Dopplers on 09/22 which were negative for DVT and I will repeat those at this time. I discussed the case with Dr. Desai And if the patient develops larger pleural effusion she will need to be evaluated for possible pleurodesis or a PleurX catheter neither of which can be perfomred at [facility]. History of Present Illness History of Present Illness Consult date: 09/30/20 Reason for consult: pleural effusion Chief complaint: Pleural effusion/pericardial effusion/lung cancer Narrative: This is a new pulmonary consult for pleural effusion is a 50-year-old with a history of lung cancer diagnosed with pericardial fluid aspirate on 08/17/2020 with an associated right upper lobe lung mass. patient was also diagnosed with pulmonary embolism and is being treated with Eliquis. Patient has undergone 1 cycle of chemotherapy through her oncologist Dr. Desai. Patient eventually had a pericardial window at [facility] admitted on 09/24 and discharged on 09/27. Patient states that when she left the hospital she was still fatigued and shortness of with shortness of breath. Patient was discharged on 2 L nasal cannula oxygen. On 09/28 patient said the that her shortness of breath had increased and she also had some sputum with blood streaks. Patient denied fever, chills, rigors, cough, purulence secretions or chest pains. On 09/29 the hemoptysis decreased but her shortness of breath persisted and she developed lower extremity edema. She presented to the emergency department and Was found to have a white blood cell count of 7.5, BNP 2690, and treated with lasix. 09/30 I was consulted. Patient states she is improved today. No hemoptysis. WBC 8.9K. denies fever, chills, rigors, cough, phlegm production. Patient is on 1.5 L nasal cannula with saturations 96-100%. DATA: EXAMINATION: CTA chest PE protocol, DATE: 09/22/2020 10:42 COMPARISON: Chest CT 08/17/2020 FINDINGS: There is a 5.8 x 5.8 cm mass with central cavitation in right lung upper lobe. There is partial collapse of right upper lobe. There is smooth septal thickening in the lungs, consistent with mild pulmonary edema. There is mild atelectasis in left lung. There are moderate-sized pleural effusions. There is a moderate-sized pericardial effusion with pericardial thickening. There is mass effect on the heart. There is a right internal jugular port with tip in right atrium. There is a right hilar and paratracheal lymphadenopathy with stenosis of perihilar right pulmonary arteries. There are acute emboli in right lower lobe, right middle lobe, and left lower lobe pulmonary arteries. There is moderate thoracic spondylosis. There are chronic compression fractures of T9 and T11. IMPRESSION: 1. Acute pulmonary emboli in the lower lobes and right middle lobe with mildly worsened distribution from 08/17/20.
[2020-09-30] MEDS: SODIUM CHLORIDE 0.9% IV 250 ML 30 ML IV CONT (13:41)
[2020-09-30 16:26] LABS: Sodium 122 mmol/L (137-145)
[2020-10-01] VITALS (13 sets, daily range): BP systolic 132–136; BP diastolic 70–84; PULSE 85–101; RESP 18–20; TEMP 36.2–36.4; O2SAT 85–99
[2020-10-01] MEDS: MORPHINE SULFATE (*CRX) 2 MG/ML INJ IV PUSH ×3 (02:16→11:11)
[2020-10-01] MEDS: ALBUTEROL SULFATE (*SP) INHALER 2 PUFF INHALATION ×3 (02:17→10:26)
[2020-10-01] MEDS: FUROSEMIDE 20 MG TABLET PO ×2 (05:16→14:33)
[2020-10-01] MEDS: SODIUM CHLORIDE 1 GM TABLET PO ×2 (05:16→14:33)
[2020-10-01 05:33] LABS: Hematocrit 29.9 % (37.0-47.0); Mean Corpuscular HGB Conc 33.4 g/dl (32-36); Mean Corpuscular Hemoglobin 30.3 pg (26-34); Mean Corpuscular Volume 90.6 fl (80-100); Platelet Count Result 412 k/mm3 (150-375); Red Cell Distribution Width 13.9 % (11.5-14.5); White Blood Count 11.5 K/mm3 (4.5-10.0)
[2020-10-01 05:47] LABS: Alanine Aminotransferase 24 U/L (4-35); Albumin Level 3.3 g/dL (3.5-5.1); Alkaline Phosphatase 88 U/L (38-126); Anion Gap 11 mmol/L (8-16); Aspartate Amino Transferase 44 U/L (14-36); Bilirubin,Total 0.2 mg/dL (0.2-1.3); Blood Urea Nitrogen 7 mg/dL (7-17); Calcium 8.9 mg/dL (8.4-10.2); Carbon Dioxide 29 mmol/L (22-30); Chloride 85 mmol/L (98-107); Estimated CRCL calculation 71 ml/min; Estimated Glomerular Filt Rate > 60; Glucose 197 mg/dL (65-105); Magnesium 1.7 mg/dL (1.6-2.3); Phosphorus 3.4 mg/dL (2.5-4.5); Potassium 4.3 mmol/L (3.4-5.0); Sodium 125 mmol/L (137-145)
--- NOTE | 2020-10-01 06:31 | PM.PNNEP ---
Progress Note: A&P Assessment and Plan (1) Hyponatremia: Code(s): E87.1 - Hypo-osmolality and hyponatremia Status: Acute Assessment and Plan: the patient has a low sodium. Urine sodium is low. Osmolalities are pending cortisol and TSH are okay will check a CT of the head to be complete This is most likely related to the cancer, diuretics, and tramadol. currently she is on fluid restriction, Lasix and salt tabs. 6/1 Na 119 6/2 Na 125 Sodium correction is at a good rate. Patient also has edema. This is improved compared to yesterday. (2) Pericardial effusion: Code(s): I31.3 - Pericardial effusion (noninflammatory) Status: Acute Assessment and Plan: The patient had a pericardial window. Cardiology is on the case. (3) COPD (chronic obstructive pulmonary disease): Code(s): J44.9 - Chronic obstructive pulmonary disease, unspecified Status: Acute Assessment and Plan: The patient has a history of heavy smoking use. Is on inhalers. (4) Metastatic non-small cell lung cancer: Onset Date: 06/2020 Code(s): C34.90 - Malignant neoplasm of unspecified part of unspecified bronchus or lung Status: Acute Assessment and Plan: Dr.. Desai is on the case and giving chemotherapy. (5) Pulmonary embolism: Qualifiers: Pulmonary embolism type: single subsegmental (without acute cor pulmonale) Qualified Code(s): I26.93 - Single subsegmental pulmonary embolism without acute cor pulmonale Code(s): I26.99 - Other pulmonary embolism without acute cor pulmonale Status: Acute Assessment and Plan: The patient is on Eliquis. (6) Right adrenal mass: Code(s): E27.8 - Other specified disorders of adrenal gland Status: Acute Subjective Date/time seen: 10/01/20 06:31 Interval history: Elaina is feeling better today. Eating okay. Review of Systems Cardiovascular: Cardiovascular: Reports no additional cardiovascular complaints Respiratory: Respiratory: Reports no additional respiratory complaints Gastrointestinal: Gastrointestinal: Reports no additional gastrointestinal complaints Genitourinary: Genitourinary: Reports no additional female genitourinary complaints Exam Narrative: Exam Narrative: WDWN in NAD skin no rash head ncat lungs clear cor reg no rub abd BS+ nontender and soft ext 1+ bilateral edema. Objective Data Vital Signs Vital Signs: Vital Signs - 24 hr 09/30/20 08:00 09/30/20 09:00 09/30/20 12:00 Temperature Pulse Rate 96 96 Respiratory Rate Blood Pressure Pulse Oximetry 100 96 09/30/20 14:00 09/30/20 16:00 09/30/20 16:30 Temperature 36.6 C 36.6 C Pulse Rate 92 97 96 Respiratory Rate 18 18 Blood Pressure 127/79 144/87 H Pulse Oximetry 97 99 09/30/20 16:45 09/30/20 16:47 09/30/20 17:45 Temperature 36.5 C 36.6 C 36.6 C Pulse Rate 93 96 94 Respiratory Rate 17 18 18 Blood Pressure 129/70 144/87 H 139/84 Pulse Oximetry 99 99 100 09/30/20 18:45 09/30/20 19:20 09/30/20 19:53 Temperature 36.1 C L 36.1 C L Pulse Rate 97 98 Respiratory Rate 16 18 Blood Pressure 122/75 141/80 H 141/80 H Pulse Oximetry 97 99 09/30/20 20:00 09/30/20 21:00 10/01/20 00:00 Temperature Pulse Rate 96 92 Respiratory Rate Blood Pressure Pulse Oximetry 99 10/01/20 04:00 10/01/20 05:49 Temperature 36.4 C Pulse Rate 101 H 97 Respiratory Rate 20 Blood Pressure 132/70 Pulse Oximetry 99 Intake/Output Intake/Output: Intake & Output 09/28/20 09/29/20 09/30/20 10/01/20 23:59 23:59 23:59 23:59 Intake Total 380 1360 Output Total 250 1400 900 Balance 130 -40 -900 Meds/Results Medications: Active Medications Generic Name Dose Route Start Last Admin Trade Name Freq PRN Reason Stop Dose Admin Albuterol 2 puff 09/30/20 06:56 10/01/20 06:24 Albuterol Sulfate (*Sp) Inhaler INHALATION 2 puff Q4
[2020-10-01] MEDS: APIXABAN 5 MG TABLET 10 MG PO (08:05)
[2020-10-01] MEDS: guaiFENesin 12 HR 600 MG TABCR PO (08:06)
[2020-10-01] MEDS: PANTOPRAZOLE 40 MG TABLET PO (08:06)
--- NOTE | 2020-10-01 08:39 | PM.PNPUL ---
Progress Note: A&P Assessment and Plan (1) Bilateral pleural effusion: Code(s): J90 - Pleural effusion, not elsewhere classified Status: Acute Assessment and Plan: 09/30 Patient with a history of lung cancer with a malignant pericardial effusion status post pericardial window and now small bilateral pleural effusions left greater than right. patient also has a history of pulmonary emboli on Eliquis. Most recent chest x-ray was from 09/29 and I will repeat a chest x-ray to assess the size of the pleural effusions. The left pleural oral effusion is expected given her recent pericardial window and right pleural effusion is likely to rated related to her right lung cancer. Of note patient also has a elevated BNP with peripheral edema and fluid overload may also be contributing to these pleural effusions. At this time I do not think there is an active infection and/or empyema and do not recommend antibiotics. Patient is to have a formal echocardiogram, she is being diuresed and Cardiology is following her. she had lower extremity Dopplers on 09/22 which were negative for DVT and I will repeat those at this time. I discussed the case with Dr. Desai And if the patient develops larger pleural effusion she will need to be evaluated for possible pleurodesis or a PleurX catheter neither of which can be performed at [facility]. 10/01 Continued slow improvement in SOB. No evidence of infection. Patient is on 1.5 L nasal cannula with saturations 96-100%. CXR no change in small R and small to moderate L effusions. Patient had a home O2 assessment today that demonstrating rest room air oxygen saturation measured by pulse oximetry was 94%. With exercise on room air saturations 85, with exercise on 1 L saturations 86%, with exercise on 2 L saturations 88% with exercise on 3 L nasal cannula oxygen saturation 90%. Patient requires no oxygen at rest and 3 L with activity. Will sign off, please call with any questions. Pulmonary clinic follow up already scheduled on 12/17 at 13:30. Subjective Date/time seen: 10/01/20 08:39 Interval history: Narrative: This is a new pulmonary consult for pleural effusion is a 50-year-old with a history of lung cancer diagnosed with pericardial fluid aspirate on 08/17/2020 with an associated right upper lobe lung mass. patient was also diagnosed with pulmonary embolism and is being treated with Eliquis. Patient has undergone 1 cycle of chemotherapy through her oncologist Dr. Desai. Patient eventually had a pericardial window at [facility] admitted on 09/24 and discharged on 09/27. Patient states that when she left the hospital she was still fatigued and shortness of with shortness of breath. Patient was discharged on 2 L nasal cannula oxygen. On 09/28 patient said the that her shortness of breath had increased and she also had some sputum with blood streaks. Patient denied fever, chills, rigors, cough, purulence secretions or chest pains. On 09/29 the hemoptysis decreased but her shortness of breath persisted and she developed lower extremity edema. She presented to the emergency department and Was found to have a white blood cell count of 7.5, BNP 2690, and treated with lasix. 09/30 I was consulted. Patient states she is improved today. No hemoptysis. WBC 8.9K. denies fever, chills, rigors, cough, phlegm production. Patient is on 1.5 L nasal cannula with saturations 96-100%. CXR no change in small R and small to moderate L effusions. 10/01 Patient states she is improved today, continued fatigue, with SOB being 50% back to normal. No hemoptysis. Afebrile, WBC 11.5K. Patient is on 1.5 L nasal cannula with saturations 99%. CXR no change in small R and small to moderate L effusions. Patient had a home O2 assessment today that demonstrating rest room air oxygen saturation measured by pulse oximetry was 94%. With exercise on room air saturations 85, with exercise on 1 L saturatio
[2020-10-01] MEDS: FERROUS SULFATE 324 MG TABLET PO (10:20)
[2020-10-01] MEDS: CYANOCOBALAMIN 1,000 MCG TABLET 1000 MCG BY MOUTH (10:20)
[2020-10-01] MEDS: FOLIC ACID 1 MG TABLET PO (10:20)
[2020-10-01] MEDS: POTASSIUM CHLORIDE 20 MEQ TABLET.ER PO (10:20)
[2020-10-01] MEDS: DOCUSATE SODIUM 100 MG CAPSULE PO (10:20)
--- NOTE | 2020-10-01 11:08 | PM.PNCARD ---
Progress Note: A&P Assessment and Plan (1) Malignant pericardial effusion: Code(s): I31.3 - Pericardial effusion (noninflammatory); C80.1 - Malignant (primary) neoplasm, unspecified Status: Acute Assessment and Plan: s/p pericardiocentesis and subsequently pericardial window last week Per op report of the pericardial window significant adhesions and loculated effusion noted. Limited echo now shows small probably even trace effusion that appears loculated (2) Shortness of breath: Code(s): R06.02 - Shortness of breath Status: Acute Assessment and Plan: Multifactorial with lung cancer, PE, pleural effusions and possible COPD Continue current dose of lasix with close monitoring of kidney function and hyponatermia (3) Metastatic non-small cell lung cancer: Onset Date: 06/2020 Code(s): C34.90 - Malignant neoplasm of unspecified part of unspecified bronchus or lung Status: Acute Assessment and Plan: management per oncology Subjective Date/time seen: 10/01/20 11:08 She feels better this morning. Denies chest pain. Shortness of breath is improving Review of Systems Review of Systems: All systems reviewed & are unremarkable except as noted in HPI and below Constitutional: Constitutional: Denies fatigue and Denies headache(s) Eyes: Eyes: Denies blurry vision ENT: Reports Normal hearing present and Denies headache(s) Cardiovascular: Cardiovascular: Denies chest pain, Denies diaphoresis, Denies pedal edema, Denies leg edema, Denies lightheadedness, Denies palpitations and Denies dyspnea Respiratory: Respiratory: Denies cough and Denies dyspnea Gastrointestinal: Gastrointestinal: Denies abdominal pain Musculoskeletal: Musculoskeletal: Denies back pain Neurologic: Reports Normal hearing present and Denies headache(s) Psychiatric: Psychiatric: Denies anxiety Endocrine: Endocrine: Denies fatigue and Denies palpitations Exam Narrative: Exam Narrative: in no resp distress. Normal S1, S2, No murmurs Decrease breathing sounds bilateral lung bases Const: General: no acute distress Eyes: Sclera: sclerae normal Neck: Neck: no JVD Carotids: no bruits Resp: Effort & Inspection: normal respiratory effort Auscultation: clear to auscultation bilaterally Cardio: Rate: regular rate and not tachycardic Rhythm: regular rhythm Heart sounds: no gallops, no murmurs and no rubs Skin: General skin exam: normal color Neuro: Cranial nerves: Yes Normal hearing present Speech: normal speech Extrem: General: normal to inspection and no edema Psych: Affect: normal affect Objective Data Vital Signs Vital Signs: Vital Signs - 24 hr 09/30/20 12:00 09/30/20 14:00 09/30/20 16:00 Temperature 36.6 C Pulse Rate 96 92 97 Respiratory Rate 18 Blood Pressure 127/79 Pulse Oximetry 97 09/30/20 16:30 09/30/20 16:45 09/30/20 16:47 Temperature 36.6 C 36.5 C 36.6 C Pulse Rate 96 93 96 Respiratory Rate 18 17 18 Blood Pressure 144/87 H 129/70 144/87 H Pulse Oximetry 99 99 99 09/30/20 17:45 09/30/20 18:45 09/30/20 19:20 Temperature 36.6 C 36.1 C L 36.1 C L Pulse Rate 94 97 98 Respiratory Rate 18 16 18 Blood Pressure 139/84 122/75 141/80 H Pulse Oximetry 100 97 99 09/30/20 19:53 09/30/20 20:00 09/30/20 21:00 Temperature Pulse Rate 96 Respiratory Rate Blood Pressure 141/80 H Pulse Oximetry 99 10/01/20 00:00 10/01/20 04:00 10/01/20 05:49 Temperature 36.4 C Pulse Rate 92 101 H 97 Respiratory Rate 20 Blood Pressure 132/70 Pulse Oximetry 99 Intake/Output Intake/Output: Intake & Output 09/28/20 09/29/20 09/30/20 10/01/20 23:59 23:59 23:59 23:59 Intake Total 380 1360 240 Output Total 250 1400 900 Balance 130 40 -660 Meds/Results Medications: Active Medications Generic Name Dose Route Start Last Admin Trade Name Freq PRN Reason Stop Dose Admin Albuterol 2 puff 09/30/20 06:56 10/01/20 10:
--- NOTE | 2020-10-01 11:27 | HOMEO2EVAL ---
Evaluation was performed at [facility] Home Oxygen Evaluation RC: Home Oxygen (O2) Evaluation Start: 10/01/20 08:44 Freq: ONCE Status: Active Protocol: RPE Activity Type Activity Date Activity User E-Sign Co-Sign Detail Recorded Client Recorded Date Recorded By Document 10/01/20 10:45 [email or web address] [email or web address] 10/01/20 11:27 DJO Document 10/01/20 10:50 [email or web address] [email or web address] 10/01/20 11:27 DJO Document 10/01/20 10:55 [email or web address] [email or web address] 10/01/20 11:27 DJO Document 10/01/20 11:00 [email or web address] [email or web address] 10/01/20 11:27 DJO Document 10/01/20 11:05 [email or web address] [email or web address] 10/01/20 11:27 DJO Document 10/01/20 11:15 [email or web address] [email or web address] 10/01/20 11:27 DJO 10/01/20 10/01/20 10/01/20 10:45 10:50 10:55 Home O2 Evaluation Test Phase Resting Exercise Exercise Oxygen Delivery Room Air Room Air Nasal Cannula Oxygen Flow Rate (L/min) 1 Pulse Oximetry (90-100 %) 94 85 L 86 L Pulse Rate (60-100 beats/min) 86 96 98 Activity Tolerance Ambulation Distance (feet) Treatment Charges O2 Evaluation - Inpatient 10/01/20 10/01/20 10/01/20 11:00 11:05 11:15 Home O2 Evaluation Test Phase Exercise Exercise Resting Oxygen Delivery Nasal Cannula Nasal Cannula Room Air Oxygen Flow Rate (L/min) 2 3 Pulse Oximetry (90-100 %) 88 L 90 95 Pulse Rate (60-100 beats/min) 99 97 85 Activity Tolerance Excellent Ambulation Distance (feet) 750 Treatment Charges
--- NOTE | 2020-10-01 11:37 | PCRCNOTE ---
HOME O2 EVAL COMPLETE, 3 LITERS WITH ACTIVITY. PT HAS HOME O2 WITH [facility]. PT'S WILL BRING IN TANK FOR DISCHARGE.
--- NOTE | 2020-10-01 12:08 | P.DS_ITS ---
DS: Admitting Diagnosis Admitting Diagnosis Admitting Diagnosis: Shortness of breath DS: Discharge Diagnosis Discharge Diagnosis (1) Shortness of breath: Code(s): R06.02 - Shortness of breath Status: Acute Assessment and Plan: * Likely multifactorial in etiology: Large right upper lobe lung mass, collapse of the right upper lobe, pleural effusions and pulmonary emboli. * Pericardial effusion was only mild on echocardiogram today. * Echo showed normal function with an EF of 60-65% * Pulmonology on board thank you for recommendations * Albuterol PRN * Lasix 20mg PO q8hr * Strict I&O * Fluid restriction 800ml daily * Heart healthy diet * Supplemental oxygen to maintain saturations above 88% (2) Hyponatremia: Code(s): E87.1 - Hypo-osmolality and hyponatremia Status: Acute Assessment and Plan: * Multiple episodes of vomiting over the last few days * Probably fluid overloaded * 2-3+ pitting edema in the bilateral lower extremities * NA is 119, urine sodium <5, Urine osmolality pending, BNP 2690 on 09/29/20 * Dr. Bonner is consulted thank you for recommendations * Sodium tabs 1gm PO Q8hr * Fluid restriction 800ml daily * Lasix 20mg PO Q8hr * Trend sodium * Labs in the AM (3) Bilateral pleural effusion: Code(s): J90 - Pleural effusion, not elsewhere classified Status: Acute Assessment and Plan: * Unable to drain due to size * Furosemide 20mg PO Q8hr * Pulmonology consult * Supplemental oxygen * Wonder if IS would help (4) Lung cancer: Qualifiers: Laterality: right Lung location: upper lobe of lung Qualified Code(s): C34.11 - Malignant neoplasm of upper lobe, right bronchus or lung Code(s): C34.90 - Malignant neoplasm of unspecified part of unspecified bronchus or lung Status: Acute Assessment and Plan: * Patient of Dr. Desai, due for chemotherapy * Dr. Desai consulted * To be managed by oncology (5) Malignant pericardial effusion: Code(s): I31.3 - Pericardial effusion (noninflammatory); C80.1 - Malignant (primary) neoplasm, unspecified Status: Acute Assessment and Plan: * Status post pericardial window at [facility] on 09/24/2020. * Limited echo showed mild pericardial effusion. * Dr. Her consulted for cardiology thank you for recommendations (6) Anemia: Qualifiers: Anemia type: unspecified type Qualified Code(s): D64.9 - Anemia, unspecified Code(s): D64.9 - Anemia, unspecified Status: Acute Assessment and Plan: * Hemoglobin and hematocrit are stable 8.3/24.6 * Could be a part of the shortness of breath as well * Could be dilutional from fluid overload * Trend H/H * Transfuse if needed * Labs in the AM * Continue Ferrous sulfate 325mg PO daily (7) Metastatic non-small cell lung cancer: Onset Date: 06/2020 Code(s): C34.90 - Malignant neoplasm of unspecified part of unspecified bronchus or lung Status: Acute DS: Summary Hospital Course Hospital Course: Patient is a 50-year-old female with past medical history of anemia, emphysema, and small cell carcinoma who presented the ED originally for shortness of breath on 09/29/2020. Patient was recently of a memorial for a pericardial window for reoccurring pericardial effusion. Upon admission patient had very low sodium at 119. Chest x-ray did reveal that the pat
--- NOTE | 2020-10-01 12:08 | PM.DS ---
DS: Admitting Diagnosis Admitting Diagnosis Admitting Diagnosis: Shortness of breath DS: Discharge Diagnosis Discharge Diagnosis (1) Shortness of breath: Code(s): R06.02 - Shortness of breath Status: Acute Assessment and Plan: Likely multifactorial in etiology: Large right upper lobe lung mass, collapse of the right upper lobe, pleural effusions and pulmonary emboli. Pericardial effusion was only mild on echocardiogram today. Echo showed normal function with an EF of 60-65% Pulmonology on board thank you for recommendations Albuterol PRN Lasix 20mg PO q8hr Strict I&O Fluid restriction 800ml daily Heart healthy diet Supplemental oxygen to maintain saturations above 88% (2) Hyponatremia: Code(s): E87.1 - Hypo-osmolality and hyponatremia Status: Acute Assessment and Plan: Multiple episodes of vomiting over the last few days Probably fluid overloaded 2-3+ pitting edema in the bilateral lower extremities NA is 119, urine sodium <5, Urine osmolality pending, BNP 2690 on 09/29/20 Dr. Bonner is consulted thank you for recommendations Sodium tabs 1gm PO Q8hr Fluid restriction 800ml daily Lasix 20mg PO Q8hr Trend sodium Labs in the AM (3) Bilateral pleural effusion: Code(s): J90 - Pleural effusion, not elsewhere classified Status: Acute Assessment and Plan: Unable to drain due to size Furosemide 20mg PO Q8hr Pulmonology consult Supplemental oxygen Wonder if IS would help (4) Lung cancer: Qualifiers: Laterality: right Lung location: upper lobe of lung Qualified Code(s): C34.11 - Malignant neoplasm of upper lobe, right bronchus or lung Code(s): C34.90 - Malignant neoplasm of unspecified part of unspecified bronchus or lung Status: Acute Assessment and Plan: Patient of Dr. Desai, due for chemotherapy Dr. Desai consulted To be managed by oncology (5) Malignant pericardial effusion: Code(s): I31.3 - Pericardial effusion (noninflammatory); C80.1 - Malignant (primary) neoplasm, unspecified Status: Acute Assessment and Plan: Status post pericardial window at [facility] on 09/24/2020. Limited echo showed mild pericardial effusion. Dr. Her consulted for cardiology thank you for recommendations (6) Anemia: Qualifiers: Anemia type: unspecified type Qualified Code(s): D64.9 - Anemia, unspecified Code(s): D64.9 - Anemia, unspecified Status: Acute Assessment and Plan: Hemoglobin and hematocrit are stable 8.3/24.6 Could be a part of the shortness of breath as well Could be dilutional from fluid overload Trend H/H Transfuse if needed Labs in the AM Continue Ferrous sulfate 325mg PO daily (7) Metastatic non-small cell lung cancer: Onset Date: 06/2020 Code(s): C34.90 - Malignant neoplasm of unspecified part of unspecified bronchus or lung Status: Acute DS: Summary Hospital Course Hospital Course: Patient is a 50-year-old female with past medical history of anemia, emphysema, and small cell carcinoma who presented the ED originally for shortness of breath on 09/29/2020. Patient was recently of a memorial for a pericardial window for reoccurring pericardial effusion. Upon admission patient had very low sodium at 119. Chest x-ray did reveal that the patient did have bilateral pleural effusions. Nephrology has seen the patient and corrected her sodium she is at baseline which is roughly 128. She was also seen by cardiology for evaluation of recurring pericardial infusion. The echo did not show that she had a pericardial effusion. Patient was also seen by Pulmonary with recommendations of following up in the clinic. Patient also reported that she was having nausea and vomiting which has been resolved and she has been able to tolerate diet. Today patient was concerned abo
[2020-10-01 15:13] LABS: Sodium 124 mmol/L (137-145)
[2020-10-01] MEDS: HEPARIN SOD FLUSH 500 UNITS/5 ML SYRINGE IV PUSH (15:45)
[2020-10-01] MEDS: traMADol HCL (*CRX) 50 MG TABLET PO (15:57)
[2020-10-02 05:17] LABS: Osmolality, Urine 544 mOsm/kg (50-1200)
[2020-10-03 18:38] LABS: Albumin 2.6 g/dL (3.8-4.8); Alpha 1 Globulin 0.8 g/dL (0.2-0.3); Beta 1 Globulin 0.4 g/dL (0.4-0.6); Protein, Total 6.2 g/dL (6.1-8.1)
== END 2020-10-01 16:15 | disposition home or self-care (01) ==
LOC: ANHED 15:37 → ANH3MED 15:38
PROVIDERS: Internal Medicine Nephrology; Nurse Practitioner; Physician Assistant; Admitting Provider Family Medicine; Emergency Provider Emergency Medicine; PCP Internal Medicine; Visit Provider Family Medicine
DX: J90 Pleural effusion, not elsewhere classified (principal); R06.02 Shortness of breath; E87.1 Hypo-osmolality and hyponatremia; C34.11 Malignant neoplasm of upper lobe, right bronchus or lung; I31.3 Pericardial effusion (noninflammatory); D64.9 Anemia, unspecified; E27.8 Other specified disorders of adrenal gland; J44.9 Chronic obstructive pulmonary disease, unspecified; Z86.711 Personal history of pulmonary embolism; Z87.891 Personal history of nicotine dependence
CPT/HCPCS: 36415; 36430; 70450; 71045; 71046; 80048; 80053; 80076; 82533; 83735; 83880; 83930; 83935; 84100; 84155; 84165; 84295; 84300; 84439; 84443; 84480; 84484; 85025; 85027; 85610; 85730; 86850; 86900; 86901; 86920; 93005; 93308; 93970; 94618; 94640; 96361; 96365; 96375; 96376; 99285; A9270; G0378; J2270; J3475; J7050; P9016

== ENCOUNTER 2020-10-17 10:43 | Inpatient (IN) | payer BC, SELFPAY ==
[2020-10-17] VITALS (11 sets, daily range): BP systolic 105–117; BP diastolic 62–83; PULSE 95–106; RESP 18–31; TEMP 36.1–36.4; O2SAT 94–100; BMI 22.1
--- NOTE | ~2020-10-17 | XR_ITS ---
XR chest 2V 10/17/2020 11:09 Indication: Lung cancer. Shortness of breath. Hypertension. Procedure: PA and lateral views of the chest Comparison: Comparison to multiple prior studies sequentially, with oldest reviewed study dated 08/27. Findings: Portacatheter tip in the condyle aspect of the SVC. Large right and moderate left pleural e ffusions. There is bilateral airspace disease which may represent compressive atelectasis although un derlying pneumonia not excluded. Impression: 1: Large right and moderate left pleural effusions. Right upper lobe mass is obscured by consolidatio n and effusion. 2: Bilateral infiltrates may represent compressive atelectasis and/or pneumonia. Reviewed, dictated and finalized at location [facility]. Impression: 1: Large right and moderate left pleural effusions. Right upper lobe mass is ob scured by consolidation and effusion. 2: Bilateral infiltrates may represent compressive atelectasis and/or pneumonia .
--- NOTE | ~2020-10-17 | US_ITS ---
US thoracentesis DATE: 10/17/2020 17:45 INDICATION: Right pleural effusion TECHNIQUE: The purpose of the procedure, technique and potential complications including bleeding and pneumothorax were discussed with the patient. The patient verbalized understanding and gave consent. Timeout procedure confirmed proper patient and procedure and sidedness. An appropriate site for percutaneous access for right-sided thoracentesis was identified at a posteri or lower intercostal space sonographically. The skin was prepared with sterile Betadine. Sterile drap e was applied. 1% lidocaine local anesthetic was introduced into the skin and underlying subcutaneous tissues. A single stick needle/catheter was introduced uneventfully into the pleural space percutaneously righ t lower right posterior intercostal space, yielding clear yellow fluid at the hub of the needle. The catheter was advanced to the needle withdrawn. 1 L of clear yellow pleural fluid was drained uneventfully into a vacuum bottle. The patient was very cooperative and tolerated the procedure without complaint or apparent complicati on. IMPRESSION: Sonographically guided percutaneous right thoracentesis procedure yielding 1 L of clear y ellowish pleural fluid Reviewed, dictated and finalized at [facility]. Reviewed, dictated and finalized at location [facility]. IMPRESSION: Sonographically guided percutaneous right thoracentesis procedure y ielding 1 L of clear yellowish pleural fluid
--- NOTE | ~2020-10-17 | CT_ITS ---
EXAMINATION: CTA chest PE protocol DATE: 10/17/2020 15:52 INDICATION: Hemoptysis. Shortness of breath. TECHNIQUE: Computed tomography angiography (CTA) of the chest was performed with 100 mL Omnipaque-350 intravenous contrast timed to evaluate the pulmonary arteries. Coronal maximum intensity projection 3D-reconstructions were created by the technologist. Automated exposure control and iterative reconst ruction technique were employed. Exam dose: 213.07 mGy-cm total exam DLP. COMPARISON: 09/22/2020 CT pulmonary scan 10/17/2020 2 view chest FINDINGS: There is residual but diminished pulmonary embolism involving both lower lobes since 021. There is diminished size and attenuation of the necrotic right upper lobe mass, with diminished stric ture of the previously occluded right upper lobe bronchus since 09/22/2020. There is malignant narrowi ng of the main right pulmonary artery. Postobstructive right upper lobe infiltrate/atelectasis. Right hilar and mediastinal lymphadenopathy. Mild malignant pericardial effusion. Persistent moderate bilateral pleural effusions with associated compressive atelectasis of lingula and both lower lobes, left greater than right. There is some soft tissue debris or possible tumor mass at the posterior trachea at T3 level. No thoracic aortic aneurysm or dissection. Included skeletal structures are unremarkable except for mild compression fracture deformities of T9 and T11.. IMPRESSION: Residual but diminished bilateral lower lobe pulmonary embolism Diminished size of right upper lobe cavitating malignancy, with evidence of necrosis, diminished leanne gnant stricture of the right upper lobe bronchus, persistent narrowing of the right main pulmonary ar yoel, right hilar and mediastinal adenopathy, probable malignant pericardial effusion, moderate bilat eral pleural effusions Postobstructive right upper lobe infiltrate/atelectasis Compressive atelectasis of the lingula and left greater than right lower lobes Reviewed, dictated and finalized at [facility]. Reviewed, dictated and finalized at location [facility]. IMPRESSION: Residual but diminished bilateral lower lobe pulmonary embolism Diminished size of right upper lobe cavitating malignancy, with evidence of nec rosis, diminished malignant stricture of the right upper lobe bronchus, persist ent narrowing of the right main pulmonary artery, right hilar and mediastinal a denopathy, probable malignant pericardial effusion, moderate bilateral pleural effusions Postobstructive right upper lobe infiltrate/atelectasis Compressive atelectasis of the lingula and left greater than right lower lobes
--- NOTE | ~2020-10-17 | XR_ITS ---
XR_[id number]_CR DATE: 10/17/2020 17:45 INDICATION: Post right thoracentesis chest radiograph TECHNIQUE: Upright AP chest following right thoracentesis COMPARISON: 10/17/2020 PA and lateral chest FINDINGS: Right Port-A-Cath catheter. Right upper lobe atelectasis/opacification. Moderately large bilateral pleural effusions with compressive atelectasis including left lower lobe a ir bronchograms. The right pleural effusion is mildly improved since right thoracentesis. No pneumothorax. IMPRESSION: Mild improvement of right pleural effusion since thoracentesis; no pneumothorax Reviewed, dictated and finalized at [facility]. Reviewed, dictated and finalized at location [facility].
--- NOTE | 2020-10-17 10:45 | ECG_ITS ---
Measurements Intervals [place] Rate: 102 P: 58 KS: 136 QRS: 59 QRSD: 69 T: 3 QT: 330 QTc: 430 Interpretive Statements SINUS TACHYCARDIA POSSIBLE LEFT ATRIAL ENLARGEMENT BORDERLINE ST-T WAVE ABNORMALITY- DIFFUSE LEADS BASELINE ARTIFACT- I, III, AVL, AVF BORDERLINE ECG Electronically Signed On 10-17-2020 11:58:50 CDT by Eitan Boles D.O.
--- NOTE | 2020-10-17 11:41 | PC.NURSE ---
Patient has port access and is requesting blood be drawn from port.
[2020-10-17 12:32] LABS: Eosinophils Percent Auto 0.2 % (0-4.4); Hematocrit 29.7 % (37.0-47.0); Hemoglobin 9.1 g/dL (12.0-15.0); Immature Granulocyte Absolute 0.03 K/mm3 (0.00-0.031); Immature Granulocyte Percent A 0.5 % (0-0.5); Lymphocytes Absolute Auto 1.23 K/mm3 (0.9-3.2); Lymphocytes Percent Auto 19.6 % (18.3-44.2); Mean Corpuscular HGB Conc 30.6 g/dl (32-36); Mean Corpuscular Hemoglobin 29.6 pg (26-34); Mean Corpuscular Volume 96.7 fl (80-100); Mean Platelet Volume 12.2 fl (7.4-10.4); Monocytes Absolute Auto 1.1 K/mm3 (0.1-0.6); Monocytes Percent Auto 17.2 % (2.6-8.5); Neutrophils Absolute Auto 3.9 K/mm3 (1.3-6.7); Neutrophils Percent Auto 62.5 % (45.5-73.1); Nucleated Red Blood Cells Absolute Auto 0.1 K/mm3 (0.0-0.012); Nucleated Red Blood Cells Perc 1.9 % (0.0-0.2); Platelet Count Result 258 k/mm3 (150-375); Red Blood Count 3.07 M/mm3 (4.2-5.4); Red Cell Distribution Width 16.3 % (11.5-14.5); White Blood Count 6.3 K/mm3 (4.5-10.0)
[2020-10-17 12:43] LABS: Anion Gap 15 mmol/L (8-16); Blood Urea Nitrogen 30 mg/dL (7-17); Calcium 9.6 mg/dL (8.4-10.2); Carbon Dioxide 33 mmol/L (22-30); Chloride 87 mmol/L (98-107); Estimated CRCL calculation 46 ml/min; Estimated Glomerular Filt Rate 52; Glucose 164 mg/dL (65-105); Potassium 3.1 mmol/L (3.4-5.0); Sodium 135 mmol/L (137-145)
--- NOTE | 2020-10-17 14:36 | ED.SOB ---
HPI - SOB/Dyspnea General Chief Complaint: Shortness of Breath/Dyspnea Stated Complaint: sob Time Seen by Provider: 10/17/20 14:06 History of Present Illness HPI Narrative: 50 yo female w/ h/o lung cancer, PE, pleural and pericardial effusions s/p pericardial window presents to the ED with SOB. She reports that she has had increased SOB for the past few days. This is associated with facial swelling and back pain. She had hemoptysis, so she was taken off of her blood thinner. No fever, chills, Related Data Home Medications Medication Instructions Recorded Confirmed cyanocobalamin (vitamin B-12) 1,000 mcg SUBLINGUAL DAILY 09/12/20 10/03/20 ferrous sulfate 325 mg PO DAILY 09/12/20 10/03/20 folic acid 1 mg PO DAILY 09/12/20 10/03/20 ondansetron 8 mg PO Q8H PRN 09/12/20 10/03/20 benzonatate 100 mg PO Q8H PRN 09/29/20 10/03/20 docusate sodium 100 mg PO Q12H 09/29/20 10/03/20 guaifenesin 600 mg PO BID 09/29/20 10/03/20 pantoprazole 40 mg PO DAILY 09/29/20 10/03/20 tramadol 50 mg PO Q6H PRN 09/29/20 10/03/20 potassium chloride 20 meq PO DAILY 10/03/20 10/03/20 Allergies Allergy/AdvReac Type Severity Reaction Status Date / Time amoxicillin Allergy Intermediate Blister on Verified 10/17/20 13:53 palms of hands Review of Systems Review of Systems: All systems reviewed & are unremarkable except as noted in HPI and below Constitutional: Constitutional: Denies chills and Denies fever(s) ENT: Denies sore throat Cardiovascular: Cardiovascular: Denies chest pain Respiratory: Respiratory: Reports dyspnea Gastrointestinal: Gastrointestinal: Denies abdominal pain Genitourinary: Genitourinary: Reports no additional female genitourinary complaints Musculoskeletal: Musculoskeletal: Reports back pain Neurologic: Reports weakness [facility] Past Medical History Medical History Anemia Emphysema lung Essential hypertension Metastatic non-small cell lung cancer (06/2020) Pericardial effusion with cardiac tamponade Effusion drained on 08/17/20. Pericardial window at [facility] 09/23/2020. Pulmonary embolism Right adrenal mass Tobacco abuse Reportedly quit smoking on 08/07/2020. Surgical History Surgical History History of arthroscopic surgery of shoulder Removal of bone spurs from the AC joint. History of bunionectomy of right great toe History of dilation and curettage History of hysterectomy Status post creation of pericardial window (09/24/20) Lewis teeth removed Family History Family History Grandparent Malignant neoplasm of prostate Grandparent Diabetes mellitus Father Acute myocardial infarction Mother Gastric disease Other Pulmonary embolism Social History Social History Social History: Surrogate decision maker: Yosef Mora, . Code status: Full code. Smoking packs per day: 1 Smoking cigarettes per day: 20.0 Years smoked: 25 Smoking pack-years: 25.00 Smoking status: Former smoker Second hand tobacco smoke exposure: No Alcohol intake: current Drinks per week: 3 Substance use: never Substance use type: does not use Additional living arrangements comments: The patient is and lives with her and 2 children in [place]. Additional occupation/education comments: Works for [employer]. Gender identity (if verbalized by the patient): Female Spiritual care concerns: No Exam Const: General: no acute distress and ill appearing acutely and chronically Orientation/consciousness: patient oriented x3 HENMT: Other: Mild facial swelling and cyanosis to the lips Eyes: Pupils: Equal, round and reactive pupils present Cardio: Jugular venous distension: JVD Rate: regular rate Rhythm: regular rhythm GI:
[2020-10-17 15:27] LABS: Lactic Acid Reflex 3.9 mmol/L (0.7-2.1)
[2020-10-17 15:28] LABS: Alanine Aminotransferase 21 U/L (4-35); Alkaline Phosphatase 117 U/L (38-126); Aspartate Amino Transferase 41 U/L (14-36); Bilirubin,Total 0.9 mg/dL (0.2-1.3)
[2020-10-17 18:12] LABS: Reflex Lactic Acid Yes or No Add Lactic
[2020-10-17] MEDS: MORPHINE SULFATE (*CRX) 4 MG/ML INJ IV PUSH (18:12)
[2020-10-17 19:04] LABS: Lactic Acid 4.6 mmol/L (0.7-2.1)
[2020-10-17] MEDS: SODIUM CHLORIDE 0.9% IV 500 ML IV CONT (19:11)
--- NOTE | 2020-10-17 21:00 | ADMGEN ---
This patient, Elaina Mora, was admitted to Medical Room 340-01. Patient/family oriented to hospital policies and general routines including ID bracelet, bed and alarms, visiting hours, pain management, procedures, bathroom and other care routines, personal items, smoking policy, room service/diet, and visiting hours. Information on how to activate the Rapid Response Team has been discussed. Patient/Family are encouraged to report perceived risks to care and to ask questions if they do not understand what they are told or what they should do.
--- NOTE | 2020-10-17 21:36 | PM.IMHP ---
H&P: HPI History of Present Illness Date/Time: 10/17/20 21:36Thimeme is a 50-year-old female patient who recently was diagnosed with non-small cell lung cancer and pulmonary embolism. Patient recently had a pericardial centesis using some xiphoid access. Echocardiographic guidance for drainage on 08/17/2020. The patient does have oxygen at home at 3 L with activity. However the patient stated she had not used it for a week. The patient had some hemoptysis and was taken off of Eliquis for brief period time and then placed on a lower dose of Eliquis. Dr. greenberg has been consulted. The patient had a CT a performed today in the emergency room which was read as the followingesidual but diminished bilateral lower lobe pulmonary embolism Diminished size of right upper lobe cavitating malignancy, with evidence of necrosis, diminished malignant stricture of the right upper lobe bronchus, persistent narrowing of the right main pulmonary artery, right hilar and mediastinal adenopathy, probable malignant pericardial effusion, moderate bilateral pleural effusions Postobstructive right upper lobe infiltrate/atelectasis Compressive atelectasis of the lingula and left greater than right lower lobes the patient is currently on oxygen at 4 L per nasal cannula. Where she stated that she had not used it mostly weak and today she became short of breath and was needing her oxygen. The patient has some edema to the right side of her face right neck and right arm. She has a bluish color to the right side of her face. 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 I discussed with the ER physician that I believe the patient needed to be transferred to high level of care. I also spoke to my collaborative who stated that the patient may be admitted to our hospital. I explained that the quill layer who saw her the last admission earlier this month stated if her pleural effusions increased that she may need a pleural x catheter or pleurodesis. Her last admission she had moderate pleural effusions and today she has large pleural effusion. The patient was sent to Interventional Radiology where she had 1 L fluid removed from her right pleural effusion. CT also read that there is some soft tissue debris or possible tumor mass at the posterior trachea at T3 level. I discussed code status with the patient and she stated that she wanted to be a full code. I had called Dr. 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 Once I assessed the patient and saw that she has edema to the right side of her face and right neck and right arm I felt that this patient needed to be transferred to higher level of care. Therefore I spoke to Dr. greenberg at her oncologist and he agrees that the patient needs to be transferred. I also spoke with the electrotype molder who agrees that the patient needs to be transferred to high level care. I have called multiple hospitals to see if we can get her transferred. [facility] has agreed to [facility] the patient but she is 7th on the list to be Transferred. The patient's potassium was found to be 3.1. the patient's potassium had not been replaced in the emergency room and is now ordered. Patient is crying and discomfort. She had been given morphine in the emergency room and IV fluids. Her lactic went up from 3.9 to 4.6. Glucose is 164. The patient is being admitted inpatient services. date of admission is 10/17/2020 Chief Complaint: Shortness of breath Review of Systems Review of Systems: All systems reviewed & are unremarkable except as noted in HPI and below Constitutional: Constitutional: Reports as per HPI and Reports no additional constitutional complaints Eyes: Eyes: Reports as per HPI and Reports no additional eye complaints ENT: Reports system reviewed and no additional complaints, except as documented and Reports Normal hearing present Cardiovascular: Cardio
[2020-10-17] MEDS: MORPHINE SULFATE (*CRX) 2 MG/ML INJ IV PUSH (22:22)
[2020-10-17] MEDS: POTASSIUM CHLORIDE 20 MEQ PACKET (FOR LIQUID) 40 MEQ PO (22:56)
[2020-10-17] MEDS: APIXABAN 5 MG TABLET PO (22:57)
[2020-10-17] MEDS: DOCUSATE SODIUM 100 MG CAPSULE PO (22:57)
[2020-10-17] MEDS: guaiFENesin 12 HR 600 MG TABCR PO (22:57)
[2020-10-17] MEDS: HYDROcodone/acetaminophen (*CRX) 5-325 MG TABLET 1 TAB PO (22:58)
[2020-10-17] MEDS: SODIUM CHLORIDE 0.9% IV 1,000 ML 75 ML IV CONT (22:59)
[2020-10-17] MEDS: ONDANSETRON HCL ODT 4 MG TABLET 8 MG PO (23:16)
[2020-10-17 23:46] LABS: EDCOVIDSCREEN Negative (Negative)
[2020-10-17 23:57] LABS: Lactic Acid Reflex 2.4 mmol/L (0.7-2.1)
[2020-10-18] VITALS (14 sets, daily range): BP systolic 107–113; BP diastolic 70–77; PULSE 82–101; RESP 16–21; TEMP 36.1–36.6; O2SAT 94–100
[2020-10-18] MEDS: IPRATROPIUM BR 0.02% INH SOLN 0.5 MG/2.5 ML VIAL INHALATION ×3 (02:21→13:53)
[2020-10-18] MEDS: HYDROcodone/acetaminophen (*CRX) 5-325 MG TABLET 1 TAB PO ×2 (06:03→15:41)
[2020-10-18 06:40] LABS: Lactic Acid Reflex 2.1 mmol/L (0.7-2.1)
[2020-10-18 06:46] LABS: Alanine Aminotransferase 16 U/L (4-35); Albumin Level 2.6 g/dL (3.5-5.1); Alkaline Phosphatase 101 U/L (38-126); Anion Gap 15 mmol/L (8-16); Aspartate Amino Transferase 28 U/L (14-36); Bilirubin,Total 0.9 mg/dL (0.2-1.3); Blood Urea Nitrogen 30 mg/dL (7-17); Calcium 9.1 mg/dL (8.4-10.2); Carbon Dioxide 27 mmol/L (22-30); Chloride 91 mmol/L (98-107); Estimated CRCL calculation 37 ml/min; Estimated Glomerular Filt Rate 40; Glucose 175 mg/dL (65-105); Magnesium 1.5 mg/dL (1.6-2.3); Potassium 3.4 mmol/L (3.4-5.0); Sodium 133 mmol/L (137-145)
[2020-10-18] MEDS: MORPHINE SULFATE (*CRX) 2 MG/ML INJ IV PUSH ×2 (09:02→13:39)
[2020-10-18] MEDS: SODIUM CHLORIDE 0.9% IV 1,000 ML 75 ML IV CONT (09:04)
[2020-10-18] MEDS: guaiFENesin 12 HR 600 MG TABCR PO (09:05)
[2020-10-18] MEDS: DOCUSATE SODIUM 100 MG CAPSULE PO (09:05)
[2020-10-18] MEDS: POTASSIUM CHLORIDE 20 MEQ TABLET.ER PO (09:05)
[2020-10-18] MEDS: APIXABAN 5 MG TABLET PO (09:05)
[2020-10-18] MEDS: CYANOCOBALAMIN 1,000 MCG TABLET 1000 MCG BY MOUTH (09:05)
[2020-10-18] MEDS: FERROUS SULFATE 324 MG TABLET PO (09:05)
[2020-10-18] MEDS: FOLIC ACID 1 MG TABLET PO (09:06)
[2020-10-18] MEDS: PANTOPRAZOLE 40 MG TABLET PO (09:06)
[2020-10-18] MEDS: MAGNESIUM SULF 2 GM/WATER 50ML 2 GM/50 ML BAG IVPB (09:12)
[2020-10-18 09:16] LABS: Reflex Lactic Acid Yes or No Add Lactic
[2020-10-18] MEDS: HEPARIN SOD FLUSH 500 UNITS/5 ML SYRINGE (09:42)
[2020-10-18 10:17] LABS: Free T4 Free Thyroxine Reflex 1.66 ng/dL (0.78-2.19)
[2020-10-18 10:53] LABS: Lactic Acid 3.9 mmol/L (0.7-2.1)
[2020-10-18 11:22] LABS: Total Triiodothyronine (T3) 0.68 NG/ML (0.97-1.69)
--- NOTE | 2020-10-18 13:50 | PM.IMPN ---
Progress Note: A&P Assessment and Plan (1) Bilateral pleural effusion: Code(s): J90 - Pleural effusion, not elsewhere classified Status: Acute Assessment and Plan: Status post thoracentesis with removal of 1 L of clear yellow fluid. Follow-up chest x-ray with improved pleural effusion bilaterally. Suspicion of SVC syndrome and planned for transfer to [facility] for further evaluation and management Dr. mullins has been consulted and agrees with the same for evaluation of SVC syndrome and further need for inpatient radiation therapy. (2) Malignant pericardial effusion: Code(s): I31.3 - Pericardial effusion (noninflammatory); C80.1 - Malignant (primary) neoplasm, unspecified Status: Acute Assessment and Plan: The patient did have a pericardial window performed [facility] recently (3) Metastatic non-small cell lung cancer: Onset Date: 06/2020 Code(s): C34.90 - Malignant neoplasm of unspecified part of unspecified bronchus or lung Status: Acute Assessment and Plan: Dr. greenberg is her oncologist. Looks like she has received 3 different types of chemotherapy. Currently on chemotherapy CT with diminished size of right upper lobe cavitating malignancy with evidence of necrosis Dymista magnitude malignant stricture of the right upper lobe bronchus persistent narrowing of the right main pulmonary artery right hilar and mediastinal adenopathy probable malignant pericardial effusion moderate bilateral pleural effusions (4) Pulmonary embolism: Qualifiers: Pulmonary embolism type: single subsegmental (without acute cor pulmonale) Qualified Code(s): I26.93 - Single subsegmental pulmonary embolism without acute cor pulmonale Code(s): I26.99 - Other pulmonary embolism without acute cor pulmonale Status: Acute Assessment and Plan: Continue with Eliquis. CT with residual but reduced bilateral lower lobe pulmonary embolism (5) COPD (chronic obstructive pulmonary disease): Code(s): J44.9 - Chronic obstructive pulmonary disease, unspecified Status: Acute Assessment and Plan: We will do Xopenex and Atrovent Nebs. (6) Hypokalemia: Code(s): E87.6 - Hypokalemia Status: Acute Assessment and Plan: Patient is on a daily potassium. Continue to monitor. (7) Lactic acidosis: Code(s): E87.2 - Acidosis Status: Acute Assessment and Plan: Still high. Continue with IV fluid hydration (8) Anemia: Code(s): D64.9 - Anemia, unspecified Status: Acute Assessment and Plan: Counts as stable continue to monitor (9) Acute kidney injury: Code(s): N17.9 - Acute kidney failure, unspecified Status: Acute Assessment and Plan: Creatinine bumped up today to 1.4 from baseline of 0.60 continue IV hydration and continue to monitor urine output is adequate (10) Hypomagnesemia: Code(s): E83.42 - Hypomagnesemia Status: Acute Assessment and Plan: Replace with 2 g of magnesium sulfate IV today (11) Hyponatremia: Code(s): E87.1 - Hypo-osmolality and hyponatremia Status: Acute Assessment and Plan: Improved and much better from last admission. Last admissions ER his sodium level of 119 (12) DVT prophylaxis: Code(s): Z29.9 - Encounter for prophylactic measures, unspecified Status: Acute Assessment and Plan: On Eliquis Subjective Date/time seen: 10/18/20 13:50 Interval history: feels okay. no fever, chills. pateint has some swelling inher facial and neck area and reports some soreness in those areas as well. no chest pain. Review of Systems Review of Systems: All systems reviewed & are unremarkable except as noted in HPI and below Constitutional: Constitutional: Reports as per HPI and Reports no additional constitutional complaints Eyes: Eyes: Reports as per HPI and Reports no additional eye compl
--- NOTE | 2020-10-18 15:10 | PC.NURSE ---
report given to Luca gaitan [facility] on [place], reviewed pt condition and plan of care
--- NOTE | 2020-10-18 16:57 | PM.CNPUL ---
History of Present Illness History of Present Illness Consult date: 10/18/20 Requesting physician: Clarissa Wallace NP Chief complaint: Bilateral pleural effusions, Shortness of breath Narrative: Patient is being transferred to [facility], so no formal consult was performed. [facility] Past Medical History Medical History Anemia Emphysema lung Essential hypertension Metastatic non-small cell lung cancer (06/2020) Pericardial effusion with cardiac tamponade Effusion drained on 08/17/20. Pericardial window at [facility] 09/23/2020. Pulmonary embolism Right adrenal mass Tobacco abuse Reportedly quit smoking on 08/07/2020. Surgical History Surgical History History of arthroscopic surgery of shoulder Removal of bone spurs from the AC joint. History of bunionectomy of right great toe History of dilation and curettage History of hysterectomy Status post creation of pericardial window (09/24/20) [place] teeth removed Family History Family History Grandparent Malignant neoplasm of prostate Grandparent Diabetes mellitus Father Acute myocardial infarction Mother Gastric disease Other Pulmonary embolism Social History Social History Social History: Surrogate decision maker: Yosef Mora, . Code status: Full code. Smoking packs per day: 0.5 Smoking cigarettes per day: 10.0 Years smoked: 25 Smoking pack-years: 12.50 Smoking status: Former smoker Tobacco type: cigarettes Second hand tobacco smoke exposure: No Alcohol intake: never Substance use: never Substance use type: does not use Additional living arrangements comments: The patient is and lives with her and 2 children in [place]. Additional occupation/education comments: Works for [employer]. Gender identity (if verbalized by the patient): Female Spiritual care concerns: No Meds Home Medications and Allergies Home Medications Medication Instructions Recorded Confirmed Type cyanocobalamin (vitamin B-12) 1,000 mcg SUBLINGUAL DAILY 09/12/20 10/17/20 History ferrous sulfate 325 mg PO DAILY 09/12/20 10/17/20 History folic acid 1 mg PO DAILY 09/12/20 10/17/20 History ondansetron 8 mg PO Q8H PRN 09/12/20 10/17/20 History albuterol sulfate 90 mcg/actuation 2 inh INHALATION Q4H PRN #6.7 g 09/16/20 10/17/20 Rx aerosol inhaler tiotropium bromide 2.5 2 puff INHALATION DAILY #4 g 09/16/20 10/17/20 Rx mcg/actuation mist for inhalation benzonatate 100 mg PO Q8H PRN 09/29/20 10/17/20 History docusate sodium 100 mg PO Q12H 09/29/20 10/17/20 History guaifenesin 600 mg PO BID 09/29/20 10/17/20 History pantoprazole 40 mg PO DAILY 09/29/20 10/17/20 History tramadol 50 mg PO Q6H PRN 09/29/20 10/17/20 History hydrocodone-acetaminophen 1 tablet PO Q4-6H PRN #28 tablet 10/01/20 10/17/20 Rx potassium chloride 20 meq PO DAILY 10/03/20 10/17/20 History apixaban [Eliquis] 5 mg PO BID 10/17/20 10/17/20 History Allergies Allergy/AdvReac Type Severity Reaction Status Date / Time amoxicillin Allergy Intermediate Blister on Verified 10/17/20 21:36 palms of hands Vital Signs Vital Signs - 24 hr 10/17/20 17:42 10/17/20 17:50 10/17/20 18:49 Temperature Pulse Rate 100 105 H 106 H Respiratory Rate 30 H 30 H 31 H Blood Pressure 108/69 105/70 107/73 Pulse Oximetry 100 97 97 10/17/20 21:05 10/17/20 21:11 10/17/20 22:33 Temperature 36.1 C L Pulse Rate 105 H 105 H Respiratory Rate 20 Blood Pressure 111/73 Pulse Oximetry 99 99 10/18/20 00:00 10/18/20 02:25 10/18/20 02:34 Temperature Pulse Rate 95 98 96 Respiratory Rate 16 16 Blood Pressure Pulse Oximetry 94 10/18/20 02:50 10/18/20 04:00 10/18/20 06:18 Temperature 36.1 C L Pulse Rate 97
--- NOTE | 2020-11-06 11:46 | PDONCCN ---
HPI - Date of Consult Date/Time: 11/06/20 11:46 Requesting Physician: Vance Grant MD Primary Care Provider: John Goodson DO - Consult Narrative Reason for consult: lung cancer Narrative: Elaina Mora is a 50 year old female Patient was discharged prior to visit Review of Systems - Neurologic Reports system reviewed and no additional complaints, except as documented, Reports hearing normal, Reports weakness PMFSH Medical History: Medical History (Last Reviewed 10/17/20 @ 22:38 by Clarissa Wallace NP) Anemia Emphysema lung Essential hypertension Metastatic non-small cell lung cancer Onset Date: 06/2020 Pericardial effusion with cardiac tamponade Effusion drained on 08/17/20. Pericardial window at [facility] 09/23/2020. Pulmonary embolism Right adrenal mass Tobacco abuse Reportedly quit smoking on 08/07/2020. Surgical History: Surgical History (Last Reviewed 10/17/20 @ 22:38 by Clarissa Wallace NP) History of arthroscopic surgery of shoulder Removal of bone spurs from the AC joint. History of bunionectomy of right great toe History of dilation and curettage History of hysterectomy Status post creation of pericardial window Onset Date: 09/24/20 [place] teeth removed Family History: Family History (Last Reviewed 10/17/20 @ 22:38 by Clarissa Wallace NP) Grandparent Malignant neoplasm of prostate Grandparent Diabetes mellitus Father Acute myocardial infarction Mother Gastric disease Other Pulmonary embolism - Social History Social History: Social History (Last Reviewed 10/17/20 @ 22:38 by Clarissa Wallace NP) Gender Identity: Gender identity (if verbalized by the patient): Female Alcohol Use: Alcohol intake: never Alcohol use details: patient states that she drinks moderatly Substance Use: Substance use: never Substance use type: does not use Others: Spiritual care concerns: No Smoking Status: Smoking status: Former smoker Tobacco type: cigarettes Second hand tobacco smoke exposure: No Smoking Pack-years: Smoking packs per day: 0.5 Smoking cigarettes per day: 10.0 Years smoked: 25 Smoking pack-years: 12.50 Meds Home Medications Medication Instructions Recorded Confirmed Type cyanocobalamin (vitamin B-12) 1,000 mcg SUBLINGUAL DAILY 09/12/20 10/17/20 History ferrous sulfate 325 mg PO DAILY 09/12/20 10/17/20 History folic acid 1 mg PO DAILY 09/12/20 10/17/20 History ondansetron 8 mg PO Q8H PRN 09/12/20 10/17/20 History albuterol sulfate 90 mcg/actuation 2 inh INHALATION Q4H PRN #6.7 g 09/16/20 10/17/20 Rx aerosol inhaler tiotropium bromide 2.5 2 puff INHALATION DAILY #4 g 09/16/20 10/17/20 Rx mcg/actuation mist for inhalation benzonatate 100 mg PO Q8H PRN 09/29/20 10/17/20 History docusate sodium 100 mg PO Q12H 09/29/20 10/17/20 History guaifenesin 600 mg PO BID 09/29/20 10/17/20 History pantoprazole 40 mg PO DAILY 09/29/20 10/17/20 History tramadol 50 mg PO Q6H PRN 09/29/20 10/17/20 History hydrocodone-acetaminophen 1 tablet PO Q4-6H PRN #28 tablet 10/01/20 10/17/20 Rx potassium chloride 20 meq PO DAILY 10/03/20 10/17/20 History apixaban [Eliquis] 5 mg PO BID 10/17/20 10/17/20 History Allergies Allergy/AdvReac Type Severity Reaction Status Date / Time amoxicillin Allergy Intermediate Blister on Verified 10/17/20 21:36 palms of hands Results - Labs CBC & Chem 7: 10/17/20 12:23 10/18/20 05:43 Assessment and Plan - Additional Plan Patient was discharged prior to visit
--- NOTE | 2020-11-11 07:30 | PM.TDS ---
Transfer Discharge Sum: Prov Provider Date of admission: 10/17/20 16:59 Primary care physician: John Goodson DO Admitting clinician: Vance Grant MD Consults: 10/17/20 Consult to Physician Routine Comment: Consulting Provider: Evonne Banks call center director/MD group to consult: Dr. Banks Reason for consultation: large bilateral pleural effusion Has provider been notified: Yes 10/17/20 17:00 Consult to Physician Routine Comment: Consulting Provider: Arthur Desai Reason for consultation: Lung cancer Has provider been notified: Yes Consult to Physician Routine Comment: Consulting Provider: Frankie Salcido Reason for consultation: Pleural effusions Has provider been notified: No DS: Admitting Diagnosis Admitting Diagnosis Admitting Diagnosis: shortness of breath DS: Discharge Diagnosis Discharge Diagnosis (1) Bilateral pleural effusion: Code(s): J90 - Pleural effusion, not elsewhere classified Status: Acute (2) Shortness of breath: Code(s): R06.02 - Shortness of breath Status: Acute (3) Pulmonary embolism: Qualifiers: Pulmonary embolism type: single subsegmental (without acute cor pulmonale) Qualified Code(s): I26.93 - Single subsegmental pulmonary embolism without acute cor pulmonale Code(s): I26.99 - Other pulmonary embolism without acute cor pulmonale Status: Acute (4) Right adrenal mass: Code(s): E27.8 - Other specified disorders of adrenal gland Status: Acute (5) Cavitating mass in right upper lung lobe: Onset Date: ~07/25/20 Code(s): J98.4 - Other disorders of lung Status: Acute (6) Elevated LFTs: Code(s): R79.89 - Other specified abnormal findings of blood chemistry Status: Acute (7) Metastatic non-small cell lung cancer: Onset Date: 06/2020 Code(s): C34.90 - Malignant neoplasm of unspecified part of unspecified bronchus or lung Status: Acute Transfer Discharge Sum: Med Medications Active and Home Medications: Home Medications cyanocobalamin (vitamin B-12) 1,000 mcg SUBLINGUAL DAILY 09/12/20 [History Confirmed 10/17/20] ferrous sulfate 325 mg PO DAILY 09/12/20 [History Confirmed 10/17/20] folic acid 1 mg PO DAILY 09/12/20 [History Confirmed 10/17/20] ondansetron 8 mg PO Q8H PRN 09/12/20 [History Confirmed 10/17/20] albuterol sulfate 90 mcg/actuation aerosol inhaler 2 inh INHALATION Q4H PRN #6.7 g 09/16/20 [Rx Confirmed 10/17/20] tiotropium bromide 2.5 mcg/actuation mist for inhalation 2 puff INHALATION DAILY #4 g 09/16/20 [Rx Confirmed 10/17/20] benzonatate 100 mg PO Q8H PRN 09/29/20 [History Confirmed 10/17/20] docusate sodium 100 mg PO Q12H 09/29/20 [History Confirmed 10/17/20] guaifenesin 600 mg PO BID 09/29/20 [History Confirmed 10/17/20] pantoprazole 40 mg PO DAILY 09/29/20 [History Confirmed 10/17/20] tramadol 50 mg PO Q6H PRN 09/29/20 [History Confirmed 10/17/20] hydrocodone-acetaminophen 1 tablet PO Q4-6H PRN #28 tablet 10/01/20 [Rx Confirmed 10/17/20] potassium chloride 20 meq PO DAILY 10/03/20 [History Confirmed 10/17/20] apixaban [Eliquis] 5 mg PO BID 10/17/20 [History Confirmed 10/17/20] Transfer Discharge Sum: Hosp Hospital Course Hospital course: Elaina Mora is a 50 year old female with (1) Bilateral pleural effusion: Status post thoracentesis with removal of 1 L of clear yellow fluid. Follow-up chest x-ray with improved pleural effusion bilaterally. Suspicion of SVC syndrome and planned for transfer to [facility] for further evaluation and management Dr. Desai has been consulted and agrees with the same for evaluation of SVC syndrome and further need for inpatient radiation therapy. (2) Malignant pericardial effusion: The patient did have a pericardial window performed [facility] recently (3) Metastatic non-small cell lung cancer: Dr. desai is her oncologist. Looks like she has received 3 different types of c
== END 2020-10-18 16:57 | disposition short-term general hospital (02) | DRG 180 ==
LOC: ANHED 17:10 → ANH3MED 18:56
PROVIDERS: Family Medicine; Nurse Practitioner; Admitting Provider Internal Medicine; Emergency Provider Emergency Medicine; PCP Internal Medicine; Visit Provider Internal Medicine
DX: C34.11 Malignant neoplasm of upper lobe, right bronchus or lung; I26.93 Single subsegmental thrombotic pulmonary embolism without acute cor pulmonale; N17.9 Acute kidney failure, unspecified; C79.9 Secondary malignant neoplasm of unspecified site; I31.3 Pericardial effusion (noninflammatory); J90 Pleural effusion, not elsewhere classified; E87.6 Hypokalemia; E87.2 Acidosis; E87.1 Hypo-osmolality and hyponatremia; E83.42 Hypomagnesemia; Z20.822 Contact with and (suspected) exposure to COVID-19; E27.8 Other specified disorders of adrenal gland; J43.9 Emphysema, unspecified; I10 Essential (primary) hypertension; D64.9 Anemia, unspecified; Z79.899 Other long term (current) drug therapy; Z87.891 Personal history of nicotine dependence; Z88.1 Allergy status to other antibiotic agents
CPT/HCPCS: 32555; 36415; 71046; 71275; 80048; 80053; 80076; 83605; 83735; 84439; 84443; 84480; 85025; 87040; 87426; 93005; 94640; 97165; 99285; A9270; C9803; J2270; J3475; J7030; J7040; Q9967